=== PATIENT | male | born 1965 | race Two or more races ===

== ENCOUNTER 2020-02-14 20:54 | Inpatient (IN) | payer OTHER ==
[~2020-02-14] VITALS: Ht 177.8 cm; Wt 77.6 kg
--- NOTE | 2020-02-14 21:00 | NUR ---
received patient in no acute distress in bed. patient is a/o x 2 with confusion, but patient able to follow simple commands. Patient is on room air and tolerating well. skin check performed with no skin issues noted. patient transferred to bed and tolerated well. patient right arm is cold, pulseless and blue due to occlusion. Patient transferred from [facility] for emergency surgery. No IV upon arrival and will establish IV prior to surgery. bed in low lock position with rial sup x 2 .call light within reach and all safety measure ensured and carried out.
[2020-02-14] MEDS ORDERED: ONDANSETRON HCL/PF 4 MG/2 ML VIAL IVP PRN (21:30)
[2020-02-14] MEDS ORDERED: HEPARIN SODIUM, PORCINE 5000 UNITS/1 ML VIAL IV ONE (21:30)
[2020-02-14] MEDS ORDERED: MIDAZOLAM HCL 2 MG/2ML VIAL ONE (21:30)
[2020-02-14] MEDS ORDERED: Z GUARD REMEDY 2 OZ OINT TP PRN (21:30)
[2020-02-14] MEDS ORDERED: ROCURONIUM BROMIDE 50 MG/5 ML ONE ×2 (21:30→22:18)
[2020-02-14] MEDS ORDERED: ANESTHESIA TRAY IN PYXIS 1 EA TRAY MC ONE (21:30)
[2020-02-14] MEDS ORDERED: HEPARIN INFUSION/D5W 500 ML IV PRN ×2 (21:30→23:30)
[2020-02-14] MEDS ORDERED: HYDROMORPHONE INJ 2 MG/ML DISP.SYRIN ONE (21:30)
[2020-02-14] MEDS ORDERED: IOHEXOL 240MG/ML 0 ML IV ONE (21:38)
[2020-02-14] MEDS ORDERED: LIDOCAINE 1% INJ 50 ML MDV IJ ONE (21:38)
--- NOTE | 2020-02-14 22:15 | NUR ---
Patient taken by surgery team to perform a thrombectomy, fasciotomy and possible angiogram.
[2020-02-14] MEDS ORDERED: HEPARIN SODIUM, PORCINE 1,000 UNIT/ML VIAL ONE (23:18)
[2020-02-14] MEDS ORDERED: CELLULOSE,OXIDIZED 1 EACH EACH MC ONE (23:19)
[2020-02-15] VITALS (28 sets, daily range): BP systolic 102–142; BP diastolic 58–85
--- NOTE | 2020-02-15 00:44 | NUR ---
awaiting patient arrival from surgery. Unable to give medication at this time.
[2020-02-15] MEDS: IV NS 0.9% 1,000 ML IV PRN ×3 (01:33→16:00)
[2020-02-15] MEDS ORDERED: CEFAZOLIN 1 GM in IV NS 0.9% 50 ML IV SCH ×7 (02:00→10:00)
[2020-02-15] MEDS ORDERED: HEPARIN SODIUM,PORCINE/PF 50 UNIT/5 ML DISP.SYRIN IV ONE (02:00)
[2020-02-15] MEDS ORDERED: HEPARIN SODIUM, PORCINE 5000 UNITS/1 ML VIAL IV ONE (02:00)
[2020-02-15] MEDS: BLOOD SUGAR DIAGNOSTIC 1 EACH STRIP IN SCH ×22 (02:25→23:44)
[2020-02-15] MEDS: PANTOPRAZOLE 40 MG VIAL IV SCH ×2 (02:25→09:23)
[2020-02-15] MEDS: INSULIN REGULAR, HUMAN 100 UNIT in IV NS 0.9% 99 ML IV PRN ×4 (02:52→19:01)
[2020-02-15 04:50] LABS: BASOPHILS # (AUTO) 0.1 /CMM (0.0-0.2); BASOPHILS % (AUTO) 0.4 % (0.0-2.0); HEMATOCRIT 45 % (39-51); LYMPHOCYTES # (AUTO) 0.9 /CMM (0.8-4.8); LYMPHOCYTES % (AUTO) 4.2 % (20.0-44.0); MEAN CORPUSCULAR HGB CONC 33 g/dl (31.0-36.0); MEAN CORPUSCULAR VOLUME 87 fL (80-96); MONOCYTES % (AUTO) 9.1 % (2.0-12.0); NEUTROPHILS # (AUTO) 18.6 /CMM (1.8-8.9); NEUTROPHILS % (AUTO) 86.3 % (43.0-81.0); PLATELET COUNT (AUTO) 177 /CMM (150-450); RED BLOOD CELL COUNT(AUTO) 5.18 MIL/uL (4.5-6.0); WHITE BLOOD COUNT (AUTO) 21.6 K/uL (4.3-11.0)
[2020-02-15 05:10] LABS: CALCIUM, SERUM 7.6 mg/dL (8.5-10.1); CREATININE 1.1 mg/dL (0.6-1.3); MAGNESIUM 2.8 mg/dL (1.8-2.4); PHOSPHORUS 4.2 mg/dL (2.5-4.9); POTASSIUM 5.5 mmol/L (3.5-5.1)
[2020-02-15] MEDS: MORPHINE SULFATE INJ 2 MG/ML DISP.SYRIN IV PRN ×5 (06:41→22:07)
[2020-02-15] MEDS: CEFAZOLIN 1 GM in IV NS 0.9% 50 ML IV SCH ×2 (08:55→16:24)
[2020-02-15 13:17] LABS: CALCIUM, SERUM 7.5 mg/dL (8.5-10.1); CREATININE 1.3 mg/dL (0.6-1.3); POTASSIUM 4.9 mmol/L (3.5-5.1)
--- NOTE | 2020-02-15 19:32 | NUR ---
ASSURANCE ANALYST CLOSING PATIENT AWAKE ORIENTED A/O X2 . PATIENT ON NASAL CANNULA 4L . NO SIGNS OF ACUTE RESPIRATORY DISTRESS. PATIENT ON BED SIDE MONITOR ST 100'S . RIGHT ARM FASCIOTOMY. WITH DRAIN PAULETTE DRAINING RED SANGUINEOUS . WITH PERCY BANDAGE ARM. PATIENT HAS DRY AND RASH GENERALIZED. PATIENT HAS FA 20G. WITH NS 125ML/HR HEPARIN DRIP 1400 UNIT 28ML/HR. INSULIN DRIP RUNNING AT 4 UNITS AN HOUR. PATIENT IS COOPERATIVE WITH CARE. TIMES BED LOCKED LOWEST POSITION CALL LIGHT WITH IN REACH ALL SAFETY MEASURE IMPLEMENTED PER HOSPITAL POLICY.
[2020-02-15 20:32] LABS: CALCIUM, SERUM 7.4 mg/dL (8.5-10.1); CREATININE 1.1 mg/dL (0.6-1.3); POTASSIUM 4.4 mmol/L (3.5-5.1)
[2020-02-16] VITALS (15 sets, daily range): BP systolic 106–128; BP diastolic 43–85
[2020-02-16] MEDS: BLOOD SUGAR DIAGNOSTIC 1 EACH STRIP IN SCH ×11 (00:43→22:53)
[2020-02-16 04:29] LABS: BASOPHILS # (AUTO) 0.1 /CMM (0.0-0.2); BASOPHILS % (AUTO) 0.3 % (0.0-2.0); EOSINOPHILS % (AUTO) 0.7 % (0.0-6.0); HEMATOCRIT 36 % (39-51); HEMOGLOBIN 11.7 g/dL (13.5-17.5); LYMPHOCYTES # (AUTO) 1.7 /CMM (0.8-4.8); LYMPHOCYTES % (AUTO) 8.6 % (20.0-44.0); MEAN CORPUSCULAR HGB CONC 33 g/dl (31.0-36.0); MEAN CORPUSCULAR VOLUME 87 fL (80-96); MONOCYTES # (AUTO) 2.9 /CMM (0.1-1.30); MONOCYTES % (AUTO) 14.3 % (2.0-12.0); NEUTROPHILS # (AUTO) 15.3 /CMM (1.8-8.9); NEUTROPHILS % (AUTO) 76.1 % (43.0-81.0); PLATELET COUNT (AUTO) 213 /CMM (150-450); RED BLOOD CELL COUNT(AUTO) 4.07 MIL/uL (4.5-6.0)
[2020-02-16 04:45] LABS: ALBUMIN 1.8 g/dL (3.4-5.0); BILIRUBIN,TOTAL 0.7 mg/dL (0.2-1.0); CALCIUM, SERUM 7.2 mg/dL (8.5-10.1); MAGNESIUM 2.4 mg/dL (1.8-2.4); PHOSPHORUS 2.5 mg/dL (2.5-4.9); POTASSIUM 4.1 mmol/L (3.5-5.1); TOTAL PROTEIN, SERUM 6.5 g/dL (6.4-8.2)
[2020-02-16] MEDS: MORPHINE SULFATE INJ 2 MG/ML DISP.SYRIN IV PRN ×2 (06:26→14:28)
--- NOTE | 2020-02-16 06:38 | NUR ---
NOTIFIED RACHEL OF PATIENTS ANION GAP OF 12 AND BLOOD SUGAR OF 195 IN THE AM WITH ORDERS TO STOP INSULIN DRIP AND START PATIENT ON AGGRESSIVE SCALE ACHS. READBACK ORDERS PERFORMED AND CARRIED OUT. WILL CONTINUE TO MONITOR. AND SWALLOW EVAL AND DIETARY EVAL ORDERED.
[2020-02-16] MEDS ORDERED: DEXTROSE 50%-WATER 50 ML DISP.SYRIN IV PRN (07:00)
--- NOTE | 2020-02-16 07:30 | NUR ---
CONTENT PRODUCER NOTES RECEIVED PT IN BED, ASLEEP, AROUSABLE TO NAME AND TOUCH, CONFUSED. PATIENT PULLED OUT MIDLINE EARLIER PER CARINA GALINDO SEED ANALYSIS LABORATORY ASSISTANT. ON ROOM AIR, NOT [place]UGUST[place] DISTRESS, SINUS TACH HR 108, DENIES PAIN, NO GRIMACING, LEFT FA G [address] WITH NS AT 125 ML/HR RUNNING, SITE CLEAR. RIGHT ARM WITH BANDAGE, PAULETTE DRAIN IN PLACE WITH SANGUINOUS DRAINAGE ABOUT 5 ML OUTPUT, S/P THROMBECTOMY, FACIOTOMY BY DR. ROY 02/14/20. WEARS DIAPER, WITH BROWNISH COLORED URINE. STILL NPO. CALL LIGHT WITHIN REACH. ISOLATION PRECAUTION FOR COVID POSITIVE. WILL CONT TO MONITOR
--- NOTE | 2020-02-16 07:35 | NUR ---
RN NOTES DR. ROY AT BEDSIDE. ORDERED TO DISCONTINUE HEPARIN DRIP. WILL RE INSERT MIDLINE. KITCHEN STEWARDESS AWARE. FOR SWALLOW EVAL. WOUND TREATMENT- XEROFORM TO SURGICAL SITE, DSD THEN WRAP WITH KERLIX ROLL DAILY.
--- NOTE | 2020-02-16 08:30 | NUR ---
RN NOTES ACCUCHECK DONE. BS 232 MG/DL 8 UNITS HUM R GIVEN PER SS.
[2020-02-16] MEDS: PANTOPRAZOLE 40 MG VIAL IV SCH (08:35)
[2020-02-16] MEDS: ENOXAPARIN SODIUM 80 MG/0.8 ML DISP.SYRIN SQ SCH ×2 (08:42→17:00)
[2020-02-16] MEDS: IV NS 0.9% 1,000 ML IV PRN ×2 (09:08→14:28)
--- NOTE | 2020-02-16 09:30 | NUR ---
RN NOTES DUE MEDS GIVEN. DR. TELLEZ AT BEDSIDE. MAY FEED PATIENT. TRANSFER TO TELEMETRY.
[2020-02-16] MEDS: INSULIN REGULAR, HUMAN 100 UNIT/ML 3 ML VIAL SQ PRN ×2 (10:14→12:37)
--- NOTE | 2020-02-16 11:00 | NUR ---
RN NOTES COVID TEST, REPEAT, #371, COLLECTED AND SENT TO LABORATORY
--- NOTE | 2020-02-16 12:31 | NUR ---
RN NOTES ACCUCHECK DONE. BS 248 MG/DL 8 UNITS HUM R GIVEN PER SS.
--- NOTE | 2020-02-16 13:30 | NUR ---
Patient transferred from ICU, received report ICU/Ewelina. pt in stable condition and vital sign, noticed confused, restlessness, refused dressing change, diaper change, and reposition. Will continue to monitor.
--- NOTE | 2020-02-16 14:00 | NUR ---
RN NOTES PATIENT TRANSFERRED TO RM 118-2, REPORT GIVEN TO KADEN GALINDO FOR AVERY. ALL BELONGINGS BROUGHT WITH PATIENT.
--- NOTE | 2020-02-16 15:30 | NUR ---
Patient obtained mid-line on left upper arm, no active bleeding intact dressing, flashed with NS and good patency.
--- NOTE | 2020-02-16 18:30 | NUR ---
Tele/RN Closing note Patient in bed, sleeping comfortably, does no appears pain or any discomfort. Pt is on oxygen n/c at 2LPM and tolerated, no sob or distress observed. Skin is warm to touch, kept clean/dry, intact new midline site inserted today. Patient refused accu check, medication, change diaper, dressing change, and pulling put oxygen tube, and cardiac cath technologist. Kept low position of the bed with locked wheel and elevated head of bed for secure airway. Call light within reach, will endorse night coordinator.
[2020-02-16] MEDS: LORAZEPAM INJ 2 MG/ML VIAL IV PRN (22:03)
--- NOTE | 2020-02-16 22:22 | NUR ---
FABIOLA/RN PATIENT VERY AGITATED, REMOVING TELE WIRES AND O2, ATIVAN 1 MG IVP WAS GIVEN ORDERED. WILL MONITOR.
[2020-02-16] MEDS: *INSULIN REGULAR(HUMULIN R)HUM 100 UNIT/ML VIAL SQ PRN (22:50)
--- NOTE | 2020-02-16 23:00 | NUR ---
FABIOLA/RN DOZING INTERMITTENTLY, NO SIGNS OF DISTRESS NOTED. CALL LIGHT IN REACH. WILL CONTINUE TO MONITOR.
[2020-02-17] VITALS (7 sets, daily range): BP systolic 104–134; BP diastolic 54–79
[2020-02-17] MEDS: MORPHINE SULFATE INJ 2 MG/ML DISP.SYRIN IV PRN ×3 (00:09→20:53)
--- NOTE | 2020-02-17 00:42 | NUR ---
FABIOLA/RN PATIENT APPEAR SLEEPING AT THIS TIME, APPEAR COMFORTABLE, NO SIGNS OF DISTRESS NOTED, CALL LIGHT IN REACH. WILL CONTINUE TO MONITOR.
--- NOTE | 2020-02-17 06:37 | NUR ---
FABIOLA/RN PATIENT IS AWAKE, COMFORTABLE, NO NO SIGNS OF DISTRESS NOTED, CALL LIGHT IN REACH, ALL NEEDS ATTENDED AT THIS TIME, WILL CONTINUE TO MONITOR.
[2020-02-17 06:52] LABS: BASOPHILS # (AUTO) 0.2 /CMM (0.0-0.2); BASOPHILS % (AUTO) 0.7 % (0.0-2.0); EOSINOPHILS % (AUTO) 0.2 % (0.0-6.0); HEMATOCRIT 28 % (39-51); LYMPHOCYTES % (AUTO) 7.8 % (20.0-44.0); MEAN CORPUSCULAR HGB CONC 32 g/dl (31.0-36.0); MEAN CORPUSCULAR VOLUME 87 fL (80-96); MONOCYTES # (AUTO) 3.4 /CMM (0.1-1.30); MONOCYTES % (AUTO) 13.3 % (2.0-12.0); PLATELET COUNT (AUTO) 254 /CMM (150-450); RED BLOOD CELL COUNT(AUTO) 3.22 MIL/uL (4.5-6.0); WHITE BLOOD COUNT (AUTO) 25.7 K/uL (4.3-11.0)
[2020-02-17 07:16] LABS: CALCIUM, SERUM 7.7 mg/dL (8.5-10.1); CREATININE 0.9 mg/dL (0.6-1.3); POTASSIUM 4.3 mmol/L (3.5-5.1)
--- NOTE | 2020-02-17 08:00 | NUR ---
OPENING RN NOTES RECEIVED PATIENT SLEEPING AND RESTING IN BED. A&O X2. VS STABLE WITH NOO ACUTE DISTRESS. BREATHING EVEN AND UNLABORED ON 2L NS WITH NO RESPIRATORY DISTRESS. PATIENT STATES TO HAVE MILD PAIN, WILL PROVIDE PRN MEDICATION FOR PAIN. TELEMONITOR IN PLACE, PATIENT SR TACHY HR 120. LAC 20G. NS @ 40ML/HR. PAULETTE DRAINAGE ON RIGHT ARM, CLEANED AND EMPTY. SAFETY MEASURES IN PLACE, BED LOCKED IN THE LOWEST POSITION. SIDE RAILS UP X 3. CALL LIGHT WITHIN REACH. WILL CONTINUE TO MONITOR
[2020-02-17] MEDS: BLOOD SUGAR DIAGNOSTIC 1 EACH STRIP IN SCH ×4 (08:13→22:01)
[2020-02-17] MEDS: PANTOPRAZOLE 40 MG VIAL IV SCH (08:22)
[2020-02-17] MEDS: ENOXAPARIN SODIUM 80 MG/0.8 ML DISP.SYRIN SQ SCH ×2 (08:24→16:41)
[2020-02-17] MEDS: INSULIN REGULAR, HUMAN 100 UNIT/ML 3 ML VIAL SQ PRN ×3 (08:28→17:07)
[2020-02-17 10:00] LABS: BAND % (MANUAL) 5 % (0.0-5.0); LYMPHOCYTES % (MANUAL) 5 % (16-48); METAMYELOCYTES % 1 % (0-0); MONOCYTES % (MANUAL) 11 % (0-11.0); MYELOCYTES % 2 % (0-0); NEUTROPHILS % (MANUAL) 76 (42-76)
--- NOTE | 2020-02-17 10:00 | NUR ---
ASSESSED PAIN WITH PATIENT, PATIENT STATED TO HAVE 10/10 PAIN IN A NUMERICAL SCALE FROM 0 TO 10. IV MORPHINE WAS GIVEN PRN MEDICATION.
--- NOTE | 2020-02-17 10:30 | NUR ---
PAIN MEDICATION REASSESSMENT RR 16; PAIN HAS DECREASED TO AN ACCEPTABLE LEVEL 2/10
[2020-02-17] MEDS: IV D5W 1,000 ML IV PRN (11:56)
--- NOTE | 2020-02-17 13:00 | NUR ---
PATIENT SEEM AGITATED AND ANXIOUS, REQUESTED ATIVAN ATIVAN PRN WAS GIVEN TO THE PATIENT
[2020-02-17] MEDS: LORAZEPAM INJ 2 MG/ML VIAL IV PRN (14:00)
--- NOTE | 2020-02-17 14:00 | NUR ---
ATIVAN REASSESSMENT PATIENT SEEN MORE CALM AND LESS ANXUIOUS SEMM MORE RELAXED AND ABLE TO REST. RR 18 HR 99
--- NOTE | 2020-02-17 14:37 | NUR ---
Social service consult requested by MD for homelessness. Per chart review and MD notes, pt is 54-year-old male patient who presented to [facility] as a direct admission, coming from [facility]-emergency department. The patient was brought in by the paramedics to the mentioned emergency department due to acute right arm pain for the last 5 days; worse today. The patient described the pain as aching pain, 10/10 in severity with right arm coldness. The patient has a history of alcohol abuse and drug abuse, he also admits to homelessness, and currently lives in a motel. The patient also states that he was diagnosed with COVID-19 2 weeks ago, and he was treated with antibiotics for 5 days and placed on self isolation while at the motel. The patient also admits to be diabetic; and noncompliant. Multiple attempts were done to transfer the patient for higher level of care; unfortunately, the patient was not able to be transferred to [facility] nor [facility]. The patient was accepted by interventional vascular surgery-Dr. Sidhu. 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 COLLECTIONS MANAGER attempted to call the pt via phone in lieu of Covid. However pt did not answer the phone. COLLECTIONS MANAGER consulted with FABIOLA COLIN Haider via phone and was that pt is non-compliant, agitated and had to be placed on restraints due to pulling out IV's etc. Vegetable Loader to be available to assess pt when pt is more alert, oriented and cooperative.
[2020-02-17] MEDS ORDERED: INSU100V39 SQ (16:06)
[2020-02-17] MEDS ORDERED: INSU100V7 SQ (16:06)
[2020-02-17] MEDS ORDERED: ALBU8.5H8 INH (16:06)
[2020-02-17] MEDS ORDERED: RIVA10TA PO (16:06)
[2020-02-17] MEDS ORDERED: METF-441 PO (16:06)
[2020-02-17] MEDS ORDERED: ACET-2605 PO (16:06)
--- NOTE | 2020-02-17 17:53 | NUR ---
RN CLOSING NOTES OPENING RN NOTES PATIENT SLEEPING AND RESTING IN BED. A&O X2. VS STABLE WITH NO ACUTE DISTRESS. BREATHING EVEN AND UNLABORED ON 2L NS WITH NO RESPIRATORY DISTRESS. TELEMONITOR IN PLACE, PATIENT SR ST TACHY. LAC 20G. D5W @ 40ML/HR. PAULETTE DRAINAGE ON RIGHT ARM, CLEANED AND EMPTY. SAFETY MEASURES IN PLACE, BED LOCKED IN THE LOWEST POSITION. SIDE RAILS UP X 2. CALL LIGHT WITHIN REACH. WILL ENDORSE THE INCOMING NURSE TO CONTINUE THE CARE OF THE PATIENT.
--- NOTE | 2020-02-17 19:10 | NUR ---
RN NOTES: RECEIVED AWAKE ON BED A/OX1-2 WITH PERIODS OF CONFUSION AND RESTLESSNESS, ABLE TO VERBALIZED NEEDS, ON TELE MONITOR SINUS RHYTHM AND SINUS TACHYCARDIA-110,LAC G#20 IVF ONGOING, O2 AT 2L/MIN, NATHALIA ACOSTA DRAIN ON THE RIGHT ARM.ORIENTED TO UNIT AND STAFF, FALL SAFETY AND ASPIRATION PRECAUTION OBSERVED,ISOLATION PRECAUTION OBSERVED.BED LOW AND LOCKED, CALL LIGHT WITHIN EASY REACH.NO SOB ,NON LABORED BREATHING,AFEBRILE.
--- NOTE | 2020-02-17 21:03 | NUR ---
NURSES NOTES: DURING ROUNDS NOTICE PATIENT IS MOANING WHEN ASK IF HE IS IN PAIN, HE ANSWERED YES,HE IS GRIMACING AND LOOKING RESTLESS, ON SOFT RESTRAINT,CHECK HIS CIRCULATION AT FREQUENT INTERVALS, GOOD CAPILLARY REFILL AND ABLE TO MOVE WRIST AND HAND FREELY.KEPT ON CLOSE WATCH.
[2020-02-17] MEDS: *INSULIN REGULAR(HUMULIN R)HUM 100 UNIT/ML VIAL SQ PRN (21:51)
--- NOTE | 2020-02-17 21:51 | NUR ---
RN NOTES: BLOOD SUGAR CHECKED-227, INSULIN GIVEN PER SCALE, WILL CONTINUE TO MONITOR FOR SIGN OF HYPER AND HYPOGLYCEMIA.ON CLOSE WATCH. HE LOOKS MORE COMFORTABLE NOW, NOT RESTLESS.
--- NOTE | 2020-02-17 23:08 | NUR ---
RN NOTES: EVENING CARE DONE, HE PASS MODERATE AMOUNT OF BLACKISH/DARK REDDISH FORMED STOOL, CLEANED AND CHANGE, NOTIFIED RN/CN, PATIENT LATEST HG-9, ABDOMEN IS SOFT, NON TENDER, BOWEL SOUND PRESENT, WILL CONTINUE TO MONITOR AND WILL NOTIFY FOR ANY CHANGE OF CONDITION, OF NOW PATIENT IS LYING COMFORTABLY, NO PAIN OR DISCOMFORT, NON LABORED BREATHING.WILL CONTINUE TO KEEP ON CLOSE WATCH.
[2020-02-18] VITALS: BP 118/79
[2020-02-18 04:00] VITALS: BP 125/77
--- NOTE | 2020-02-18 04:18 | NUR ---
RN NOTES: ABLE TO SLEEP AT SHORT INTERVALS, REPOSITIONING DONE, NEEDS ATTENDED, REMAINS AFEBRILE, NO SIGN OF RESPIRATORY DISTRESS NOTED, KEPT ON CLOSE VISUAL CHECK, NO BLEEDING NOTED ON THE RUE, BLUISH DISCOLORATION NOTED ON THE RIGHT FINGERS TO BE SEEN BY MD.ON CLOSE VISUAL CHECK.
[2020-02-18] MEDS: BLOOD SUGAR DIAGNOSTIC 1 EACH STRIP IN SCH ×4 (07:30→22:44)
--- NOTE | 2020-02-18 07:37 | NUR ---
RN NOTES: ABLE TO SLEEP, KEPT ON CLOSE WATCH, HIGH RISK FOR FALL, HE DO NOT GRIMACE ANYMORE, LOOKS MORE COMFORTABLE AND ABLE TO REST,IVF OF D5%W AT 40 ML/HR CONTINUE, NON LABORED BREATHING, NATHALIA ACOSTA DRAIN STILL WITH SEROSANGUINEOUS DRAINAGE. ENDORSED FOR CONTINUITY OF CARE TO BE REFERRED TO MD REGARDING HIS DISCOLORATION IN THE RIGHT AND NOTED WITH ON AND OFF COUGH.
[2020-02-18 08:00] VITALS: BP 138/76
[2020-02-18] MEDS: INSULIN REGULAR, HUMAN 100 UNIT/ML 3 ML VIAL SQ PRN ×4 (08:57→22:43)
[2020-02-18] MEDS: PANTOPRAZOLE 40 MG VIAL IV SCH (08:59)
[2020-02-18] MEDS: ENOXAPARIN SODIUM 80 MG/0.8 ML DISP.SYRIN SQ SCH ×2 (09:06→16:00)
[2020-02-18 12:00] VITALS: BP 130/68
[2020-02-18 13:04] LABS: CALCIUM, SERUM 8.6 mg/dL (8.5-10.1); CREATININE 0.9 mg/dL (0.6-1.3); POTASSIUM 3.8 mmol/L (3.5-5.1)
[2020-02-18 13:07] LABS: BASOPHILS # (AUTO) 0.2 /CMM (0.0-0.2); BASOPHILS % (AUTO) 0.7 % (0.0-2.0); EOSINOPHILS % (AUTO) 0.3 % (0.0-6.0); HEMATOCRIT 32 % (39-51); HEMOGLOBIN 9.7 g/dL (13.5-17.5); LYMPHOCYTES # (AUTO) 2.3 /CMM (0.8-4.8); MEAN CORPUSCULAR HGB CONC 31 g/dl (31.0-36.0); MEAN CORPUSCULAR VOLUME 89 fL (80-96); MONOCYTES # (AUTO) 3.2 /CMM (0.1-1.30); MONOCYTES % (AUTO) 9.7 % (2.0-12.0); NEUTROPHILS # (AUTO) 27.5 /CMM (1.8-8.9); NEUTROPHILS % (AUTO) 82.3 % (43.0-81.0); PLATELET COUNT (AUTO) 320 /CMM (150-450); RED BLOOD CELL COUNT(AUTO) 3.56 MIL/uL (4.5-6.0)
[2020-02-18 14:20] LABS: WHITE BLOOD COUNT (AUTO) 33.4 K/uL (4.3-11.0)
[2020-02-18 14:21] LABS: BAND % (MANUAL) 5 % (0.0-5.0); LYMPHOCYTES % (MANUAL) 10 % (16-48); MONOCYTES % (MANUAL) 7 % (0-11.0); NEUTROPHILS % (MANUAL) 78 (42-76)
[2020-02-18] MEDS: IV D5W 1,000 ML IV PRN (15:22)
[2020-02-18 16:00] VITALS: BP 123/77
--- NOTE | 2020-02-18 16:05 | NUR ---
DOCTOR ROSALINDA NOTIFIED OF SIGNS OF BLEEDING INCLUDE CRIMSON STOOL, EASY BRUISING, DARK COLOR FINGER NAILS. MD NOTIFIED WELL ABOUT MEDICATION ORDERS FOR RECONCILIATION PENDING MD REVIEW/APPROVAL FOR CONTINUATION AT REQUEST OF PHARMACY STAFF MEMBER, TIM. MARA Mcginnis RN
[2020-02-18 20:00] VITALS: BP 110/59
[2020-02-18] MEDS: LORAZEPAM INJ 2 MG/ML VIAL IV PRN (21:23)
[2020-02-18] MEDS: MORPHINE SULFATE INJ 2 MG/ML DISP.SYRIN IV PRN (22:46)
[2020-02-19] VITALS: BP 134/67
[2020-02-19] MEDS: MORPHINE SULFATE INJ 2 MG/ML DISP.SYRIN IV PRN (03:39)
[2020-02-19 04:00] VITALS: BP 131/73
[2020-02-19] MEDS: LORAZEPAM INJ 2 MG/ML VIAL IV PRN (05:49)
--- NOTE | 2020-02-19 06:43 | NUR ---
rn notes alert, verbally able to communicate needs. slightly disoriented. in pain 8/10 in right forearm, morphine given x 2, effective. tried to get out of bed, very anxious, ativan administered x 2. noted surgical incission on right forearm slightly bleeding, with closed blisters and fingernails black in color. vital signs wnl. remains afebrile. on room air tolerating well, breathing even and unlabored. will endorse to next shift for continuity of care.
[2020-02-19 07:20] LABS: BASOPHILS # (AUTO) 0.1 /CMM (0.0-0.2); BASOPHILS % (AUTO) 0.2 % (0.0-2.0); EOSINOPHILS % (AUTO) 0.8 % (0.0-6.0); HEMATOCRIT 26 % (39-51); HEMOGLOBIN 8.2 g/dL (13.5-17.5); LYMPHOCYTES # (AUTO) 2.5 /CMM (0.8-4.8); LYMPHOCYTES % (AUTO) 9.2 % (20.0-44.0); MEAN CORPUSCULAR HGB CONC 31 g/dl (31.0-36.0); MEAN CORPUSCULAR VOLUME 89 fL (80-96); MONOCYTES # (AUTO) 2.9 /CMM (0.1-1.30); MONOCYTES % (AUTO) 10.9 % (2.0-12.0); NEUTROPHILS # (AUTO) 21.3 /CMM (1.8-8.9); NEUTROPHILS % (AUTO) 78.9 % (43.0-81.0); PLATELET COUNT (AUTO) 316 /CMM (150-450); RED BLOOD CELL COUNT(AUTO) 2.95 MIL/uL (4.5-6.0)
[2020-02-19 07:37] LABS: CALCIUM, SERUM 8.1 mg/dL (8.5-10.1); CREATININE 0.8 mg/dL (0.6-1.3); POTASSIUM 3.4 mmol/L (3.5-5.1)
[2020-02-19] MEDS: BLOOD SUGAR DIAGNOSTIC 1 EACH STRIP IN SCH ×4 (07:56→23:07)
[2020-02-19 08:00] VITALS: BP 127/84
[2020-02-19] MEDS: PANTOPRAZOLE 40 MG VIAL IV SCH (09:11)
[2020-02-19] MEDS: ENOXAPARIN SODIUM 80 MG/0.8 ML DISP.SYRIN SQ SCH ×2 (09:12→21:32)
--- NOTE | 2020-02-19 09:21 | NUR ---
the patient pulled out his PAULETTE drain from his right arm incision , no bleeding , Dr Jiang called and informed by phone ,no ordered needed keep same dressing routine .
[2020-02-19] MEDS ORDERED: POTASSIUM CHLORIDE 20 MEQ TAB.PRT.SR PO SCH (10:30)
[2020-02-19] MEDS: POTASSIUM CL. PREMIX PERIPHER. 50 ML IV SCH ×4 (11:25→13:30)
[2020-02-19 11:28] LABS: OCCULT BLOOD STOOL POSITIVE (NEGATIVE)
[2020-02-19 11:44] LABS: PHOSPHORUS 2.9 mg/dL (2.5-4.9)
[2020-02-19 16:00] VITALS: BP 127/74
[2020-02-19] MEDS: INSULIN REGULAR, HUMAN 100 UNIT/ML 3 ML VIAL SQ PRN (16:49)
[2020-02-19 20:00] VITALS: BP 110/70
[2020-02-19] MEDS: IV D5W 1,000 ML IV PRN (20:44)
[2020-02-19] MEDS: *INSULIN REGULAR(HUMULIN R)HUM 100 UNIT/ML VIAL SQ PRN (23:06)
[2020-02-20] VITALS: BP 112/69
[2020-02-20] MEDS: LORAZEPAM INJ 2 MG/ML VIAL IV PRN (03:07)
[2020-02-20 04:00] VITALS: BP 132/87
[2020-02-20] MEDS: MORPHINE SULFATE INJ 2 MG/ML DISP.SYRIN IV PRN (05:17)
[2020-02-20 06:26] LABS: BASOPHILS % (AUTO) 0.1 % (0.0-2.0); EOSINOPHILS % (AUTO) 0.8 % (0.0-6.0); HEMATOCRIT 24 % (39-51); HEMOGLOBIN 7.9 g/dL (13.5-17.5); LYMPHOCYTES # (AUTO) 1.9 /CMM (0.8-4.8); LYMPHOCYTES % (AUTO) 10.1 % (20.0-44.0); MEAN CORPUSCULAR HGB CONC 33 g/dl (31.0-36.0); MEAN CORPUSCULAR VOLUME 87 fL (80-96); MONOCYTES # (AUTO) 2.3 /CMM (0.1-1.30); MONOCYTES % (AUTO) 12.4 % (2.0-12.0); NEUTROPHILS # (AUTO) 14.1 /CMM (1.8-8.9); NEUTROPHILS % (AUTO) 76.6 % (43.0-81.0); PLATELET COUNT (AUTO) 260 /CMM (150-450); RED BLOOD CELL COUNT(AUTO) 2.72 MIL/uL (4.5-6.0); WHITE BLOOD COUNT (AUTO) 18.5 K/uL (4.3-11.0)
[2020-02-20 06:30] LABS: CALCIUM, SERUM 7.2 mg/dL (8.5-10.1); CREATININE 0.8 mg/dL (0.6-1.3); MAGNESIUM 1.3 mg/dL (1.8-2.4); PHOSPHORUS 2.3 mg/dL (2.5-4.9); POTASSIUM 3.1 mmol/L (3.5-5.1)
[2020-02-20 08:00] VITALS: BP 136/69
[2020-02-20] MEDS: PANTOPRAZOLE 40 MG VIAL IV SCH (08:12)
[2020-02-20] MEDS: ENOXAPARIN SODIUM 80 MG/0.8 ML DISP.SYRIN SQ SCH (08:14)
--- NOTE | 2020-02-20 08:42 | NUR ---
SOCIAL SERVICE NOTE: NEERAJ received handoff for follow up on 54 year old homeless male with history of alcohol/substance abuse. Pt was recently diagnosed with COVID-19; 2 weeks ago-treated with antibiotics for 5 days: SARS-CoV-2 PCR negative on 02/15 and positive on 02/16. NEERAJ consulted with Kelly GALINDO, who states pt continues to be on restraints due to pt trying to remove IV's and not understanding his limitations. Per RN, pt is alert and oriented x1; to name only. Pt is otherwise confused, disoriented, and disorganized. Pt does not have any emergency contacts listed on facesheet. director of child welfare services will continue to follow up as needed. Addendum: 02/20/20 at 0951 by KELLY PICKARD When pt is stable he will need referral to [facility] Quarantine and Isolation Intake Call Center [phone].
[2020-02-20] MEDS: BLOOD SUGAR DIAGNOSTIC 1 EACH STRIP IN SCH ×4 (08:48→21:32)
[2020-02-20] MEDS: INSULIN REGULAR, HUMAN 100 UNIT/ML 3 ML VIAL SQ PRN ×3 (08:49→17:58)
[2020-02-20] MEDS: Magnesium 1GM/D5W 100ML PREMIX 100 ML IV SCH ×2 (10:21→12:26)
[2020-02-20] MEDS: ENOXAPARIN SODIUM 40 MG/0.4 ML DISP.SYRIN SQ SCH ×2 (11:00→20:37)
--- NOTE | 2020-02-20 11:43 | NUR ---
TELE/RN NOTE LOVENOX 80 MG SUBQ DUE AT 1100 IS NOT ADMINISTERED DUE TO PATIENT WAS ALREADY GVEN LOVENOX [address] TELLEZ IS MADE AWARE.
[2020-02-20 12:00] VITALS: BP 132/61
[2020-02-20] MEDS: POTASSIUM PHOSPHATE MM 7.5 MMOL in IV NS 0.9% 100 ML IV SCH ×2 (13:42→17:04)
--- NOTE | 2020-02-20 15:15 | NUR ---
TELE/RN NOTE THE PATIENT IS SEEN BY DR NASH WITH NEW ORDER OF PROTONIX 40 MG PO Q12HR. THE ORDER IS READ BACK, VERIFIED. NOTED AND CARRIED OUT.
[2020-02-20 16:00] VITALS: BP 145/69
--- NOTE | 2020-02-20 18:11 | NUR ---
TELE/RN NOTE RECEIVED ORDER FROM DR TELLEZ FOR LEFT SOFT-WRIST RESTRAIN DUE TO ATTEMPTING PUTTING OUT IV LINES. NOTED AND CARRIED OUT.
--- NOTE | 2020-02-20 18:14 | NUR ---
TELE/RN NOTE THE PATIENT IS ALERT AND ORIENTED TO SELF, DACIA TO COMMUNICATE VERBALLY. PATIENT HAS CLEAR SPEECH. DENIES SOB. RESPIRATION REGULAR AND UNLABORED. PATIENT IS IN ROOM AIR AT THIS TIME AND OXYGEN SATURATION IS AT 94%. DENIES PAIN. THE PATIENT IN NO APPARENT DISTRESS. RIGHT UPPER ARM DRESSING ON PER ORDER. EXTERNAL TELE BOX READING IS 103. THE PATIENT IN NO APPARENT DISTRESS. LEFT SOFT RESTRAIN ON PER ORDER AND NO S/S POOR CIRCULATION NOTED, NO SKIN BREAKDOWN NOTED. LEFT UPPER ARM G 18 PATENT AND SALINE LOCKED. BED LOW AND LOCKED. SIDE RAILS UP X3. CALL LIGHT WITHIN REACH. WILL ENDORSE TO SHOT FIREMAN.
--- NOTE | 2020-02-20 18:29 | NUR ---
TELE/RN NOTE DR TELLEZ IS MADE AWARE THAT THE PATIENT`S POTASSIUM LEVEL IS 3.1. PER MD THE PATIENT ALREADY GOT 2 BAGS OF POTASSIUM PHOSPHATE AND THERE IS NO NEED FOR MORE REPLACEMENT.
[2020-02-20 20:00] VITALS: BP 135/72
[2020-02-20] MEDS: PANTOPRAZOLE 40 MG TABLET.DR PO SCH (20:37)
[2020-02-20] MEDS: ACETAMINOPHEN 325 MG TABLET PO PRN (20:38)
[2020-02-20] MEDS: *INSULIN REGULAR(HUMULIN R)HUM 100 UNIT/ML VIAL SQ PRN (21:34)
[2020-02-21] VITALS: BP 107/65
[2020-02-21 04:00] VITALS: BP 120/65
[2020-02-21 06:17] LABS: BASOPHILS # (AUTO) 0.1 /CMM (0.0-0.2); BASOPHILS % (AUTO) 0.4 % (0.0-2.0); HEMATOCRIT 23 % (39-51); HEMOGLOBIN 7.5 g/dL (13.5-17.5); LYMPHOCYTES % (AUTO) 11.6 % (20.0-44.0); MEAN CORPUSCULAR HGB CONC 33 g/dl (31.0-36.0); MEAN CORPUSCULAR VOLUME 86 fL (80-96); MONOCYTES # (AUTO) 1.9 /CMM (0.1-1.30); MONOCYTES % (AUTO) 11.1 % (2.0-12.0); NEUTROPHILS # (AUTO) 12.8 /CMM (1.8-8.9); NEUTROPHILS % (AUTO) 75.9 % (43.0-81.0); PLATELET COUNT (AUTO) 286 /CMM (150-450); RED BLOOD CELL COUNT(AUTO) 2.61 MIL/uL (4.5-6.0); WHITE BLOOD COUNT (AUTO) 16.9 K/uL (4.3-11.0)
[2020-02-21 06:30] LABS: CALCIUM, SERUM 7.1 mg/dL (8.5-10.1); CREATININE 0.7 mg/dL (0.6-1.3); MAGNESIUM 1.5 mg/dL (1.8-2.4); PHOSPHORUS 2.5 mg/dL (2.5-4.9)
[2020-02-21 06:32] LABS: POTASSIUM 2.7 mmol/L (3.5-5.1)
--- NOTE | 2020-02-21 07:30 | NUR ---
PARCEL POST ORDER CLERK NOTES RECEIVED PATIENT IN BED ASLEEP, AROUSABLE TO VERBAL AND TACTILE STIMULI. HOB ELEVATED. ON ROOM AIR WITH SPO2 OF 98%. NO SOB, NO COUGH. DENIES ANY C/O PAIN NOR DISCOMFORT AT THIS TIME. ON TELE MONITORING ST 108. LACHO MIDLINE INTACT AND PATENT. BED IN LOWEST POSITION, LOCKED. BILATERAL WRIST RESTRAINTS IN PLACE. CALL LIGHT WITHIN REACH. FREQUENT VISUAL CHECK DONE. ABLE TO VERBALIZE NEEDS.
[2020-02-21 08:00] VITALS: BP 131/64
[2020-02-21] MEDS: BLOOD SUGAR DIAGNOSTIC 1 EACH STRIP IN SCH ×4 (08:01→21:59)
[2020-02-21] MEDS: ENOXAPARIN SODIUM 40 MG/0.4 ML DISP.SYRIN SQ SCH ×2 (09:00→10:27)
[2020-02-21] MEDS: PANTOPRAZOLE 40 MG TABLET.DR PO SCH ×2 (09:07→20:53)
[2020-02-21] MEDS: POTASSIUM CHLORIDE 20 MEQ TAB.PRT.SR PO SCH ×2 (09:07→12:57)
--- NOTE | 2020-02-21 09:08 | NUR ---
BREAD BAKER NOTES HELD LOVENOX APTT 55.9, PATIENT + STOOL OB HGB 7.5 HCT 23
[2020-02-21] MEDS: INSULIN REGULAR, HUMAN 100 UNIT/ML 3 ML VIAL SQ PRN ×3 (09:16→17:08)
--- NOTE | 2020-02-21 10:29 | NUR ---
MONUMENT SETTER NOTES PATIENT SEEN BY MACY, PROGRAM CONSULTANT SPOKE TO MACY AND HE HAD REVIEWED LABS AND OK TO GIVE LOVENOX.
[2020-02-21] MEDS: Magnesium 1GM/D5W 100ML PREMIX 100 ML IV SCH ×2 (11:22→12:54)
[2020-02-21 12:00] VITALS: BP 103/56
--- NOTE | 2020-02-21 13:50 | NUR ---
LAY HEALTH ADVOCATE NOTES RELAYED TO MICHAEL CAVAZOS RE: MED RECON
[2020-02-21 16:00] VITALS: BP 121/70
--- NOTE | 2020-02-21 18:36 | NUR ---
WELDING ROD COATER NOTES PATIENT RESTING COMFORTABLY IN BED, WATCHING TV. HOB ELEVATED. NO S/S OF RESPIRATORY DISTRESS. DENIES ANY C/O PAIN NOR DISCOMFORT AT THIS TIME. RIGHT ARM WOUND CARE DONE RADHA WELL. DENIES ANY C/O N/V/D. MONITORED FOR S/S OF BLEEDING, NONE NOTED DURING THE SHIFT. LACHO MIDLINE INTACT AND PATENT. BED IN LOWEST POSITION, LOCKED. BILATERAL WRIST RESTRAINTS IN PLACE, RELEASE WITH SKIN CHECK AND CIRCULATION DONE. BM X1 SOFT AND FORMED DARK BROWN IN COLOR. CALL LIGHT WITHIN REACH. FREQUENT VISUAL CHECK DONE. ABLE TO VERBALIZE NEEDS. IN NO APPARENT DISTRESS.
--- NOTE | 2020-02-21 19:30 | NUR ---
RN OPENING NOTE PATIENT IN BED, WATCHING TV WITH HOB ELEVATED. NO S/S OF RESPIRATORY DISTRESS PT ON ROOM AIR. DENIES PAIN AT THIS TIME. LACHO MIDLINE INTACT, PATENT AND FLUSHING WELL. SAFETY MEASURES IN PLACE BED IN LOWEST POSITION AND LOCKED. BILATERAL WRIST RESTRAINTS IN PLACE, RELEASE WITH SKIN CHECK AND CIRCULATION DONE. CALL LIGHT WITH IN REACH WILL CONTINUE TO MONITOR PT.
[2020-02-21 20:00] VITALS: BP 116/59
[2020-02-21] MEDS: ACETAMINOPHEN 325 MG TABLET PO PRN (20:53)
[2020-02-21] MEDS: INSULIN GLARGINE, 100 UNIT/ML CARTRIDGE SQ SCH (22:05)
[2020-02-21] MEDS: *INSULIN REGULAR(HUMULIN R)HUM 100 UNIT/ML VIAL SQ PRN (22:09)
[2020-02-21 23:55] LABS: HEMOGLOBIN 7.4 g/dL (13.5-17.5)
[2020-02-22] VITALS: BP 121/68
[2020-02-22 04:00] VITALS: BP 114/65
[2020-02-22] MEDS: ACETAMINOPHEN 325 MG TABLET PO PRN (05:04)
--- NOTE | 2020-02-22 06:36 | NUR ---
RN CLOSING NOTE PATIENT IN BED, WITH HOB ELEVATED. NO S/S OF RESPIRATORY DISTRESS ON O2 2 L/MIN VIA NC. DENIED PAIN DURING SHIFT. LACHO MIDLINE INTACT, PATENT AND FLUSHING WELL. MADE AWARE PT IS TO CALL HEREDITARY CANCER PROGRAM COORDINATOR BEFORE BEING DISCHARGED. URINAL AT BEDSIDE, SAFETY MEASURES IN PLACE, BED IN LOWEST POSITION AND LOCKED. BILATERAL WRIST RESTRAINTS ON AND RELEASED WITH SKIN CHECK AND CIRCULATION DONE. CALL LIGHT WITH IN REACH. ENDORSED TO AM RN FOR AVERY
[2020-02-22 07:11] LABS: ALBUMIN 1.6 g/dL (3.4-5.0); BILIRUBIN,TOTAL 0.7 mg/dL (0.2-1.0); CALCIUM, SERUM 7.6 mg/dL (8.5-10.1); CREATININE 0.6 mg/dL (0.6-1.3); MAGNESIUM 1.6 mg/dL (1.8-2.4); POTASSIUM 3.1 mmol/L (3.5-5.1); TOTAL PROTEIN, SERUM 7.2 g/dL (6.4-8.2)
[2020-02-22 07:17] LABS: BASOPHILS # (AUTO) 0.1 /CMM (0.0-0.2); BASOPHILS % (AUTO) 0.3 % (0.0-2.0); EOSINOPHILS % (AUTO) 1.1 % (0.0-6.0); HEMATOCRIT 23 % (39-51); HEMOGLOBIN 7.5 g/dL (13.5-17.5); LYMPHOCYTES # (AUTO) 1.5 /CMM (0.8-4.8); LYMPHOCYTES % (AUTO) 7.6 % (20.0-44.0); MEAN CORPUSCULAR HGB CONC 33 g/dl (31.0-36.0); MEAN CORPUSCULAR VOLUME 87 fL (80-96); MONOCYTES # (AUTO) 2.5 /CMM (0.1-1.30); MONOCYTES % (AUTO) 12.5 % (2.0-12.0); NEUTROPHILS # (AUTO) 15.9 /CMM (1.8-8.9); NEUTROPHILS % (AUTO) 78.5 % (43.0-81.0); PLATELET COUNT (AUTO) 326 /CMM (150-450); RED BLOOD CELL COUNT(AUTO) 2.62 MIL/uL (4.5-6.0); WHITE BLOOD COUNT (AUTO) 20.3 K/uL (4.3-11.0)
[2020-02-22] MEDS: Magnesium 1GM/D5W 100ML PREMIX 100 ML IV SCH ×3 (07:18→09:18)
[2020-02-22] MEDS: BLOOD SUGAR DIAGNOSTIC 1 EACH STRIP IN SCH ×4 (07:30→22:29)
[2020-02-22 08:00] VITALS: BP 116/58
[2020-02-22] MEDS ORDERED: Sodium Phosphate 15 MMOL in IV NS 0.9% 245 ML IV SCH (08:00)
[2020-02-22] MEDS: PANTOPRAZOLE 40 MG TABLET.DR PO SCH ×2 (09:39→20:00)
[2020-02-22] MEDS: ENOXAPARIN SODIUM 40 MG/0.4 ML DISP.SYRIN SQ SCH (10:12)
[2020-02-22] MEDS: POTASSIUM CHLORIDE 20 MEQ TAB.PRT.SR PO SCH ×3 (11:43→13:38)
[2020-02-22 12:00] VITALS: BP 119/51
[2020-02-22 16:00] VITALS: BP 147/76
[2020-02-22] MEDS ORDERED: FEE PK DOSING 1 MIN EA MC ONE (17:17)
[2020-02-22] MEDS: DABIGATRAN ETEXILATE MESYLATE 150 MG CAPSULE PO SCH (17:57)
[2020-02-22] MEDS: VANCOMYCIN 1.25 GM in IV D5W 250 ML IV SCH (17:58)
[2020-02-22] MEDS ORDERED: CEFEPIME 1 GM in IV D5W 50 ML IV SCH (18:00)
[2020-02-22] MEDS: MORPHINE SULFATE INJ 2 MG/ML DISP.SYRIN IV PRN (18:17)
--- NOTE | 2020-02-22 19:04 | NUR ---
PATIENT IS IN BED SLEEP. NO SIGNS OR SYMPTOMS OF PAIN OR DISTRESS. NO SIGNS OF RESPIRATORY DISTRESS. BED IN LOW POSITION. CALL LIGHT IN REACH. WILL PASS REPORT TO NIGHT NURSE.
--- NOTE | 2020-02-22 19:32 | NUR ---
RN OPENING NOTE PATIENT IN BED, WITH HOB ELEVATED. NO S/S OF RESPIRATORY DISTRESS. LACHO MIDLINE INTACT, PATENT AND FLUSHING WELL. URINAL AT BEDSIDE, SAFETY MEASURES IN PLACE, BED IN LOWEST POSITION AND LOCKED. BILATERAL WRIST RESTRAINTS ON AND RELEASED WITH SKIN CHECK AND CIRCULATION DONE. CALL LIGHT WITH IN REACH WILL CONTINUE TO MONITOR PT
[2020-02-22 20:00] VITALS: BP 111/62
[2020-02-22] MEDS: CEFEPIME 1 GM in IV D5W 50 ML IV SCH (20:00)
--- NOTE | 2020-02-22 20:30 | NUR ---
SUEDE CLEANER NOTES RECEIVED PATIENT FROM NIGHTSHIFT NURSEHERB. PATIENT IN BED RESTING, ALERT AND ORIENTED X3. NO SIGNS OF RESPIRATORY DISTRESS, ON ROOM AIR. ON ISOLATION PRECAUTIONS. PATIENT IV ACCESS INTACT AND PATENT. SAFETY PRECAUTIONS IN PLACE WITH BED LOCKED, BILATERAL SIDE RAILS UP, CALL LIGHT WITHIN EASY REACH OF PATIENT. WILL CONTINUE TO MONITOR PATIENT.
[2020-02-22] MEDS: INSULIN GLARGINE, 100 UNIT/ML CARTRIDGE SQ SCH (22:33)
--- NOTE | 2020-02-22 22:33 | NUR ---
PLANT OPERATIONS WORKER NOTES PATIENT'S BLOOD SUGAR, 325, PER SLIDING SCALE PROTOCOL, 8 UNITS OF INSULIN ADMINISTERED. PROVIDED JUICE AND SNACKS TO PATIENT. WILL CONTINUE TO MONITOR PATIENT.
[2020-02-22] MEDS: *INSULIN REGULAR(HUMULIN R)HUM 100 UNIT/ML VIAL SQ PRN (22:34)
--- NOTE | 2020-02-22 23:48 | NUR ---
RN NOTE: Received report from JOSIE Emery for AVERY. Pt sleeping, easily arousable. No SOB or respiratory distress noted. No pain noted at this time. Will continue to monitor.
[2020-02-23] VITALS: BP 105/64
[2020-02-23] MEDS: VANCOMYCIN 1.25 GM in IV D5W 250 ML IV SCH ×3 (02:10→20:03)
[2020-02-23 04:00] VITALS: BP 115/66
[2020-02-23] MEDS: CEFEPIME 1 GM in IV D5W 50 ML IV SCH ×3 (04:03→19:55)
[2020-02-23 06:21] LABS: BASOPHILS # (AUTO) 0.1 /CMM (0.0-0.2); BASOPHILS % (AUTO) 0.5 % (0.0-2.0); EOSINOPHILS % (AUTO) 1.2 % (0.0-6.0); HEMATOCRIT 23 % (39-51); HEMOGLOBIN 7.4 g/dL (13.5-17.5); LYMPHOCYTES # (AUTO) 1.8 /CMM (0.8-4.8); LYMPHOCYTES % (AUTO) 9.1 % (20.0-44.0); MEAN CORPUSCULAR HGB CONC 33 g/dl (31.0-36.0); MEAN CORPUSCULAR VOLUME 86 fL (80-96); MONOCYTES # (AUTO) 2.8 /CMM (0.1-1.30); MONOCYTES % (AUTO) 14.6 % (2.0-12.0); NEUTROPHILS # (AUTO) 14.5 /CMM (1.8-8.9); NEUTROPHILS % (AUTO) 74.6 % (43.0-81.0); PLATELET COUNT (AUTO) 352 /CMM (150-450); RED BLOOD CELL COUNT(AUTO) 2.62 MIL/uL (4.5-6.0); WHITE BLOOD COUNT (AUTO) 19.4 K/uL (4.3-11.0)
--- NOTE | 2020-02-23 06:34 | NUR ---
RN CLOSING NOTES: Pt resting in bed, on isolation for positive Covid. A&Ox3 sometimes forgetful. SR/ST on tele monitor. On RA, sating WNL. No SOB or respiratory distress noted throughout shift. No acute changes noted throughout shift. LACHO midline patent and flushing. Dressing c/d/i. Safety measures in place. Will endorse to AM nurse for AVERY.
[2020-02-23 07:04] LABS: ALBUMIN 1.6 g/dL (3.4-5.0); BILIRUBIN,TOTAL 0.5 mg/dL (0.2-1.0); CALCIUM, SERUM 7.5 mg/dL (8.5-10.1); CREATININE 0.8 mg/dL (0.6-1.3); MAGNESIUM 1.5 mg/dL (1.8-2.4); PHOSPHORUS 1.8 mg/dL (2.5-4.9); POTASSIUM 3.3 mmol/L (3.5-5.1); TOTAL PROTEIN, SERUM 7.4 g/dL (6.4-8.2)
[2020-02-23] MEDS: BLOOD SUGAR DIAGNOSTIC 1 EACH STRIP IN SCH ×4 (07:54→21:01)
[2020-02-23 08:00] VITALS: BP_SYST 101; BP_SYST 102; BP_SYST 136; BP_DIAS 60; BP_DIAS 66; BP_DIAS 78
[2020-02-23] MEDS: PANTOPRAZOLE 40 MG TABLET.DR PO SCH ×2 (08:02→20:06)
[2020-02-23] MEDS: DABIGATRAN ETEXILATE MESYLATE 150 MG CAPSULE PO SCH ×2 (08:03→17:26)
[2020-02-23] MEDS: INSULIN REGULAR, HUMAN 100 UNIT/ML 3 ML VIAL SQ PRN ×3 (08:04→17:37)
[2020-02-23] MEDS ORDERED: POTASSIUM CHLORIDE 20 MEQ POWDER PACKET PO SCH (10:00)
--- NOTE | 2020-02-23 11:30 | NUR ---
PT at bedside, patient able to stand up and go to bathroom with no assistance. Gait is steady
[2020-02-23] MEDS: Magnesium 1GM/D5W 100ML PREMIX 100 ML IV SCH ×2 (11:35→14:58)
[2020-02-23 12:00] VITALS: BP 102/60
--- NOTE | 2020-02-23 12:36 | NUR ---
Acute restrain order d/c due to patient cooperative, compliant and not confused
[2020-02-23] MEDS ORDERED: K PHOS NEUTRAL 250 MG TABLET PO ONE (15:00)
[2020-02-23] MEDS: ACETAMINOPHEN 325 MG TABLET PO PRN ×2 (15:01→21:03)
[2020-02-23 16:00] VITALS: BP 110/67
--- NOTE | 2020-02-23 16:25 | NUR ---
changed dressing with wound care as ordered; cyanosis remains unimproved, wound clean , no redness or discharge noted.
--- NOTE | 2020-02-23 18:38 | NUR ---
Pt resting in bed, on droplet isolation for Covid-19. A&Ox3 with episodes forgetfulness. On tele monitor ST 105. On room air saturating 95%. No SOB or respiratory distress noted. No acute changes noted throughout shift. LACHO midline patent and flushing well. Dressing c/d/i, changed . Safety measures in place.Able to use bathroom. Will endorse to next nurse for AVERY.
[2020-02-23 20:00] VITALS: BP 121/67
--- NOTE | 2020-02-23 20:25 | NUR ---
TELE/RN OPENING NOTES RECEIVED PATIENT IN BED, AWAKE, ALERT, ABLE TO VERBALIZE NEEDS, ON ROOM AIR BREATHING EVEN AND UNLABORED, RIGHT ARM WITH DRESSING INTACT AND DRY, ABLE TO COOPERATE WITH CARE, IV ANTIBIOTIC VANCO BEING INFUSED., ABLE TO TOLERATE PO TABLET. BED LOCKED, CALL LIGHTS WITHIN REACH, WILL MONITOR.
--- NOTE | 2020-02-23 20:59 | NUR ---
TELE/RN NOTES PATIENT IN BED, REPORTED AND WAS ASK IF HE IS IN PAIN STATED HE HAS PAIN AND THAT HE WANTS SOME TYLENOL AND A JUICE. TO MONITOR FOR ANY CHANGES AND HYPERGLYCEMIA EPISODE.BLOOD SUGAR CHECK.
[2020-02-23] MEDS: INSULIN GLARGINE, 100 UNIT/ML CARTRIDGE SQ SCH (21:34)
[2020-02-23] MEDS: *INSULIN REGULAR(HUMULIN R)HUM 100 UNIT/ML VIAL SQ PRN (21:35)
--- NOTE | 2020-02-23 21:38 | NUR ---
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 UNABLE TO PROVIDE EDUCATION PATIENT REFUSAL STATED THAT HE HAS BEEN POKED MANY TIMES IN THE AM, DISCUSSED THE ELEVATED BLOOD SUGAR, PATIENT JUST IGNORED .
--- NOTE | 2020-02-23 21:46 | NUR ---
TELE/RN NOTES PATIENT OBSERVED MAKING SOUNDS, COUGHING AND WITH SOME DISCOMFORT, REFUSE TO HAVE ANYTHING BE GIVEN TO HIM. HE SAID LEAVE HIM ALONE.
[2020-02-24] VITALS (7 sets, daily range): BP systolic 98–130; BP diastolic 54–72
--- NOTE | 2020-02-24 00:28 | NUR ---
rREFUSE TO BE AWAKE AFTER 12 MIDNIGHT AND REFUSE TO HAVE HIS VITAL SIGNS CHECK AT THIS TIME.
[2020-02-24] MEDS: CEFEPIME 1 GM in IV D5W 50 ML IV SCH ×3 (03:02→19:51)
[2020-02-24] MEDS: VANCOMYCIN 1.25 GM in IV D5W 250 ML IV SCH ×3 (03:02→20:46)
--- NOTE | 2020-02-24 06:14 | NUR ---
108-1TELE/RN NOTES CLOSING NOTES PATIENT ABLE TO SLEEP DURING THE NIGHT AND REPORTED NOT TO DISTURB HIM AFTER 12MN. REFUSED INSULIN SLIDING SCALE AND INSULIN LANTUS, UNABLE TO ACKNOWLEDGE IMPORTANCE. MONITORING, BLOOD SUGAR ELEVATED ABOVE 350. MONITORED. WILL ENDORSE TO AM RN FOR AVERY. WILL ENDORSE TO AM RN FOR AVERY.
[2020-02-24 06:30] LABS: BASOPHILS # (AUTO) 0.2 /CMM (0.0-0.2); BASOPHILS % (AUTO) 0.7 % (0.0-2.0); EOSINOPHILS % (AUTO) 1.5 % (0.0-6.0); HEMATOCRIT 23 % (39-51); HEMOGLOBIN 7.5 g/dL (13.5-17.5); LYMPHOCYTES # (AUTO) 1.9 /CMM (0.8-4.8); LYMPHOCYTES % (AUTO) 9.3 % (20.0-44.0); MEAN CORPUSCULAR HGB CONC 32 g/dl (31.0-36.0); MEAN CORPUSCULAR VOLUME 86 fL (80-96); MONOCYTES # (AUTO) 1.9 /CMM (0.1-1.30); MONOCYTES % (AUTO) 9.4 % (2.0-12.0); NEUTROPHILS # (AUTO) 16.1 /CMM (1.8-8.9); NEUTROPHILS % (AUTO) 79.1 % (43.0-81.0); PLATELET COUNT (AUTO) 408 /CMM (150-450); RED BLOOD CELL COUNT(AUTO) 2.68 MIL/uL (4.5-6.0); WHITE BLOOD COUNT (AUTO) 20.3 K/uL (4.3-11.0)
[2020-02-24 06:46] LABS: CALCIUM, SERUM 7.4 mg/dL (8.5-10.1); CREATININE 0.8 mg/dL (0.6-1.3); MAGNESIUM 1.6 mg/dL (1.8-2.4); POTASSIUM 3.6 mmol/L (3.5-5.1)
--- NOTE | 2020-02-24 08:00 | NUR ---
TELE/RN OPENING NOTES RECEIVED PATIENT IN BED, AWAKE, ALERT, ABLE TO VERBALIZE NEEDS, ON ROOM AIR BREATHING EVEN AND UNLABORED, ON TELE ST HR 117. RIGHT ARM WITH DRESSING INTACT AND DRY, ABLE TO COOPERATE WITH CARE, ABLE TO TOLERATE PO TABLET. TOOK HIS MEDS WELL.BED LOCKED, CALL LIGHTS WITHIN REACH, WILL MONITOR.
[2020-02-24] MEDS: BLOOD SUGAR DIAGNOSTIC 1 EACH STRIP IN SCH ×4 (09:26→21:14)
[2020-02-24] MEDS: INSULIN REGULAR, HUMAN 100 UNIT/ML 3 ML VIAL SQ PRN ×3 (09:28→17:35)
[2020-02-24] MEDS: MAGNESIUM OXIDE 400 MG TABLET PO SCH ×2 (09:30→16:31)
[2020-02-24] MEDS: NEUTRA PHOS 1 POWD.PACKET PO SCH ×3 (09:30→16:31)
[2020-02-24] MEDS: PANTOPRAZOLE 40 MG TABLET.DR PO SCH ×2 (09:30→21:00)
[2020-02-24] MEDS: MORPHINE SULFATE INJ 2 MG/ML DISP.SYRIN IV PRN ×2 (09:38→18:31)
--- NOTE | 2020-02-24 10:19 | NUR ---
CLARIFIED WITH REGAN,RECORDS ASSISTANT REGARDING ADMINISTRATION OF PRADAXA AND HE STATED IT'S OK TO GIVE EVEN IF THE HGB IS 7.5 STILL TO ADMINISTER TO PREVENT BLOOD CLOTS.
[2020-02-24] MEDS: DABIGATRAN ETEXILATE MESYLATE 150 MG CAPSULE PO SCH ×2 (10:22→16:32)
--- NOTE | 2020-02-24 19:15 | NUR ---
PT WAS COOPERATIVE AND COMPLIANT WITH MEDS AND TX THROUGHOUT THE SHIFT. PAIN MANAGEMENT EFFECTIVE POST WOUND TX. RT ARM WOUND HAS NO S/S OF INFECTION OR FOUL DRAINAGE NOTED.
--- NOTE | 2020-02-24 19:30 | NUR ---
TOXICS PROGRAM OFFICER OPENING NOTES RECEIVED PATIENT RESTING IN BED COMFORTABLY; A/OX3 MOHAWK SPEAKING; ABLE TO MAKE NEEDS KNOWN; PATIENT TOLERATING ROOM AIR WELL; NO SOB NOTED; TELE MONITOR ATTACHED READS SINUS TACHY 120BPM; LACHO MIDLINE HL INTACT AND PATENT; FLUSHING WELL; ISOLATION PRECAUTIONS MAINTAINED; SAFETY PRECAUTIONS IMPLEMENTED; BED LOCKED IN LOW POSITION; SIDE RAILS X2; CALL LIGHT WITHIN REACH; WILL CONTINUE TO MONITOR
--- NOTE | 2020-02-24 20:03 | NUR ---
TALENT ACQUISITION COORDINATOR NOTES MAXIPIME ADMINISTERED PER MD ORDER; AWAITING VANCO TROUGH PRIOR TO ADMINISTRATION OF VANCO; LAB DRAWN AWAITING RESULTS
--- NOTE | 2020-02-24 20:30 | NUR ---
FAMILY PROTECTION SPECIALIST NOTES TEMPERATURE SLIGHTLY ELEVATED 99.3, PATIENT REPORTED TO BE FEELING WARM; COOLING MEASURES APPLIED; PATIENT REQUESTED FAN TO BE ON LOW; TYLENOL GIVEN PER MD ORDER; WILL CONT TO MONITOR
[2020-02-24] MEDS: ACETAMINOPHEN 325 MG TABLET PO PRN (21:00)
--- NOTE | 2020-02-24 21:00 | NUR ---
DIE TRIMMER NOTES VANCO TROUGH RESULTED: 19, VANCO ADMINISTERED ORDERED; WILL CONT TO MONITOR
[2020-02-24] MEDS: INSULIN GLARGINE, 100 UNIT/ML CARTRIDGE SQ SCH (21:14)
--- NOTE | 2020-02-24 22:00 | NUR ---
SPORTS ANCHOR NOTES PATIENT REFUSING INSULIN COVERAGE; BS 229MG/DL; CHARGE NURSE AWARE; RISK AND BENEFITS DISCUSSED AND REVIEWED WITH PATIENT; TO NO AVAIL, PATIENT CONTINUES TO REFUSE; WILL CONT TO MONITOR/ASSESS
--- NOTE | 2020-02-24 23:45 | NUR ---
FORMS BUILDER NOTES PATIENT CONSTANTLY SITTING UP IN BED AND WAKING UP FROM SLEEP OFTEN; PATIENT STATES HE FEELS UNCOMFORTABLE D/T RIGHT ARM PAIN; PATIENT VERBALIZED HE IS OKAY AND DOES NOT NEED ANYTHING; PATIENT SAID HE WILL CALL IF NEEDED; WILL CONT TO MONITOR PATIENT;
[2020-02-25] VITALS (7 sets, daily range): BP systolic 96–127; BP diastolic 54–98
[2020-02-25] MEDS: MORPHINE SULFATE INJ 2 MG/ML DISP.SYRIN IV PRN ×3 (00:30→16:22)
--- NOTE | 2020-02-25 00:42 | NUR ---
RN CVOR NOTES PATIENT COMPLAINT OF 10/10 RIGHT ARM PAIN; MORPHINE GIVEN PER MD ORDER; VITALS STABLE; BP: 106/54 HR: 107, WILL CONT TO MONITOR
[2020-02-25] MEDS: CEFEPIME 1 GM in IV D5W 50 ML IV SCH ×2 (03:10→12:21)
[2020-02-25] MEDS: VANCOMYCIN 1 GM in IV D5W 250 ML IV SCH ×3 (03:57→21:02)
--- NOTE | 2020-02-25 04:26 | NUR ---
ORDER PROCESSING MANAGER NOTES PATIENT COMPLIANT WITH IV ANTIBIOTICS; TOLERATING IVF WELL;
--- NOTE | 2020-02-25 06:29 | NUR ---
CRUDE TESTER NOTES PATIENT RESTING IN BED COMFORTABLY, A/OX3; BREATHING EVEN AND UNLABORED; PATIENT TOLERATED ROOM AIR THROUGHOUT SHIFT AT 97%; NO SOB NOTED; PATIENT ABLE TO MAKE NEEDS KNOWN; TELE MONITOR READS SINUS TACHY 111BPM; LACHO MIDLINE INTACT AND PATENT; FLUSHING WELL, NO S/S OF REDNESS OR INFILTRATION NOTED; ALL NEEDS RENDERED; ISOLATION PRECAUTIONS MAINTAINED; SAFETY PRECAUTIONS IMPLEMENTED; BED LOCKED IN LOW POSITION; SIDE RAILS X2; CALL LIGHT WITHIN REACH, WILL ENDORSE AVERY TO ONCOMING NURSE
--- NOTE | 2020-02-25 07:30 | NUR ---
LOG MARKER OPENING NOTE PATIENT IN BED RESTING COMFORTABLY. PATIENT IN NO ACUTE DISTRESS. NO SOB NOTED. PATIENT BREATHING IS EVEN AND UNLABORED. PATIENT ON CARDIAC MONITORING READING SINUS TACHYCARDIA HR 110. PATIENT BED ALARM IS ON. SAFETY PRECAUTIONS IN PLACE. PATIENT BED IS LOCKED AND IN LOWEST POSITION. CALL LIGHT WITHIN REACH. WILL CONTINUE TO MONITOR.
[2020-02-25] MEDS: BLOOD SUGAR DIAGNOSTIC 1 EACH STRIP IN SCH ×4 (07:50→21:02)
[2020-02-25] MEDS: INSULIN REGULAR, HUMAN 100 UNIT/ML 3 ML VIAL SQ PRN ×3 (07:52→16:35)
[2020-02-25 07:58] LABS: BASOPHILS # (AUTO) 0.2 /CMM (0.0-0.2); BASOPHILS % (AUTO) 0.8 % (0.0-2.0); EOSINOPHILS % (AUTO) 1.2 % (0.0-6.0); HEMATOCRIT 22 % (39-51); HEMOGLOBIN 7.2 g/dL (13.5-17.5); LYMPHOCYTES # (AUTO) 1.6 /CMM (0.8-4.8); MEAN CORPUSCULAR HGB CONC 32 g/dl (31.0-36.0); MEAN CORPUSCULAR VOLUME 87 fL (80-96); MONOCYTES # (AUTO) 1.7 /CMM (0.1-1.30); MONOCYTES % (AUTO) 8.6 % (2.0-12.0); NEUTROPHILS # (AUTO) 15.9 /CMM (1.8-8.9); NEUTROPHILS % (AUTO) 81.4 % (43.0-81.0); PLATELET COUNT (AUTO) 409 /CMM (150-450); RED BLOOD CELL COUNT(AUTO) 2.57 MIL/uL (4.5-6.0); WHITE BLOOD COUNT (AUTO) 19.6 K/uL (4.3-11.0)
[2020-02-25 08:11] LABS: ALBUMIN 1.6 g/dL (3.4-5.0); BILIRUBIN,TOTAL 0.6 mg/dL (0.2-1.0); CALCIUM, SERUM 7.8 mg/dL (8.5-10.1); CREATININE 0.7 mg/dL (0.6-1.3); MAGNESIUM 1.5 mg/dL (1.8-2.4); PHOSPHORUS 2.1 mg/dL (2.5-4.9); POTASSIUM 3.9 mmol/L (3.5-5.1); TOTAL PROTEIN, SERUM 8.1 g/dL (6.4-8.2)
[2020-02-25] MEDS: MAGNESIUM OXIDE 400 MG TABLET PO SCH ×2 (08:35→16:22)
[2020-02-25] MEDS: PANTOPRAZOLE 40 MG TABLET.DR PO SCH ×2 (08:35→21:02)
[2020-02-25] MEDS: DABIGATRAN ETEXILATE MESYLATE 150 MG CAPSULE PO SCH ×2 (08:35→16:23)
[2020-02-25] MEDS: Magnesium 1GM/D5W 100ML PREMIX 100 ML IV SCH ×2 (10:09→11:20)
[2020-02-25] MEDS: NEUTRA PHOS 1 POWD.PACKET PO SCH ×2 (10:10→17:00)
--- NOTE | 2020-02-25 13:03 | NUR ---
DYE MACHINE TENDER NOTE ATTEMPTED TO CHANGE PATIENT WOUND DRESSING. PATIENT REFUSED TO HAVE WOUND TREATMENT PERFORMED. PATIENT STATES " I DONT WANT YOU TO CHANGE ANYTHING RIGHT NOW, THEY JUST CHANGED EVERYTHING. MAYBE TRY LATER OR TOMORROW WHEN IM IN A BETTER MOOD". EDUCATED RISKS VS BENEFITS AND IMPORTANCE OF CHANGING WOUND DRESSING. PATIENT CONTINUED TO REFUSE.
--- NOTE | 2020-02-25 14:12 | NUR ---
PER PRIMARY RN PATIENT PULLED IV OUT ,PRIMARY RN NOTIFIED NEGRATE WITH ORDERS TO D/C TELE AND OK TO REINSERT MIDLINE.NURSING SUP MADE AWARE.REEDUCATED PATIENT NOT TO PULL IV.
--- NOTE | 2020-02-25 14:14 | NUR ---
SUPERVISOR CONTINGENTS NOTE PATIENT REMOVED IV PORTS FROM MIDLINE, AND NO LONGER VIABLE AND PATENT. SPOKE WITH MACY BERGERON AND PER MD ORDER OKAY FOR MIDLINE REINSERTION. PER MD PATIENT CAN BE MED SURGE AND NO LONGER ON CARDIAC MONITORING AND MAINTAIN ISOLATION PRECAUTIONS.
[2020-02-25] MEDS: ACETAMINOPHEN 325 MG TABLET PO PRN (16:59)
--- NOTE | 2020-02-25 17:14 | NUR ---
MS RN NOTE PATIENT WITH TEMPERATURE 100.1, ADMINISTERED TYLENOL PRN ORDERED AND IMPLEMENTED COOLING MEASURES.
--- NOTE | 2020-02-25 17:50 | NUR ---
MS RN NOTE PATIENT TEMPERATURE AT THIS TIME IS 99.0 F. PATIENT ALLOWED FOR WOUND CARE TO BE PROVIDED TO RIGHT FOREARM.
--- NOTE | 2020-02-25 18:28 | NUR ---
MS RN OPENING NOTE PATIENT IN BED RESTING COMFORTABLY. PATIENT IN NO ACUTE DISTRESS. NO SOB NOTED. PATIENT BREATHING IS EVEN AND UNLABORED. PATIENT BREATHING ON ROOM AIR SATURATING >95% SPO2. PATIENT NEEDS AND CONCERNS ADDRESSED. LEFT UPPER ARM MIDLINE PATENT AND INTACT. EDUCATED PATIENT NOT TO PULL OUT. PATIENT WITH NO BOWEL MOVEMENT DURING MY SHIFT, UNABLE TO COLLECT STOOL AT THIS TIME FOR OCCULT TESTING. WOUND CARE PROVIDED ORDERED. NO ACTIVE BLEEDING NOTED. DRESSING DRY AND INTACT. PATIENT KEPT CLEAN, DRY AND COMFORTABLE THROUGHOUT SHIFT. PATIENT BED ALARM IS ON. SAFETY PRECAUTIONS IN PLACE. PATIENT BED IS LOCKED AND IN LOWEST POSITION. CALL LIGHT WITHIN REACH. WILL ENDORSE CARE TO PM SHIFT FOR AVERY. Addendum: 02/25/20 at 1838 by DEMARCUS PERALTA RN MS RN CLOSING NOTE PATIENT IN BED RESTING COMFORTABLY. PATIENT IN NO ACUTE DISTRESS. NO SOB NOTED. PATIENT BREATHING IS EVEN AND UNLABORED. PATIENT BREATHING ON ROOM AIR SATURATING >95% SPO2. PATIENT NEEDS AND CONCERNS ADDRESSED. LEFT UPPER ARM MIDLINE PATENT AND INTACT. EDUCATED PATIENT NOT TO PULL OUT. PATIENT WITH NO BOWEL MOVEMENT DURING MY SHIFT, UNABLE TO COLLECT STOOL AT THIS TIME FOR OCCULT TESTING. WOUND CARE PROVIDED ORDERED. NO ACTIVE BLEEDING NOTED. DRESSING DRY AND INTACT. PATIENT KEPT CLEAN, DRY AND COMFORTABLE THROUGHOUT SHIFT. PATIENT BED ALARM IS ON. SAFETY PRECAUTIONS IN PLACE. PATIENT BED IS LOCKED AND IN LOWEST POSITION. CALL LIGHT WITHIN REACH. WILL ENDORSE CARE TO PM SHIFT FOR AVERY.
[2020-02-25] MEDS: MEROPENEM 1 G in IV NS 0.9% 100 ML IV SCH (19:53)
[2020-02-25] MEDS: *INSULIN REGULAR(HUMULIN R)HUM 100 UNIT/ML VIAL SQ PRN (21:31)
[2020-02-25] MEDS: INSULIN GLARGINE, 100 UNIT/ML CARTRIDGE SQ SCH (21:31)
--- NOTE | 2020-02-25 21:59 | NUR ---
END OF SHIFT REPORT: RECEIVED REPORT FROM DEMARCUS GALINDO AT 1905. PT COVID POSITIVE, ON ISOLATION, PPE UTILIZED. MET WITH PT AT BEDSIDE. A/O X4, SPO2 STABLE ON RA. S/P RIGHT FA FASCIOTOMY ON 02/[address] ROY, DRESSING CHANGE PERFORMED TODAY, CURRENTLY DRESSING IS C/D/I, NO ACTIVE BLEEDING NOTED. UPON ASSESSMENT, RIGHT HAND COLD TO TOUCH, PT CLAIMED HE'S UNABLE TO MOVE THE FINGERS, NO CAPILLARY REFILL NOTED, ON 5 FINGERS, BLUISH BLACK TO ASHEN COLORED HAND, NO SENSATION PER PT. PT ON SOFT DIET, ABLE TO TOLERATE PO INTAKE WELL. HAS LACHO MIDLINE PATENT AND FLUSHING WELL, WITH IV MERREM ADMINISTERED AT 1999, THEN RIGHT NOW IV VANCO CURRENTLY INFUSING, ABOUT TO FINISH. FINGERSTICK BLOOD GLUCOSE CHECK PERFORMED AND RESULT OBTAINED IS 307, 8UNITS OF INSULIN ADMINISTERED PER SLIDING SCALE. PT FINISH HIS DINNER. PT ABLE TO USE URINAL. VS TAKEN AND RECORDED. COMPLETE LINEN CHANGE PROVIDED BY AIRLINE TICKET AGENT. SAFETY PRECAUTIONS FOR FALL INITIATED, CALL LIGHT IN REACH, ENDORSED TO JOSIE CONCEPCION FOR CONTINUITY OF CARE.
--- NOTE | 2020-02-25 22:00 | NUR ---
RN NOTES RECEIVED PT, FROM ANOTHER NURSE A/OX3, NOT IN DISTRESS, NO PAIN NOTED, CALL LIGHT WITHIN REACH, BED IN LOCKED POSITION, [id number] CONTINUE TO MONITOR
[2020-02-26] VITALS: BP_SYST 117; BP_SYST 96; BP_DIAS 56; BP_DIAS 70
--- NOTE | 2020-02-26 00:05 | NUR ---
RN NOTES COMPLAINED OF PAIN ON HIS RIGHT ARM- MORPHINE 4MG IV GIVEN ORDERED, V/S STABLE, PT. HAS TEMP OF 101- TYLENOL 650MG PO GIVEN ORDERED
[2020-02-26] MEDS: ACETAMINOPHEN 325 MG TABLET PO PRN ×2 (00:07→20:09)
[2020-02-26] MEDS: MORPHINE SULFATE INJ 2 MG/ML DISP.SYRIN IV PRN ×6 (00:07→20:10)
[2020-02-26] MEDS: MEROPENEM 1 G in IV NS 0.9% 100 ML IV SCH ×3 (03:56→20:03)
[2020-02-26 04:00] VITALS: BP 114/58
[2020-02-26] MEDS: VANCOMYCIN 1 GM in IV D5W 250 ML IV SCH ×3 (04:39→20:40)
--- NOTE | 2020-02-26 06:08 | NUR ---
RN NOTES COMPLAINED OF RIGHT ARM PAIN- MORPHINE 4 MG IV GIVEN ORDERED, V/S STABLE
--- NOTE | 2020-02-26 06:17 | NUR ---
RN NOTES AWAKE, MORNING CARE RENDERED, NOT IN DISTRESS, [id number], PT. NEEDS ATTENDED
[2020-02-26 07:13] LABS: BASOPHILS # (AUTO) 0.1 /CMM (0.0-0.2); BASOPHILS % (AUTO) 0.6 % (0.0-2.0); EOSINOPHILS % (AUTO) 1.9 % (0.0-6.0); HEMATOCRIT 23 % (39-51); HEMOGLOBIN 7.3 g/dL (13.5-17.5); LYMPHOCYTES # (AUTO) 2.5 /CMM (0.8-4.8); LYMPHOCYTES % (AUTO) 14.1 % (20.0-44.0); MEAN CORPUSCULAR HGB CONC 32 g/dl (31.0-36.0); MEAN CORPUSCULAR VOLUME 86 fL (80-96); MONOCYTES # (AUTO) 1.7 /CMM (0.1-1.30); MONOCYTES % (AUTO) 9.5 % (2.0-12.0); NEUTROPHILS # (AUTO) 13.3 /CMM (1.8-8.9); NEUTROPHILS % (AUTO) 73.9 % (43.0-81.0); PLATELET COUNT (AUTO) 471 /CMM (150-450); RED BLOOD CELL COUNT(AUTO) 2.64 MIL/uL (4.5-6.0); WHITE BLOOD COUNT (AUTO) 17.9 K/uL (4.3-11.0)
[2020-02-26] MEDS: BLOOD SUGAR DIAGNOSTIC 1 EACH STRIP IN SCH ×4 (07:30→21:00)
[2020-02-26 07:31] LABS: CREATININE 0.8 mg/dL (0.6-1.3); POTASSIUM 4.1 mmol/L (3.5-5.1)
[2020-02-26] MEDS: INSULIN REGULAR, HUMAN 100 UNIT/ML 3 ML VIAL SQ PRN ×3 (07:56→17:33)
[2020-02-26 08:00] VITALS: BP_SYST 104; BP_SYST 109; BP_DIAS 70
--- NOTE | 2020-02-26 08:00 | NUR ---
RN OPENING NOTES PT IS RESTING COMFORTABLY IN THE BED.PT A/A/OX3. THERE IS NO S/S OF DISTRESS, PT STABLE,PT HAS UNLABORED BREATHING.PT IS RA SATING 93%. PT ON CARDIAC MONITORING SHOEING HR 104 ST. PT HAS RA DRESSING WHICH IS INTACT AND DRY, NO DRAINAGE. PT HAS LACHO MIDLINE IV SITE INTACT, PATENT, DRESSING DRY, SAFETY MEASURES IMPLEMENTED BED AT LOWEST POSITION AND LOCKED, CALL LIGHT WITHIN REACH, SIDE RAILS X2 UP. WILL CONTINUE TO MONITOR FOR NAY ACUTE CHANGES.
[2020-02-26] MEDS: DABIGATRAN ETEXILATE MESYLATE 150 MG CAPSULE PO SCH ×2 (08:41→17:24)
[2020-02-26] MEDS: PANTOPRAZOLE 40 MG TABLET.DR PO SCH ×2 (08:41→20:09)
--- NOTE | 2020-02-26 09:40 | NUR ---
RN NOTES PT HAS RA PAIN 10/10,BP IS 109/70, O2 SAT 93 RR 20, SPOKE TO RN/PEANUT VENDOR CHELSEA VELAZQUEZ AND CONFIRMED 4 MG MORPHINE IS OK TO GIVE. WILL CONTINUE TO MONITOR.
--- NOTE | 2020-02-26 10:41 | NUR ---
RN NOTES ADMINISTERED MORPHINE SULFATE AT 1011 . I WAS GOING TO REASSESS MEDICATION BUT INSTEAD, I ACCIDENTLY PRESSED ADMINISTER MED AND SAVED, IT APPEARS LIKE I ADMINISTERED MEDICATION TWICE. I INFORMED PHARMACY, PHARMACY SUGGESTED TO UNDO IT, 1011 AND 1041 WAS UNDONE, NOW IT APPEARS, MEDICATION WAS NOT ADMINISTERED AT ALL. I PULLED OUT FROM OMNICELL 2 VIAL OF MORHINE SULFATE 2 MG/1 ML EACH. BEFORE DISPENSING THERE WERE 9 AND AFTER 7 LEFT. CHARGE NURSE MALINA MADE AWARE AND ADVISED TO DOCUMENT WHAT HAPPENED.
--- NOTE | 2020-02-26 11:43 | NUR ---
RN NOTES PT REFUSES DRESING CHANGE OF RA DUE PAIN.
[2020-02-26 12:00] VITALS: BP_SYST 124; BP_DIAS 59; BP_DIAS 69
[2020-02-26 16:00] VITALS: BP 128/76
--- NOTE | 2020-02-26 18:24 | NUR ---
RN CLOSING NOTES PT IS LAYING DOWN IN THE BED STILL C/O PAIN, PT STATES PAIN 8/10 , PAIN MANAGEMENT DONE DURING MY SHIFT MORHIN SULFATE GIVEN Q4H. TELE MONITOR SHOWING HR 122 ST D/T PAIN PT IS RESTLESS AND MOVING IN THE BED, BUT PT IS STABLE. CHELSEA BERGERON IS AWARE. O2 SAT IS 96 RM. SAFETY MEASURES IMPLEMENTED BED AT LOWEST POSITION,LOCKED CALL LIGHT WITHIN REACH, SIDE RAILS UPX2. WILL CONTINUE TO MONITOR AND ENDORSE TO INCOMING SHIFT
--- NOTE | 2020-02-26 19:40 | NUR ---
TRAFFIC DIVISION COMMANDING OFFICER NOTES, PATIENT IS SITTING ON THE BED, A/O X3, BREATHING EVEN AND UNLABORED, NO SOB/ACUTE DISTRESS NOTED AT THIS TIME, SINUS TACHY ON TELE MONITORING WITH HR 120S AT THIS TIME, RIGHT HAND DRESSING IN PLACED INTACT, NO BLEEDING NOTED, LACHO MIDLINE IN PLACED IV SITE PATENT AND INTACT, ALL SAFETY MEASURES IMPLEMENTED BED LOCKED AND LOWEST POSITION, CALL LIGHT WITHIN REACH, SIDE RAILS X2 UP, WILL CONTINUE TO MONITOR CLOSELY.
[2020-02-26 20:00] VITALS: BP 116/74
--- NOTE | 2020-02-26 20:05 | NUR ---
RN NOTES, PATIENT C/O PAIN IN RIGHT HAND, MEDICATION FOR PAIN ADMINISTERED ORDERED, PULSES PRESENT, WELL TREATMENT FOR RIGHT HAND AND PICTURES DONE.
[2020-02-26] MEDS: INSULIN GLARGINE, 100 UNIT/ML CARTRIDGE SQ SCH (21:02)
[2020-02-26] MEDS: *INSULIN REGULAR(HUMULIN R)HUM 100 UNIT/ML VIAL SQ PRN (21:03)
[2020-02-27] VITALS: BP 103/50
[2020-02-27] MEDS: MORPHINE SULFATE INJ 2 MG/ML DISP.SYRIN IV PRN ×4 (02:05→23:41)
[2020-02-27] MEDS: MEROPENEM 1 G in IV NS 0.9% 100 ML IV SCH ×3 (03:15→20:20)
[2020-02-27] MEDS: VANCOMYCIN 1 GM in IV D5W 250 ML IV SCH ×3 (03:55→21:05)
[2020-02-27 04:00] VITALS: BP 98/45
[2020-02-27 06:26] LABS: BASOPHILS # (AUTO) 0.1 /CMM (0.0-0.2); BASOPHILS % (AUTO) 0.7 % (0.0-2.0); EOSINOPHILS % (AUTO) 2.7 % (0.0-6.0); HEMATOCRIT 22 % (39-51); LYMPHOCYTES # (AUTO) 1.7 /CMM (0.8-4.8); LYMPHOCYTES % (AUTO) 12.2 % (20.0-44.0); MEAN CORPUSCULAR HGB CONC 32 g/dl (31.0-36.0); MEAN CORPUSCULAR VOLUME 86 fL (80-96); MONOCYTES # (AUTO) 1.4 /CMM (0.1-1.30); MONOCYTES % (AUTO) 10.4 % (2.0-12.0); NEUTROPHILS # (AUTO) 10.1 /CMM (1.8-8.9); PLATELET COUNT (AUTO) 512 /CMM (150-450); RED BLOOD CELL COUNT(AUTO) 2.52 MIL/uL (4.5-6.0); WHITE BLOOD COUNT (AUTO) 13.7 K/uL (4.3-11.0)
[2020-02-27 06:36] LABS: CALCIUM, SERUM 7.8 mg/dL (8.5-10.1); CREATININE 0.8 mg/dL (0.6-1.3); POTASSIUM 3.9 mmol/L (3.5-5.1)
--- NOTE | 2020-02-27 07:20 | NUR ---
HOTEL MAINTENANCE TECHNICIAN OPENING NOTE Received patient awake sitting in bed no signs of distress. On RA tolerating well. Patient is AO x3. Tele reading ST 109 uncontrolled A-fib. Noted with R arm kerlix dressing. Intact and with signs of darkened skin. Patient has LACHO midline. Safety measures implemented. Call light within reach. Bed locked and on lowest position. Siderails up x2. Will cont to monitor.
[2020-02-27 07:25] LABS: D-DIMER 2.5 mg/L(FEU (0.17-0.50)
--- NOTE | 2020-02-27 07:38 | NUR ---
RN NOTES, MO SIGNIFICANT CHANGE IN CONDITION DURING NIGHT, NO SOB/ACUTE DISTRESS, ENDORSED TO DONNELL RN FOR AVERY.
[2020-02-27 08:00] VITALS: BP_SYST 133; BP_DIAS 96; BP_DIAS 98
[2020-02-27] MEDS: PANTOPRAZOLE 40 MG TABLET.DR PO SCH ×2 (08:19→21:51)
[2020-02-27] MEDS: DABIGATRAN ETEXILATE MESYLATE 150 MG CAPSULE PO SCH ×2 (08:20→16:49)
--- NOTE | 2020-02-27 08:20 | NUR ---
ELECTRONIC DRAFTER NOTE Informed MD about hgb 7.0 okay to give Pradaxa
[2020-02-27] MEDS: BLOOD SUGAR DIAGNOSTIC 1 EACH STRIP IN SCH ×4 (08:52→21:52)
[2020-02-27] MEDS: INSULIN REGULAR, HUMAN 100 UNIT/ML 3 ML VIAL SQ PRN ×3 (08:53→17:11)
[2020-02-27 10:18] LABS: BAND % (MANUAL) 1 % (0.0-5.0); EOSINOPHILS % (MANUAL) 5 % (0-4); LYMPHOCYTES % (MANUAL) 10 % (16-48); MONOCYTES % (MANUAL) 12 % (0-11.0); NEUTROPHILS % (MANUAL) 72 (42-76)
--- NOTE | 2020-02-27 10:53 | NUR ---
VISUAL COORDINATOR NOTE Lab called for Fibrinogen 798. Informed Dr. Myafield with no new orders.
[2020-02-27 12:00] VITALS: BP_SYST 119; BP_SYST 133; BP_DIAS 57; BP_DIAS 96
--- NOTE | 2020-02-27 13:11 | NUR ---
Social Service Note: SW received handoff for follow up on this pt who is 54 years old and is homeless. SW spoke to the pts nurse RN Erin who stated that the pt is more alert than when he was first admitted. She stated that the pt is positive for COVID and therefore the SW would have to call in. SW called the pt multiple times but the pt would not answer the phone. SW was told that the pt is resistant to care and uncooperative. SW will follow up.
--- NOTE | 2020-02-27 13:40 | NUR ---
Scrap Baler Note: Pt was not answering his phone so SW decided to meet with the pt outside of his room through the tarp covering as he is COVID Positive. Pt refused to talk to the SW and so the SW stated that she will make another attempt. As for now, the SW placed homeless resources in the pts chart under the Care tab.
[2020-02-27 16:00] VITALS: BP 134/58
--- NOTE | 2020-02-27 18:54 | NUR ---
NUTRITION PARTNER CLOSING NOTE Patient in bed asleep appears calm and relaxed. No signs of distress. On RA tolerating well. Patient has non-productive cough throughout the day. Patient is AOx4. Tele reading 90-100 bpm. LACHO midline in place and patent. Has dressing intact on R arm seen by Dr. Mayfield. Insulin given as ordered. Maintained controlled blood sugar. All due meds given. All needs met. Kept clean and comfortable. Vital signs within normal limits. Safety measures reinforced. Call light within reached. Bed locked and on lowest position. Will endorse to soa architect nurse for melinda.
--- NOTE | 2020-02-27 19:45 | NUR ---
INSTRUMENTATION TECHNOLOGIST OPENING NOTES: RECEIVED PT A/OX4 IN BED RESTING COMFORTABLY. PATIENT IN NO S/SX OF ACUTE DISTRESS AT THIS TIME. NO SOB NOTED. PATIENT'S BREATHING IS EVEN AND UNLABORED. PATIENT IS ON ROOM AIR, TOLERATING WELL. PATIENT'S TELE READING SINUS RHYTHM HR IS @105. NOTED IV SITE ON LEFT UPPER ARM; PATENT IN INTACT. PATIENT WITH R ARM KERLIX DRESSING; INTACT AND WITH SIGNS OF DARKENED SKIN. SAFETY MEASURES HAVE BEEN PROVIDED AND IMPLEMENTED. PATIENT BED ALARM IS ON. HEAD OF BED ELEVATED. BED IS LOCKED, IN LOWEST POSITION AND SIDE RAILS UP. CALL LIGHT WITHIN REACH OF THE PATIENT. WILL CONTINUE TO MONITOR AND REASSESS FOR ANY CHANGES.
[2020-02-27 20:00] VITALS: BP 130/71
[2020-02-27] MEDS: INSULIN GLARGINE, 100 UNIT/ML CARTRIDGE SQ SCH ×2 (21:53→22:15)
[2020-02-27] MEDS: *INSULIN REGULAR(HUMULIN R)HUM 100 UNIT/ML VIAL SQ PRN ×2 (21:59→22:10)
[2020-02-28] VITALS (12 sets, daily range): BP systolic 106–145; BP diastolic 54–88
[2020-02-28] MEDS: MEROPENEM 1 G in IV NS 0.9% 100 ML IV SCH ×3 (03:36→20:05)
[2020-02-28] MEDS: VANCOMYCIN 1 GM in IV D5W 250 ML IV SCH ×3 (03:37→20:32)
[2020-02-28] MEDS: MORPHINE SULFATE INJ 2 MG/ML DISP.SYRIN IV PRN ×3 (04:28→20:33)
[2020-02-28 06:13] LABS: BASOPHILS # (AUTO) 0.1 /CMM (0.0-0.2); BASOPHILS % (AUTO) 0.7 % (0.0-2.0); EOSINOPHILS % (AUTO) 3.4 % (0.0-6.0); HEMATOCRIT 21 % (39-51); LYMPHOCYTES # (AUTO) 2.1 /CMM (0.8-4.8); LYMPHOCYTES % (AUTO) 16.6 % (20.0-44.0); MEAN CORPUSCULAR HGB CONC 32 g/dl (31.0-36.0); MEAN CORPUSCULAR VOLUME 85 fL (80-96); MONOCYTES # (AUTO) 1.3 /CMM (0.1-1.30); MONOCYTES % (AUTO) 10.8 % (2.0-12.0); NEUTROPHILS # (AUTO) 8.4 /CMM (1.8-8.9); NEUTROPHILS % (AUTO) 68.5 % (43.0-81.0); PLATELET COUNT (AUTO) 522 /CMM (150-450); RED BLOOD CELL COUNT(AUTO) 2.46 MIL/uL (4.5-6.0); WHITE BLOOD COUNT (AUTO) 12.3 K/uL (4.3-11.0)
[2020-02-28 06:24] LABS: CALCIUM, SERUM 7.9 mg/dL (8.5-10.1); CREATININE 0.8 mg/dL (0.6-1.3)
[2020-02-28 06:28] LABS: HEMOGLOBIN 6.8 g/dL (13.5-17.5)
--- NOTE | 2020-02-28 06:32 | NUR ---
RN NOTES, INFORMED KEYUR THAT THIS MORNING CRITICAL LEVEL FOR HEMOGLOBIN 6.8, AND HE REPLIED WITH NEW ORDER TO TRANSFUSE 1 UNIT RBC, NOTED AND CARRIED OUT, PRBC AND TYPE AND SCREEN ORDERED, NO SIGNIFICANT CHANGE IN CONDITION DURING THE NIGHT, WILL ENDORSE CONTINUITY OF CARE TO ONCOMING NURSE.
[2020-02-28 07:31] LABS: EOSINOPHILS % (MANUAL) 1 % (0-4); LYMPHOCYTES % (MANUAL) 16 % (16-48); MONOCYTES % (MANUAL) 12 % (0-11.0); NEUTROPHILS % (MANUAL) 71 (42-76)
--- NOTE | 2020-02-28 08:00 | NUR ---
TRAFFIC AGENT NOTE PATIENT IN BED, ON RA NO SOB NOTED AT THIS TIME, ON TELE, BED IN LOWEST AND LOCKED POSITION , LT UPPER ARM MID LINE IN PLACE, WILL CONT TO MONITOR, PLAN OF CARE DISCUSSED WITH PATIENT
[2020-02-28] MEDS: PANTOPRAZOLE 40 MG TABLET.DR PO SCH ×2 (08:21→20:33)
[2020-02-28] MEDS: INSULIN REGULAR, HUMAN 100 UNIT/ML 3 ML VIAL SQ PRN ×4 (08:33→22:28)
[2020-02-28] MEDS: BLOOD SUGAR DIAGNOSTIC 1 EACH STRIP IN SCH ×4 (08:46→22:19)
[2020-02-28] MEDS: DABIGATRAN ETEXILATE MESYLATE 150 MG CAPSULE PO SCH ×2 (09:00→16:46)
--- NOTE | 2020-02-28 10:00 | NUR ---
VIJI GALINDO NOTE TODAY 6.8 OK TO HOLD CANDIDO CANTU AWARE Addendum: 02/28/20 at 1845 by EVELIO SMITH RN Ricardo gh 6.8
--- NOTE | 2020-02-28 12:32 | NUR ---
PAINTER ROUGH NOTE C\O SEVERE RT ARM PAIN MORPHINE 4 MG IVP GIVEN ORDERED
--- NOTE | 2020-02-28 14:19 | NUR ---
SENIOR QA TESTER NOTE SPOKE WITH MACY CANTU AWARE RT ARM WOUND OK TO GET WOUND CX ,ALSO AWARE THAT BLOOD TRANSFUSION 1 UNIT PRBC COMPLETED NO ACTIVE BLEEDING NOTED
--- NOTE | 2020-02-28 16:00 | NUR ---
JOB PLACEMENT COUNSELOR NOTE PER MACY VELAZQUEZ OK TO GIVE PRADAXA AWARE THAT HG 6.8 WAS BEFORE , WILL F\U
--- NOTE | 2020-02-28 18:16 | NUR ---
SUPERVISOR HOUSECLEANER NOTE RESTING COMFORTABLY ,ALL NEEDS ATTENDED, NOT IN DISTRESS
--- NOTE | 2020-02-28 18:32 | NUR ---
ELECTRIC SCREW DRIVER OPERATOR NOTE CBC DROWN BY PRESS BOX CUSTODIAN
[2020-02-28 19:32] LABS: HEMOGLOBIN 7.9 g/dL (13.5-17.5)
[2020-02-28] MEDS ORDERED: INSULIN GLARGINE, 100 UNIT/ML CARTRIDGE SQ SCH (22:00)
[2020-02-29] VITALS: BP 138/76
[2020-02-29] MEDS: MEROPENEM 1 G in IV NS 0.9% 100 ML IV SCH ×3 (03:36→19:40)
[2020-02-29] MEDS: MORPHINE SULFATE INJ 2 MG/ML DISP.SYRIN IV PRN ×4 (03:46→17:32)
[2020-02-29 04:00] VITALS: BP 125/76
[2020-02-29] MEDS: VANCOMYCIN 1 GM in IV D5W 250 ML IV SCH ×3 (04:00→20:34)
[2020-02-29 06:35] LABS: BASOPHILS # (AUTO) 0.1 /CMM (0.0-0.2); EOSINOPHILS % (AUTO) 4.7 % (0.0-6.0); HEMATOCRIT 23 % (39-51); HEMOGLOBIN 7.5 g/dL (13.5-17.5); LYMPHOCYTES # (AUTO) 1.6 /CMM (0.8-4.8); LYMPHOCYTES % (AUTO) 14.4 % (20.0-44.0); MEAN CORPUSCULAR HGB CONC 33 g/dl (31.0-36.0); MEAN CORPUSCULAR VOLUME 85 fL (80-96); MONOCYTES # (AUTO) 1.1 /CMM (0.1-1.30); MONOCYTES % (AUTO) 10.2 % (2.0-12.0); NEUTROPHILS # (AUTO) 7.8 /CMM (1.8-8.9); NEUTROPHILS % (AUTO) 69.7 % (43.0-81.0); PLATELET COUNT (AUTO) 535 /CMM (150-450); WHITE BLOOD COUNT (AUTO) 11.2 K/uL (4.3-11.0)
[2020-02-29 06:40] LABS: CREATININE 0.7 mg/dL (0.6-1.3); POTASSIUM 3.7 mmol/L (3.5-5.1)
--- NOTE | 2020-02-29 07:30 | NUR ---
Tele/RN note Received patient AO x 2-3, forgetful occasionally. respiratory even and unlabored in room air, no sob or distress observed. C/O right upper arm and given morphine 4mg IV push. Skin is warm to touch, kept dry and intact midline. Keep low position of the bed with locked wheel and elevated head of the bed. Call light within reach, will continue to monitor.
[2020-02-29] MEDS: BLOOD SUGAR DIAGNOSTIC 1 EACH STRIP IN SCH ×4 (07:58→22:39)
[2020-02-29 08:00] VITALS: BP_SYST 130; BP_SYST 132; BP_DIAS 77
[2020-02-29] MEDS: PANTOPRAZOLE 40 MG TABLET.DR PO SCH ×2 (08:14→22:33)
[2020-02-29] MEDS: DABIGATRAN ETEXILATE MESYLATE 150 MG CAPSULE PO SCH (08:16)
[2020-02-29] MEDS: INSULIN REGULAR, HUMAN 100 UNIT/ML 3 ML VIAL SQ PRN ×4 (08:18→22:46)
--- NOTE | 2020-02-29 10:40 | NUR ---
Patient transferred 3W room 320-1, given report Nancy/RN.
--- NOTE | 2020-02-29 11:00 | NUR ---
ms rn received a new trasfer form 108.awake,oriented x2-3 not in any form of distress, respirations even and unlabored,no sob noted, lungs are diminished, abdomen soft,positive bowel sounds,denies pain at this time,all needs a
--- NOTE | 2020-02-29 12:10 | NUR ---
ms rn on bed, no distress noted.
[2020-02-29 13:40] LABS: HEMOGLOBIN 8.2 g/dL (13.5-17.5)
[2020-02-29 16:00] VITALS: BP 122/69
--- NOTE | 2020-02-29 18:00 | NUR ---
ms rn on bed, no distress noted.
--- NOTE | 2020-02-29 19:40 | NUR ---
RN OPEN NOTES PATIENT IS WATCHING TV IN BED. BED IS IN LOWEST LOCKED POSITION WITH SIDE RAILS UP X2, SEMI FOWLERS. CALL LIGHT IS WITHIN REACH. ON RA, NO SOB/ ACUTE RESPIRATORY DISTRESS NOTED. NO COMPLAINTS OF PAIN AT THE MOMENT. A/O X4. WILL CONTINUE TO MONITOR.
[2020-02-29 20:00] VITALS: BP 117/55
[2020-02-29] MEDS: INSULIN GLARGINE, 100 UNIT/ML CARTRIDGE SQ SCH (22:42)
[2020-03-01] VITALS (10 sets, daily range): BP systolic 100–129; BP diastolic 55–77
[2020-03-01] MEDS: MORPHINE SULFATE INJ 2 MG/ML DISP.SYRIN IV PRN ×4 (03:02→20:23)
[2020-03-01] MEDS: MEROPENEM 1 G in IV NS 0.9% 100 ML IV SCH ×3 (03:08→19:32)
[2020-03-01] MEDS: VANCOMYCIN 1 GM in IV D5W 250 ML IV SCH ×3 (03:54→20:23)
[2020-03-01 06:22] LABS: BASOPHILS # (AUTO) 0.1 /CMM (0.0-0.2); BASOPHILS % (AUTO) 0.9 % (0.0-2.0); EOSINOPHILS % (AUTO) 4.8 % (0.0-6.0); HEMATOCRIT 23 % (39-51); HEMOGLOBIN 7.5 g/dL (13.5-17.5); LYMPHOCYTES # (AUTO) 1.9 /CMM (0.8-4.8); LYMPHOCYTES % (AUTO) 16.7 % (20.0-44.0); MEAN CORPUSCULAR HGB CONC 33 g/dl (31.0-36.0); MEAN CORPUSCULAR VOLUME 85 fL (80-96); MONOCYTES # (AUTO) 1.2 /CMM (0.1-1.30); MONOCYTES % (AUTO) 10.3 % (2.0-12.0); NEUTROPHILS # (AUTO) 7.6 /CMM (1.8-8.9); NEUTROPHILS % (AUTO) 67.3 % (43.0-81.0); PLATELET COUNT (AUTO) 514 /CMM (150-450); RED BLOOD CELL COUNT(AUTO) 2.73 MIL/uL (4.5-6.0); WHITE BLOOD COUNT (AUTO) 11.3 K/uL (4.3-11.0)
[2020-03-01 06:27] LABS: CALCIUM, SERUM 8.1 mg/dL (8.5-10.1); CREATININE 0.7 mg/dL (0.6-1.3); POTASSIUM 4.2 mmol/L (3.5-5.1)
[2020-03-01] MEDS: BLOOD SUGAR DIAGNOSTIC 1 EACH STRIP IN SCH ×4 (06:41→21:34)
[2020-03-01] MEDS: INSULIN REGULAR, HUMAN 100 UNIT/ML 3 ML VIAL SQ PRN ×3 (06:55→17:01)
--- NOTE | 2020-03-01 07:09 | NUR ---
RN CLOSE NOTES PATIENT IS LAYING IN BED, BED IS IN LOWEST LOCKED POSITION WITH SIDE RAILS UP X2, SEMI FOWLERS. ALL DUE MEDS/ ANTIBIOTICS GIVEN. NO SOB/ ACUTE RESPIRATORY DISTRESS NOTED. CALL LIGHT IS WITHIN REACH. APPEARS COMFORTABLE/ NO COMPLAINTS OF PAIN AT THE MOMENT. WILL ENDORSE TO AM NURSE.
--- NOTE | 2020-03-01 07:15 | NUR ---
MS RN NOTES RECEIVED PATIENT ASLEEP, AROUSABLE TO VERBAL AND TACTILE STIMULI. NO SOB. DENIES ANY C/O PAIN NOR DISCOMFORT. LEFT UPPER ARM MIDLINE INTACT AND PATENT. BED IN LOWEST POSITION, LOCKED. BED ALARM ON. RT ARM DRESSING INTACT. CALL LIGHT WITHIN REACH. ABLE TO VERBALIZE NEEDS.
--- NOTE | 2020-03-01 07:25 | NUR ---
MS RN NOTES DR. ROY SEEN AND EXAMINED PATIENT. MD DISCUSSED WITH PATIENT AND OBTAINED CONSENT FOR RIGHT ABOVE ELBOW AMPUTATION AND PATIENT CONSENTED. PATIENT FOR SCHEDULED SURGERY ON 03/02/[address] ROY OK TO GIVE LOVENOX TODAY BUT HOLD LOVENOX TOMORROW 03/02/20.
[2020-03-01] MEDS: PANTOPRAZOLE 40 MG TABLET.DR PO SCH ×2 (08:53→20:23)
[2020-03-01] MEDS: ENOXAPARIN SODIUM 80 MG/0.8 ML DISP.SYRIN SQ SCH ×2 (08:55→20:43)
--- NOTE | 2020-03-01 14:30 | NUR ---
MS RN NOTES PER MICHAEL CAVAZOS. PATIENT TO RECEIVE 2PRBC'S TONIGHT AT 8 PM 03/01/20 AND 1 IN OR FOR SURGERY ON 03/02/20. WILL ENDORSE TO NOC SHIFT NURSE. OR NURSE MADE AWARE. PER OR NURSE PATIENT WILL BE PICKED UP AY 0630 FOR SURGERY ON 03/02/20. ENDORSED ACCORDINGLY.
[2020-03-01] MEDS: LORAZEPAM INJ 2 MG/ML VIAL IV PRN (17:58)
[2020-03-01] MEDS: IV Sodium Chloride 3% 500 ML 500 ML IV PRN (18:07)
--- NOTE | 2020-03-01 18:55 | NUR ---
MS RN NOTES ALERT AND ORIENTED X3. NO S/S OF RESPIRATORY DISTRESS. DENIES ANY C/O PAIN NOR DISCOMFORT. LEFT UPPER ARM MIDLINE INTACT AND PATENT INFUSING 3% NS AT 30ML/HR RADHA WELL.RIGHT ARM WOUND CARE DONE RADHA WELL. BED IN LOWEST POSITION, LOCKED. BED ALARM ON. RT ARM DRESSING INTACT. AMBULATORY WITH STEADY GAIT. CALL LIGHT WITHIN REACH. ABLE TO VERBALIZE NEEDS. IN NO APPARENT DISTRESS.
--- NOTE | 2020-03-01 20:23 | NUR ---
prn morphine: pt c/o 10/10 pain on right arm requesting for pain medication, prn morphine 4mg ivp administered to pt at this time. will continue to monitor and reassess pt.
--- NOTE | 2020-03-01 20:47 | NUR ---
rn notes: pt for sx in am, per okay to give lovenox for tonight (aware of pt's h/h and order for blood transfusion tonight) but held dose for tomorrow.
[2020-03-01] MEDS: INSULIN GLARGINE, 100 UNIT/ML CARTRIDGE SQ SCH (21:08)
--- NOTE | 2020-03-01 21:09 | NUR ---
rn notes: informed md regarding pt's blood glucose 256, supposed to get 38 units of lantus, for sx in am, per md to give half of the dose only which is 19units sq for tonight. order read back verified and carried out.
[2020-03-01] MEDS ORDERED: INSULIN GLARGINE, 100 UNIT/ML CARTRIDGE SQ ONE (21:30)
[2020-03-01] MEDS: *INSULIN REGULAR(HUMULIN R)HUM 100 UNIT/ML VIAL SQ PRN (21:36)
--- NOTE | 2020-03-01 22:46 | NUR ---
rn notes: blood transfusion: 1unit prbc started, cosigned by rn nai, vs taken and recorded prior to administering blood. will stay with the pt for 30mins to observe for any s/s of blood transfusion reaction.
[2020-03-01] MEDS: ACETAMINOPHEN 325 MG TABLET PO PRN (23:56)
--- NOTE | 2020-03-01 23:56 | NUR ---
RN NOTES/PRN TYLENOL: NOTIFIED MD REGARDING PT;S TEMP 99.3 ORAL, RECHECK TWICE, MD AWARE PT CURRENTLY RECEIVING BLOOD TRANSFUSION , PER MD OKAY TO CONTINUE WITH BLOOD TRANSFUSION AND GIVE PRN TYLENOL. ORDER READ BACK VERIFIED AND CARRIED OUT.
[2020-03-02] VITALS (26 sets, daily range): BP systolic 98–129; BP diastolic 52–78
--- NOTE | 2020-03-02 | NUR ---
RN NOTES: COOLING MEASURES PROVIDED,EXTRA THICK BLANKET REMOVED.
--- NOTE | 2020-03-02 00:55 | NUR ---
rn notes/prbc transfusion completed bag #1: prbc transfusion completed, pt remains on cooling measures, normal saline infusing per protocol per blood transfusion. latest temp 99.2, md aware, no new orders received. will continue monitoring pt for any s/s of blood transfusion reaction. ua collected and sent to lab for sx in am.
[2020-03-02] MEDS: MORPHINE SULFATE INJ 2 MG/ML DISP.SYRIN IV PRN ×3 (01:02→18:46)
--- NOTE | 2020-03-02 01:03 | NUR ---
prn morphine: pt complaining of 10/10 right arm pain, prn morphine 4mg ivp administered to pt at this time, will continue to monitor and reassess pt.
--- NOTE | 2020-03-02 01:30 | NUR ---
RN NOTES/PRBC TRANSFUSION #2: 2ND UNIT OF PRBC ADMINISTERED VERIFIED AND COSIGNED WITH ANOTHER RN CARLENE Meehan, VS TAKEN AND RECORDED PRIOR TO STARTING THE TRANSFUSION. MD AWARE OF PT'S TEMPERATURE, COOLING MEASURES CONTINUED. PT A/O X3, ON 2L OXYGEN VIA NC. WILL STAY WITH THE PT FOR 30MINS TO MONITOR FOR ANY S/S OF TRANSFUSION REACTION.
--- NOTE | 2020-03-02 03:38 | NUR ---
2ND UNIT PRBC TRANSFUSION COMPLETED: 2ND UNIT PRBC TRANSFUSION COMPLETED, VS TAKEN AND RECORDED, LATEST TEMP 98.2 ORALLY, PT DENIES ANY CHEST PAIN, SOB, NO RASHES, REDNESS, NO CHILLS NOTED, NO S/S OF ADVERSE REACTION NOTED. NS RUNNING PER BLOOD TRANSFUSION PROTOCOL. WILL [id number] MONITORING PT. Addendum: 03/02/20 at 0341 by KAROLINA CRISTOBAL RN Amended: Links added.
[2020-03-02] MEDS: MEROPENEM 1 G in IV NS 0.9% 100 ML IV SCH ×3 (04:06→19:48)
--- NOTE | 2020-03-02 04:10 | NUR ---
rn notes: rt doing ekg at bed side
[2020-03-02 04:26] LABS: APPEARANCE,URINE CLEAR (CLEAR); BILIRUBIN,URINE NEGATIVE (NEGATIVE); BLOOD, URINE NEGATIVE Ery/uL (NEGATIVE); COLOR,URINE YELLOW (YELLOW); KETONES,URINE NEGATIVE (NEGATIVE); LEUKOCYTE ESTERASE ,URINE NEGATIVE (NEGATIVE); NITRITE, URINE NEGATIVE (NEGATIVE); PH,URINE 6.5 (5.0-8.0); PROTEIN,URINE NEGATIVE (NEGATIVE); UGLUCOSE >=1000 mg/dL (NEGATIVE); UROBILINOGEN,URINE 0.2 EU/dL (0.2)
[2020-03-02 04:32] LABS: BACTERIA,URINE Rare /HPF (None Seen); RBC,URINE 0-2 /HPF (0-2); SQUAMOUS EPITHELIAL CELL,UR Rare /HPF (None Seen); WBC,URINE 0-2 /HPF (0-3)
--- NOTE | 2020-03-02 04:47 | NUR ---
rn notes: wood scrap handler vasquez at bed side for lab draw
[2020-03-02] MEDS: VANCOMYCIN 1 GM in IV D5W 250 ML IV SCH ×3 (04:50→20:30)
[2020-03-02 05:06] LABS: BASOPHILS # (AUTO) 0.2 /CMM (0.0-0.2); HEMATOCRIT 30 % (39-51); HEMOGLOBIN 9.8 g/dL (13.5-17.5); LYMPHOCYTES # (AUTO) 2.2 /CMM (0.8-4.8); LYMPHOCYTES % (AUTO) 20.1 % (20.0-44.0); MEAN CORPUSCULAR HGB CONC 32 g/dl (31.0-36.0); MEAN CORPUSCULAR VOLUME 85 fL (80-96); MONOCYTES # (AUTO) 1.2 /CMM (0.1-1.30); MONOCYTES % (AUTO) 10.8 % (2.0-12.0); NEUTROPHILS # (AUTO) 6.6 /CMM (1.8-8.9); NEUTROPHILS % (AUTO) 60.1 % (43.0-81.0); PLATELET COUNT (AUTO) 528 /CMM (150-450); RED BLOOD CELL COUNT(AUTO) 3.54 MIL/uL (4.5-6.0)
--- NOTE | 2020-03-02 05:07 | NUR ---
prn morphine: pt c/o 10/10 right arm pain, requesting for morphine, prn morphine 4mg ivp administered to the pt at this time, will continue to monitor and reassess pt.
--- NOTE | 2020-03-02 05:12 | NUR ---
rn notes: orthopedics teacher came to draw lab-bmp
[2020-03-02 05:48] LABS: CALCIUM, SERUM 8.4 mg/dL (8.5-10.1); CREATININE 0.6 mg/dL (0.6-1.3); POTASSIUM 3.9 mmol/L (3.5-5.1)
[2020-03-02] MEDS: BLOOD SUGAR DIAGNOSTIC 1 EACH STRIP IN SCH ×4 (05:56→21:20)
[2020-03-02] MEDS: INSULIN REGULAR, HUMAN 100 UNIT/ML 3 ML VIAL SQ PRN ×3 (05:56→17:30)
--- NOTE | 2020-03-02 05:56 | NUR ---
rn notes: blood glucose check result is 230, no insulin given at this time, as pt npo for sx at 0630am
--- NOTE | 2020-03-02 06:27 | NUR ---
RN NOTES: OR CALLED FOR REPORT, PT WILL BE AGENCY RECRUITER AT 0630AM, ALL CONSENT FOR PROCEDURE SIGNED AND ATTACHED TO CHART, CHECKLIST COMPLETED, VS TAKEN AND RECORDED, PT READY FOR AGENCY RECRUITER.
--- NOTE | 2020-03-02 06:45 | NUR ---
RN NOTES: PT FOR RIGHT ABOVE ELBOW AMPUTATION BY DR ROY, EQUIPMENT COORDINATOR BY OR STAFF.
[2020-03-02] MEDS ORDERED: MORPHINE SULFATE/PF 10 MG/10ML (1MG/ML) AMPUL ONE (06:55)
[2020-03-02] MEDS ORDERED: MORPHINE SULFATE INJ 4 MG/ML DISP.SYRIN ONE (06:55)
--- NOTE | 2020-03-02 07:04 | NUR ---
END OF SHIFT REPORT: RECEIVED REPORT FROM SHANNAN GALINDO AT 1915 LAST NIGHT. PT A/O X3, ON RA RESPIRATION EVEN AND UNLABORED. DECIDED TO PUT PT ON 2L OXYGEN AROUND MIDNIGHT NOTED SPO2 ON RA WAS 92%. PT S/P 2UNIT PRBC TRANSFUSION COMPLETED AT 0336AM PER MD ORDER. PRN TYLENOL ADMINISTERED FOR EPISODE OF FEVER 99.3 TMAX 99.4, DURING TRANSFUSION, MD DR KRAUS NOTIFIED WITH ORDERS TO GIVE TYLENOL AND OKAY TO CONTINUE WITH TRANSFUSION. TEMP POST PRBC TRANSFUSION WAS 98.2 ORALLY. NPO P MN. FINGERSTICK BLOOD GLUCOSE CHECK PERFORMED LAST NIGHT RESULT IS 256, WITH 6UNITS OF INSULIN GIVEN PER SLIDING SCALE, ALSO 19UNITS LANTUS PER MD ORDER. LATEST BLOOD GLUCOSE IS 230. EKG DONE, ATTACHED TO CHART. PRN MORPHINE ADMINISTERED FOR PT C/O RIGHT ARM PAIN (2022, 0100AM). PT USES URINAL, URINE SPECIMEN SENT LAST NIGHT TO LAB PER MD ORDER FOR URINALYSIS. PT HAS LACHO MIDLINE IN PLACED, PATENT AND FLUSHING WELL, ON HL (SUPPOSED TO BE GETTING 3% NS AT 30ML/HR, BUT PT WENT TO SURGERY. PT TREE INSPECTOR BY OR STAFF AT 0645AM, FOR RIGHT ABOVE THE ELBOW AMPUTATION. ENDORSED TO DAY RN, FOR AVERY.
[2020-03-02] MEDS ORDERED: BACITRACIN 50000 UNITS/VIAL ONE (08:06)
[2020-03-02] MEDS ORDERED: SEVOFLURANE 250 ML BOTTLE IH ONE (08:34)
[2020-03-02] MEDS ORDERED: DESFLURANE 240 ML BOTTLE IH ONE (08:35)
[2020-03-02] MEDS ORDERED: BUPIVACAINE 0.25% 75 MG/30 ML VIAL ONE (08:44)
[2020-03-02] MEDS: PANTOPRAZOLE 40 MG TABLET.DR PO SCH ×2 (09:00→21:19)
--- NOTE | 2020-03-02 10:19 | NUR ---
MS/RN NOTE THE PATIENT IS RECEIVED FROM OR IN BED. THE PATIENT ALERT AND ORIENTED X3. ON OXYGEN AT 2L/MIN VIA NASAL CANNULA AND DENIES SOB. RESPIRATION REGULAR AND UNLABORED. DENIES PAIN. RIGHT ABOVE THE ELBOW POST AMBULATION SURGICAL DRESSING IN PLACE WITH PAULETTE DRAIN. PATIENT IN STABLE CONDITION. WILL CONTINUE TO MONITOR.
--- NOTE | 2020-03-02 10:36 | NUR ---
MS/RN NOTE PROTONIX 40 MG DUE AT 0900 IS NOT ADMINISTERED DUE TO PATIENT BEING IN OR.
--- NOTE | 2020-03-02 19:18 | NUR ---
MS/RN NOTE THE PATIENT IS ALERT AND ORIENTED X3. DENIES SOB. IN ROOM AIR AND OXYGEN SATURATION IN ROOM AIR IS AT 96%. RESPIRATION REGULAR AND UNLABORED. DENIES PAIN AT THIS TIME. THE PATIENT IN NO APPARENT DISTRESS. RIGHT ABOVE THE ARM SURGICAL DRESSING INTACT. NO BLEEDING NOTED FROM THE DRESSING. PAULETTE DRAIN AT THE SURGICAL SITE HAD 15 ML OF SANGUINOUS OUTPUT. LACHO G 18 MIDLINE PATENT AND SALINE LOCKED. THE PATIENT REFUSES IV FLUID DESPITE EXPLAINING RISKS AND BENEFITS MULTIPLE TIMES. BED LOW AND LOCKED. SIDE RAILS UP X2. CALL LIGHT WITHIN REACH. WILL ENDORSE TO ORACLE CONSULTANT.
[2020-03-02] MEDS: ACETAMINOPHEN 325 MG TABLET PO PRN (19:47)
--- NOTE | 2020-03-02 20:05 | NUR ---
prn tylenol: pt requesting for tylenol for right arm post op pain, prn tylenol 650 mg tab po administered to pt at this time, ps 12/19. will continue to monitor and reassess pt
[2020-03-02] MEDS: IV Sodium Chloride 3% 500 ML 500 ML IV PRN (20:36)
[2020-03-02] MEDS ORDERED: NALOXONE HCL 0.4 MG/ML AMPUL IV PRN (21:00)
--- NOTE | 2020-03-02 21:00 | NUR ---
RN NOTES:PAGED EPIC NOTIFIED EPIC HUNTER GUIDE DR KRAUS REGARDING PT'S C/O EXCRUCIATING PAIN ON RIGHT UPPER ARM (REMAINING STUMP) S/P ARIGHT ABOVE ELBOW AMPUTATION THIS AFTERNOON, PRN MORPHINE MORPHINE GIVEN AT 184, MADE AWARE OF PT'S VS AT 1999, HOWEVER PT FEELING VERY UNCOMFORTABLE DUE TO 10/10 PAIN, PER MD TELEPHONE ORDER TO DC MORPHINE IVP, AND GIVE DILAUDID 1MG IVP PRN FOR SEVERE PAIN 8-10, HYDROCODONE 10/325 MG TAB PO Q6HRS FOR MODERATE PAIN, AND NARCAN 0.4 MG Q2M PRN FOR RESPIRATORY DEPRESSION (PHARMACY RECOMMENDATION), WILL MONITOR PT'S BREATHING/RESPIRATORY STATUS, OKAY TO GIVE DILAUDID DOSE NOW. ORDER READ BACK VERIFIED AND CARRIED OUT.
[2020-03-02] MEDS: HYDROMORPHONE 1 MG/1 ML DISP.SYRIN IV PRN (21:02)
--- NOTE | 2020-03-02 21:07 | NUR ---
PRN DILAUDID: PT C/O 07/21 RIGHT ARM PAIN, CLAIMED ITS EXCRUCIATING, THROBBING PULLING, AND MADE HIM VERY UNCOMFORTABLE, PRN DILAUDID 1MG IVP ADMINISTERED TO PT AT THIS TIME, PT CONNECTED ON CONTINUOUS PULSE OX, SPO2 93-94% ON RA, PLACED ON 2L OXYGEN VIA NC, RR 17, EDUCATION PROVIDED TO PT REGARDING SIDE EFFECTS OF MEDICATION. WILL CONTINUE MONITOR.
[2020-03-02] MEDS: INSULIN GLARGINE, 100 UNIT/ML CARTRIDGE SQ SCH (21:19)
[2020-03-02] MEDS: *INSULIN REGULAR(HUMULIN R)HUM 100 UNIT/ML VIAL SQ PRN (21:19)
--- NOTE | 2020-03-03 00:12 | NUR ---
rn notes: pt requested for ativan, after rn prepared medication and wasted with another rn laura, upon going to the room, pt changed his mind and stated he figured out what he wanted was pain medicine and not ativan, informed pt next dose of dilaudid will be at 0102am, as it is prn q4hrs, offered norco for pain, but pt stated he prefers dilaudid iv and willing to wait for it. no longer wants his iv ativan. ativan wasted with another rn jenni.
[2020-03-03] MEDS: LORAZEPAM INJ 2 MG/ML VIAL IV PRN (00:17)
[2020-03-03 01:02] VITALS: BP 116/66
[2020-03-03] MEDS: HYDROMORPHONE 1 MG/1 ML DISP.SYRIN IV PRN ×5 (01:03→20:40)
--- NOTE | 2020-03-03 01:04 | NUR ---
prn dilaudid: pt c/o 07/21 right stump pain pressure like, s/p right above elbow amputation, prn dilaudid 1mg ivp administered to the pt at this time, vs taken and recorded, remains on continuous pulse oximetry, spo2 on ra 94-98%, a/o x4, rr 18, will continue to monitor and reassess pt,
[2020-03-03 02:40] VITALS: BP 137/81
[2020-03-03] MEDS: HYDROCODONE/APAP 10/325MG 1 EA TABLET PO PRN ×4 (02:50→21:27)
--- NOTE | 2020-03-03 02:51 | NUR ---
PRN NORCO 10/325: PT C/O 04/20 PRESSURE LIKE PAIN ON REMAINING RIGHT ARM/STUMP, REQUESTING FOR PAIN MEDICATION, PRN NORCO 10/325 MG TAB PO ADMINISTERED TO PT AT THIS TIME, VS TAKEN AND RECORDED, REMAINS ON CONTINUOS PULSE OXIMETRY SPO2 93% ON RA, WILL CONTINUE TO MONITOR AND REASSESS PT.
[2020-03-03] MEDS: MEROPENEM 1 G in IV NS 0.9% 100 ML IV SCH ×3 (03:01→19:30)
[2020-03-03] MEDS: VANCOMYCIN 1 GM in IV D5W 250 ML IV SCH ×3 (03:43→20:10)
[2020-03-03 05:16] VITALS: BP 121/73
--- NOTE | 2020-03-03 05:17 | NUR ---
prn dilaudid: pt c/o 07/21 right arm remaining stump requesting for dilaudid, prn dilaudid 1mg ivp administered to pt at this time, plpaced on 2l oxygen although pt been taking it off the entire night, encourage pt to use it, spo2 2l nc is 97%, rr 17, vs takena nd recorded prior to administering medication, will continue to monitor and reasses
[2020-03-03] MEDS: BLOOD SUGAR DIAGNOSTIC 1 EACH STRIP IN SCH ×4 (05:29→21:22)
[2020-03-03] MEDS: INSULIN REGULAR, HUMAN 100 UNIT/ML 3 ML VIAL SQ PRN ×4 (05:32→21:44)
--- NOTE | 2020-03-03 05:32 | NUR ---
rn notes/blood glucose 338: pt insisted to have his blood gluciose check now as he would like to eat sandwich, fingerstick blood glucose check performed result is 338, with 16units of insulin given per sliding scale.
--- NOTE | 2020-03-03 06:34 | NUR ---
END OF SHIFT REPORT: RECEIVED REPORT FORM MARGIE RN AT 1930 LAST NIGHT. PT S/P RIGHT ABOVE ELBOW AMPUTATION 03/[address] ROY, WITH DRESSING C/D/I, NO ACTIVE BLEEDING NOTED, NO STRIKETHROUGH NOTED THROUGHOUT THE SHIFT, PAULETTE BULB DRAIN IN PLACED WITH VERY MINIMAL AMOUNT OF DRAINAGE NOTED. PT A/O X3 INITIALLY ON RA, RESPIRATIONS EVEN AND UNLABORED. LACHO MIDLINE REMAINS PATENT AND FLUSHING WELL, ON HL, PT KEPT REFUSING FOR IV FLUID DESPITE PROVIDING EDUCATION. DUE TO PATIENT'S COMPLAIN OF EXCRUCIATING PAIN NOT EFFECTIVELY MANAGE BY MORPHINE, DILAUDID 1MG IVP WAS THEN NEWLY ORDERED BY JAVED GUPTA, ALTERNATE WITH NORCO 10/325MG Q6HRS PRN FOR MANAGING PT'S PAIN. A NARCAN 0.4 MG IV Q2M PRN WAS THEN ORDERED FOR RESPIRATORY DEPRESSION. PT WAS THEN PLACED ON 2L OXYGEN HOWEVER PT KEPT REFUSING, PLACED ON CONTINUOUS PULSE OXIMETRY, SPO2 ON RA RANGING 93-94%, WITH OXYGEN IT'S 95-98%. NO S/S OF RESPIRATORY DEPRESSION NOTED. PT ALSO REFUSED SCD. PT AMBULATORY, CONTINENT, SOMETIMES USES URINAL, MOST OF THE TIME PREFERS USING THE BATHROOM. IV ATB ADMINISTERED SCHEDULED. FINGERSTICK GLUCOSE CHECK PERFORMED AND PT WAS GIVEN INSULIN PER SLIDING SCALE. PT BEEN ASKING FOR SNACK AND SANDWICHES AND GOT IRRITATED AND UPSET IF NOT GIVEN FOOD. LATEST BLOOD GLUCOSE IS 338. RECOMMENDS PAIN MANAGEMENT CONSULT. SUPPLIES NEEDED BY DR ROY FOR DRESSING CHANGE ARE AVAILABLE AT BED SIDE. VS REMAINS STABLE, NEEDS ATTENDED. SAFETY PRECAUTIONS FOR FALL REMAINS ENGAGED, CALL LIGHT IN REACH, WILL ENDORSE TO DAY RN FOR CONTINUITY OF CARE.
[2020-03-03 07:23] LABS: BASOPHILS % (AUTO) 0.4 % (0.0-2.0); EOSINOPHILS % (AUTO) 4.4 % (0.0-6.0); HEMATOCRIT 27 % (39-51); HEMOGLOBIN 8.7 g/dL (13.5-17.5); LYMPHOCYTES # (AUTO) 2.2 /CMM (0.8-4.8); LYMPHOCYTES % (AUTO) 18.6 % (20.0-44.0); MEAN CORPUSCULAR HGB CONC 33 g/dl (31.0-36.0); MEAN CORPUSCULAR VOLUME 85 fL (80-96); MONOCYTES # (AUTO) 1.1 /CMM (0.1-1.30); MONOCYTES % (AUTO) 9.8 % (2.0-12.0); NEUTROPHILS # (AUTO) 7.8 /CMM (1.8-8.9); NEUTROPHILS % (AUTO) 66.8 % (43.0-81.0); PLATELET COUNT (AUTO) 544 /CMM (150-450); RED BLOOD CELL COUNT(AUTO) 3.11 MIL/uL (4.5-6.0); WHITE BLOOD COUNT (AUTO) 11.7 K/uL (4.3-11.0)
--- NOTE | 2020-03-03 07:30 | NUR ---
RN NOTES RECEIVED PATIENT IN BED RESTING COMFORTABLY IN MODERATE HIGH BACK REST. A/OL X4. ON OXYGEN 2LPM VIA NC. NO SIGNS OF DISTRESS NOTED AT THIS TIME. S/P RIGHT ABOVE ELBOW AMPUTATION 03/[address] ROY, WITH DRESSING C/D/I, NO ACTIVE BLEEDING NOTED, PAULETTE BULB DRAIN IN PLACED NOTED. NOTED WITH IV ACCESS ON LACHO MIDLINE PATENT AND FLUSHING WELL, ON HL, PT REFUSING FOR IV FLUID DESPITE PROVIDING EDUCATION. SAFETY PRECAUTIONS IN PLACE, BED PLACED IN LOWEST LOCKED POSITION WITH SIDE RAILS UP X2, CALL LIGHT IN REACH, WILL CONTINUE TO MONITOR.
[2020-03-03 07:51] LABS: CALCIUM, SERUM 8.1 mg/dL (8.5-10.1); CREATININE 0.7 mg/dL (0.6-1.3); POTASSIUM 3.9 mmol/L (3.5-5.1)
[2020-03-03 08:00] VITALS: BP 119/72
[2020-03-03] MEDS: PANTOPRAZOLE 40 MG TABLET.DR PO SCH ×2 (08:17→21:22)
[2020-03-03] MEDS: DABIGATRAN ETEXILATE MESYLATE 150 MG CAPSULE PO SCH ×2 (08:22→21:21)
--- NOTE | 2020-03-03 12:00 | NUR ---
RN NOTES S/P AMPUTATION ON RIGHT ARM, PATIENT REMOVED THE DRESSINGS, HE SAID IT IS TOO PAINFUL WITH DRESSING, EXPLAINED THE BENEFITS AND RISKS BUT PATIENT REFUSED, OFFER TO PUT DRESSING BACK AGAIN BUT A LITTLE BIT LOOSE THIS TIME BUT PATIENT STILL REFUSED. NO BEEDING NOTED, WILL CONTINUE TO MONITOR.
--- NOTE | 2020-03-03 13:00 | NUR ---
RN NOTES COVID TEST WAS DONE, SPECIMEN DELIVERED TO LAB, SPOKE TO MICHAEL CAVAZOS AND ORDER TO DC 3% NS AND REPLACE WITH 0.9% NORMAL SALINE TO RUN 75ML/HR. ORDERS MADE AND CARRIED OUT. WILL CONTINUE TO MONITOR.
[2020-03-03] MEDS: IV NS 0.9% 1,000 ML IV PRN (13:55)
[2020-03-03 16:00] VITALS: BP 139/74
--- NOTE | 2020-03-03 18:26 | NUR ---
RN NOTES PATIENT IN BED RESTING COMFORTABLY IN MODERATE HIGH BACK REST. A/OL X4. ON OXYGEN 2LPM VIA NC. NO SIGNS OF DISTRESS NOTED THROUGHOUT THE SHIFT. S/P RIGHT ABOVE ELBOW AMPUTATION 03/[address] ROY, PATIENT REMOVED THE DRESSING AND REFUSED WOUND CARE AND DRESSING. NO ACTIVE BLEEDING NOTED, PAULETTE BULB DRAIN IN PLACED WITH 5 CC OF OUTPUT NOTED. NOTED WITH IV ACCESS ON LACHO MIDLINE WITH NS RUNNING @75ML/HR. PATENT AND INTACT . SAFETY PRECAUTIONS IN PLACE, BED PLACED IN LOWEST LOCKED POSITION WITH SIDE RAILS UP X2, CALL LIGHT IN REACH, WILL ENDORSE TO AIR DEFENSE CONTROL OFFICER NURSE FOR AVERY.
--- NOTE | 2020-03-03 19:00 | NUR ---
RN OPENING NOTES Received patient A/O X4, awake, sitting on bed. No complaints of discomfort at this time. Patient removed his dressing, refused reapplication of dressing s/p NUNU amputation. No bleeding, sutures intact. On RA, no sOB/respiratory distress noted. Kept on bed clean, dry and comfortable. On fall and aspiration precautions. Will continue to monitor accordingly.
[2020-03-03 20:00] VITALS: BP 123/79
--- NOTE | 2020-03-03 20:40 | NUR ---
RN NOTES Patient asked for Dilaudid. Assessed for Pain: claimed 10/10 NUNU, no facial grimacing, watching TV at this time. Educated on indication and possible ASE, patient verbalized understanding. Administered as ordered. Will continue to monitor accordingly.
[2020-03-03] MEDS: INSULIN GLARGINE, 100 UNIT/ML CARTRIDGE SQ SCH (21:43)
[2020-03-04] MEDS: *INSULIN REGULAR(HUMULIN R)HUM 100 UNIT/ML VIAL SQ PRN (00:14)
[2020-03-04] MEDS: HYDROMORPHONE 1 MG/1 ML DISP.SYRIN IV PRN ×4 (01:00→19:54)
[2020-03-04] MEDS: MEROPENEM 1 G in IV NS 0.9% 100 ML IV SCH ×3 (03:11→19:21)
[2020-03-04] MEDS: HYDROCODONE/APAP 10/325MG 1 EA TABLET PO PRN ×2 (03:27→05:41)
[2020-03-04] MEDS: VANCOMYCIN 1 GM in IV D5W 250 ML IV SCH ×3 (04:15→20:54)
[2020-03-04] MEDS: BLOOD SUGAR DIAGNOSTIC 1 EACH STRIP IN SCH ×4 (06:46→22:03)
--- NOTE | 2020-03-04 07:16 | NUR ---
RN CLOSING NOTES Patient asleep on bed, on RA, no SB/respiratory distress noted. Due meds given as order, no ASE noted. Medicated for pain, noted effective. Noted ambulating to bathroom with steady gait. Able to reposition self independently. All nursing needs attended. NUNU s/p amputation, patient refused to put on dressing, with PAULETTE drain on bulb suction, with serosanguineous drainage noted <10ML noted. Kept on bed clean, dry and comfortable. Endorsed.
--- NOTE | 2020-03-04 07:48 | NUR ---
rn notes patient vomited blood, ramos IMPLANT POLISHER aware. ZOFRAN given and patient asked for dilaudid for pain as well. Patient stated it was the 5th time it has happened to him in the past few days.
[2020-03-04] MEDS: INSULIN REGULAR, HUMAN 100 UNIT/ML 3 ML VIAL SQ PRN (07:58)
[2020-03-04] MEDS: DABIGATRAN ETEXILATE MESYLATE 150 MG CAPSULE PO SCH (08:03)
[2020-03-04] MEDS: PANTOPRAZOLE 40 MG TABLET.DR PO SCH (08:06)
[2020-03-04 09:45] VITALS: BP 114/73
[2020-03-04 10:53] LABS: BASOPHILS # (AUTO) 0.1 /CMM (0.0-0.2); EOSINOPHILS % (AUTO) 6.3 % (0.0-6.0); HEMATOCRIT 27 % (39-51); HEMOGLOBIN 8.7 g/dL (13.5-17.5); LYMPHOCYTES # (AUTO) 1.8 /CMM (0.8-4.8); LYMPHOCYTES % (AUTO) 16.8 % (20.0-44.0); MEAN CORPUSCULAR HGB CONC 32 g/dl (31.0-36.0); MEAN CORPUSCULAR VOLUME 86 fL (80-96); MONOCYTES # (AUTO) 1.2 /CMM (0.1-1.30); MONOCYTES % (AUTO) 11.1 % (2.0-12.0); NEUTROPHILS # (AUTO) 6.9 /CMM (1.8-8.9); NEUTROPHILS % (AUTO) 64.8 % (43.0-81.0); PLATELET COUNT (AUTO) 548 /CMM (150-450); RED BLOOD CELL COUNT(AUTO) 3.18 MIL/uL (4.5-6.0); WHITE BLOOD COUNT (AUTO) 10.7 K/uL (4.3-11.0)
[2020-03-04 11:06] LABS: CALCIUM, SERUM 8.4 mg/dL (8.5-10.1); CREATININE 0.6 mg/dL (0.6-1.3); POTASSIUM 3.7 mmol/L (3.5-5.1)
--- NOTE | 2020-03-04 11:57 | NUR ---
rn notes patients blood glucose 286, NPO at this time, no insulin given.
[2020-03-04 17:11] VITALS: BP 128/56
--- NOTE | 2020-03-04 18:23 | NUR ---
rn notes patient remains on room air, no sob noted, a/o x4, NUNU s/p amputation, no bleeding or redness noted on the incision site. L UA midline with NS @ 75 ml per hour. Blood sugar checked and insulin coverage given with no s/s of hypoglycemia noted. 30 ml on the PAULETTE sangrenous blood noted. HOLD off anticoagulant at this time due to vomitting of blood this AM. PROCESS CONTROL TECH vasquez aware of vomitting. Anticoagulant held. NPO midnight for possible EGD tomorrow. Bed at the lowest setting, call light within reach, side rails up x2.
[2020-03-04 19:23] LABS: HEMOGLOBIN 9.5 g/dL (13.5-17.5)
--- NOTE | 2020-03-04 19:25 | NUR ---
RN OPEN NOTES PATIENT IS LAYING IN BED, BED IS IN LOWEST LOCKED POSITION WITH SIDE RAILS UP X2 , SEMI FOWELRS NO SOB/ ACUTE RESPIRATORY DISTRESS NOTED. CALL LIGHT IS WITHIN REACH. NO COMPLAINTS OF PAIN AT THE MOMENT. WILL CONTINUE TO MONITOR.
[2020-03-04 20:00] VITALS: BP 126/67
[2020-03-04 20:16] VITALS: BP 126/67
[2020-03-04] MEDS: PANTOPRAZOLE 40 MG VIAL IV SCH (20:56)
[2020-03-04] MEDS: INSULIN GLARGINE, 100 UNIT/ML CARTRIDGE SQ SCH (22:00)
--- NOTE | 2020-03-04 22:00 | NUR ---
RN NOTES INSULIN LANTUS NON ADMINISTERED DUE TO PATIENT BEING NPO. BLOOD GLUCOSE IS 227. WILL CONTINUE TO MONITOR.
[2020-03-05] MEDS: HYDROMORPHONE 1 MG/1 ML DISP.SYRIN IV PRN ×9 (00:22→23:29)
[2020-03-05] MEDS: MEROPENEM 1 G in IV NS 0.9% 100 ML IV SCH ×2 (03:17→12:24)
[2020-03-05] MEDS: IV NS 0.9% 1,000 ML IV PRN (03:21)
[2020-03-05] MEDS: VANCOMYCIN 1 GM in IV D5W 250 ML IV SCH ×2 (04:20→13:50)
--- NOTE | 2020-03-05 06:35 | NUR ---
RN NOTES NO INSULIN GIVEN DUE TO PATIENT BEING NPO. BLOOD GLUCOSE WAS 228. WILL CONTINUE TO MONITOR.
--- NOTE | 2020-03-05 06:40 | NUR ---
RN CLOSE NOTES PATIENT IS WATCHING TV IN BED. A/O X4. ON RA, NO SOB/ ACUTE RESPIRATORY DISTRESS NOTED. APPEARS COMFORTABLE/ NO COMPLAINTS OF PAIN AT THE MOMENT. ALL DUE ANTIBIOTICS GIVEN. MIDLINE IN L UNDERARM IS PATENT AND INTACT, RUNNING NS @ 75MLS/HR. BED IS IN LOWEST LOCKED POSITION WITH SIDE RAILS UP X2, SEMI FOWLERS. CALL LIGHT IS WITHIN REACH. WILL ENDORSE TO AM NURSE.
[2020-03-05 07:11] LABS: BASOPHILS # (AUTO) 0.1 /CMM (0.0-0.2); BASOPHILS % (AUTO) 1.2 % (0.0-2.0); EOSINOPHILS % (AUTO) 6.7 % (0.0-6.0); HEMATOCRIT 26 % (39-51); HEMOGLOBIN 8.8 g/dL (13.5-17.5); LYMPHOCYTES # (AUTO) 1.9 /CMM (0.8-4.8); LYMPHOCYTES % (AUTO) 18.4 % (20.0-44.0); MEAN CORPUSCULAR HGB CONC 33 g/dl (31.0-36.0); MEAN CORPUSCULAR VOLUME 85 fL (80-96); MONOCYTES # (AUTO) 1.1 /CMM (0.1-1.30); MONOCYTES % (AUTO) 10.3 % (2.0-12.0); NEUTROPHILS # (AUTO) 6.6 /CMM (1.8-8.9); NEUTROPHILS % (AUTO) 63.4 % (43.0-81.0); PLATELET COUNT (AUTO) 585 /CMM (150-450); WHITE BLOOD COUNT (AUTO) 10.4 K/uL (4.3-11.0)
[2020-03-05 07:16] LABS: CALCIUM, SERUM 8.4 mg/dL (8.5-10.1); CREATININE 0.6 mg/dL (0.6-1.3); POTASSIUM 3.9 mmol/L (3.5-5.1)
--- NOTE | 2020-03-05 08:00 | NUR ---
RN CLOSE NOTES RECEIVED PT WATCHING TV IN BED. A/O X4. ON RA, NO SOB/ ACUTE RESPIRATORY DISTRESS NOTED. APPEARS COMFORTABLE. IV ACCESS NOTED ON MIDLINE IN L UNDERARM IS PATENT AND INTACT, RUNNING NS @ 75MLS/HR. INFORMED PT TO KEEP NPO. FOR POSSIBLE EGD TODAY. PT AGREED. SAFETY PRECAUTIONS IN PLACE. BED IS IN LOWEST LOCKED POSITION WITH SIDE RAILS UP X2, SEMI FOWLERS. CALL LIGHT IS WITHIN REACH. WILL ENDORSE TO AM NURSE.
[2020-03-05] MEDS: BLOOD SUGAR DIAGNOSTIC 1 EACH STRIP IN SCH ×4 (08:04→21:26)
--- NOTE | 2020-03-05 08:05 | NUR ---
MS RN OPENING NOTES RECEIVED PT IN BED. AWAKE ALERT AND ORIENTED X4. NO CARDIAC OR RESPIRATORY DISTRESS NOTED. NO SOB NOTED. SATURATING WELL ON ROOM AIR. PT IS SCHEDULES TO HAVE EGD TODAY. EDUCATED PT TO KEEP NPO UNTIL EGD IS DONE AND COMPLETED. PT AGREED, VERBALIZED UNDERSTANDING. IV ACCESS NOTED ON MIDLINE IN L UNDERARM IS PATENT AND INTACT, RUNNING NS @ 75MLS/HR. NO S/S OFINFECTIOPN OR INFILTRATION NOTED. PT IS AMBULATORY, NOTED WITH STEADY GAIT, ABLE TO AMBULATE TO THE BATHROOM. REMINDED PT TO CALL FOR HELP AND UTILIZE CALL LIGHT WHEN HE WANTS TO GET UP FROM THE BED, ESPECIALLY IS HE IS HOOKED ON THE IV. PT AGREED. SAFETY PRECAUTIONS IN PLACE. BED IS IN LOWEST LOCKED POSITION WITH SIDE RAILS UP X2, SEMI FOWLERS. CALL LIGHT IS WITHIN REACH. WILL CONT TO MONITOR.
[2020-03-05 08:28] VITALS: BP 135/69
[2020-03-05] MEDS: PANTOPRAZOLE 40 MG VIAL IV SCH ×2 (08:40→20:05)
--- NOTE | 2020-03-05 09:00 | NUR ---
SEEN BY MACY RODRIGUEZ PT SEEN BY MACY FINANCIAL PLANNING CONSULTANT, ANIL VILLALOBOS PT NPO FOR EGD TODAY
--- NOTE | 2020-03-05 09:30 | NUR ---
CONSENT OBTAINED CONSENT FROM PT FOR EGD. PT AGREED AND SIGNED CONSENTS.
[2020-03-05] MEDS ORDERED: ANESTHESIA TRAY IN PYXIS 1 EA TRAY MC ONE (10:53)
--- NOTE | 2020-03-05 11:00 | NUR ---
P/U FOR EGD PT LEFT FLOOR FOR EGD TODAY. PT IN STABLE CONDITION.
[2020-03-05] MEDS ORDERED: MORPHINE SULFATE INJ 4 MG/ML DISP.SYRIN ONE (11:12)
--- NOTE | 2020-03-05 12:05 | NUR ---
BACK FROM EGD PT CAME BACK FROM EGD. AWAKE ALERT AND ORIENTED X4. NO CARDIAC OR RESPIRATORY DISTRESS NOTED. NO SOB NOTED. IN STABLE CONDITION. VS CHECKED AND NOTED AT TEMP-98.7, P-87, R-18, BP-107/63, O2 SAT-96% ON ROOM AIR.
[2020-03-05] MEDS: INSULIN REGULAR, HUMAN 100 UNIT/ML 3 ML VIAL SQ PRN ×2 (12:16→16:49)
[2020-03-05] MEDS: LORAZEPAM INJ 2 MG/ML VIAL IV PRN (16:05)
--- NOTE | 2020-03-05 16:30 | NUR ---
DINNER/INSULIN PROVIDED PT WITH HIS DINNER TRY, ASSISTED PT TO SET UP WITH MEALS. PTS BLOOD SUGAR WAS 363 COVERED WITH 16 UNITS OF HUMULIN R PER SLIDING SCALE ORDERS.
[2020-03-05 17:26] VITALS: BP 119/60
--- NOTE | 2020-03-05 17:30 | NUR ---
ROUNDS MADE ROUNDS PT WAS IN BED POSITIONED PROPERLY. HE WAS SLEEPING. NO CARDIAC OR RESP DISTRESS NOTED.
--- NOTE | 2020-03-05 17:45 | NUR ---
REPORTED FALL I WAS MAKING ROUNDS, WENT IN THE PTS ROOM TO CHECK IF HE WAS OKAY. I FOUND THE PT SITTING IN BED. NO CARDIAC OR RESPIRATORY DISTRESS NOTED. I ASKED PT IF HE WAS OKAY, THEN HE TOLD ME, "WELL. I FELL ON THE FLOOR." I ASKED PT WHAT EXACTLY HAPPENED, PT SAID, "I FORGOT I WAS CONNECTED TO THAT IV, THEN I TRIED TO STAND UP BECAUSE I NEEDED TO PEE ON THE URINAL BUT I GUESS I WAS TUGGING ON THE IV TUBING, THEN I LOST MY BALANCE, THEN I EASED MY SELF TO THE FLOOR. I WASN'T ABLE TO SIT BACK ON THE BED. I FELL ON MY BUTT. IM SORRY, IT WAS MY FAULT. I SHOULD HAVE CALLED YOU TO DISCONNECT ME FROM THAT IV FIRST." ASKED PT IS HE HAD FELT ANY DIZZINESS BEFORE FALLING. PT SAID, "NO. I JUST LOST MY BALANCE BECAUSE I WAS HOOKED UP ON THE IV." PROVIDED EDUCATION ON PT TO ALWAYS UTILIZE CALL LIGHT AND ASK FOR ASSISTANCE FROM STAFF WHEN HE IS WANTING TO GET UP ESPECIALLY IF HE IS HOOKED UP ON THE IV, TO PREVENT ACCIDENTS LIKE THIS HAPPENING AGAIN IN THE FUTURE. EDUCATED PT REGARDING THE RISKS, CONSEQUENCES AND NEGATIVE OUTCOMES OF A FALL SUCH FRACTURES OR INJURIES. ASKED PT TO PERFORM ACTIVE RANGE OF MOTION TO BUE AND BLE. AND PT WAS ABLE TO DO SO WITHOUT ANY PAIN OR DIFFICULTIES. BODY CHECK WAS DONE. NO BRUISING NO REDNESS NO DISCOLORATIONS NOTED. NO NEW SKIN ISSUES NOTED. PT DENIED LOOSING CONSCIOUSNESS. PT ALSO DENIED HITTING HIS HEAD. VS CHECKED T-98.7, P- 81, R- 126/82, O2 SAT-98% ON ROOM AIR. PT CONTINUED TO APOLOGIZE, STATING, "IT WAS ALL MY FAULT. I SHOULD'VE CALLED YOU TO UNHOOK ME. WONT EVER HAPPEN AGAIN." WHEN I WENT IN THE PT ROOM, THE CALL LIGHT WAS WITHIN REACH BUT WAS NOT ON, PT WAS SITTING ON HIS BED, BED WAS LOCKED AND IN LOW POSITION, SIDE RAILS UPX2, LIGHTING IN THE ROOM WAS ADEQUATE, FLOORS WERE CLEAN AND DRY AND FREE ON CLUTTER AND PT WAS WEARING NON SKID SOCKS. APPLIED BED ALARM AND REMINDED PT ONCE AGAIN TO CALL FOR ASSISTANCE IF WANTING TO GET UP FROM BED. PT AGREED.
--- NOTE | 2020-03-05 17:50 | NUR ---
PAULETTE DRAIN PAULETTE DRAIN ON R UPPER ARM SURGICAL SITE NOTED WITH 15ML DRAINAGE WHICH LOOKS LIKE A BLOOD TINGED DRAINAGE.
--- NOTE | 2020-03-05 17:55 | NUR ---
MD NOTIFICATION NOTIFIED MACY BERGERON REGARDING REPORTED FALL FROM PT. NO NEW ORDERS GIVEN.
--- NOTE | 2020-03-05 19:00 | NUR ---
Received alert and orientated. asking for jello and juice. assisted to the bathroom steady on his legs noted temp 101 tylenol given will monitor
--- NOTE | 2020-03-05 19:38 | NUR ---
MS RN CLOSING NOTES PT IN BED. AWAKE ALERT AND ORIENTED X4. NO CARDIAC OR RESPIRATORY DISTRESS NOTED. NO SOB NOTED. SATURATING WELL ON ROOM AIR. EGD WAS DONE TODAY. AWAITING FOR RESULTS. IV ACCESS NOTED ON MIDLINE IN L UNDERARM IS PATENT AND INTACT, RUNNING NS @ 75MLS/HR. NO S/S OF INFECTION OR INFILTRATION NOTED. PTS PAIN WAS MANAGED THROUGHOUT THE SHIFT. PT ALSO REPORTED THAT HE FELL, BUT IT WAS UNWITNESSED. (SEE NURSES NOTES). RE-EDUCATED PT TO ALWAYS CALL FOR HELP AND UTILIZE CALL LIGHT WHEN HE WANTS TO GET UP FROM THE BED, PT AGREED. SAFETY/FALL PRECAUTIONS IN PLACE. BED IS IN LOWEST LOCKED POSITION WITH SIDE RAILS UP X2, SEMI FOWLERS. CALL LIGHT IS WITHIN REACH. NON SKID SOCKS ON, FLOORS CLEAN AND DRY AND FREE OF CLUTTER, LIGHTING IN ROOM ADEQUATE. BED ALALRM ON. WILL ENDORSE TO NEXT SHIFT.
[2020-03-05 20:00] VITALS: BP 115/65
[2020-03-05] MEDS: ACETAMINOPHEN 325 MG TABLET PO PRN (20:04)
[2020-03-05 20:25] VITALS: BP 145/65
[2020-03-05] MEDS: INSULIN GLARGINE, 100 UNIT/ML CARTRIDGE SQ SCH (21:34)
[2020-03-05] MEDS: *INSULIN REGULAR(HUMULIN R)HUM 100 UNIT/ML VIAL SQ PRN (21:37)
[2020-03-06] MEDS: HYDROMORPHONE 1 MG/1 ML DISP.SYRIN IV PRN ×7 (02:26→18:55)
[2020-03-06] MEDS: IV NS 0.9% 1,000 ML IV PRN ×2 (04:44→16:03)
--- NOTE | 2020-03-06 05:51 | NUR ---
eNDING NOTES: REQUISTED A BEDBATH EARLY AM. LINENS CHANGED. REMAINS ALERT AND ORIENTATED, VERBALIZING HIS NEEDS. JPRATT OUTPUT SEROSANG 2 ML THIS 12 HOURS. VOIDS IN THE URINAL SLEPT WELL LAST NIGHT. ASSISTED TO THE BATHROOM STEADY ON HIS LEGS
[2020-03-06] MEDS: BLOOD SUGAR DIAGNOSTIC 1 EACH STRIP IN SCH ×4 (06:21→21:08)
[2020-03-06] MEDS: INSULIN REGULAR, HUMAN 100 UNIT/ML 3 ML VIAL SQ PRN ×3 (06:26→16:36)
[2020-03-06 08:00] VITALS: BP 123/72
--- NOTE | 2020-03-06 08:00 | NUR ---
MS RN OPENING NOTES RECEIVED PT IN BED. AWAKE ALERT AND ORIENTED X4. NO CARDIAC OR RESPIRATORY DISTRESS NOTED. NO SOB NOTED. SATURATING WELL ON ROOM AIR. IV ACCESS NOTED ON MIDLINE IN L UNDERARM IS PATENT AND INTACT, RUNNING NS @ 75MLS/HR. NO S/S OF INFECTION OR INFILTRATION NOTED. PT IS AMBULATORY, NOTED WITH STEADY GAIT, ABLE TO AMBULATE TO THE BATHROOM. BUT STILL REMINDED PT TO CALL FOR HELP AND UTILIZE CALL LIGHT WHEN HE WANTS TO GET UP FROM THE BED, ESPECIALLY IS HE IS HOOKED ON THE IV. PT AGREED. SAFETY PRECAUTIONS IN PLACE. BED IS IN LOWEST LOCKED POSITION WITH SIDE RAILS UP X2, SEMI FOWLERS. CALL LIGHT IS WITHIN REACH. BED ALARM ON. WILL CONT TO MONITOR.
[2020-03-06] MEDS: PANTOPRAZOLE 40 MG VIAL IV SCH ×2 (08:22→20:58)
[2020-03-06 09:10] LABS: BASOPHILS # (AUTO) 0.1 /CMM (0.0-0.2); HEMATOCRIT 27 % (39-51); HEMOGLOBIN 9.1 g/dL (13.5-17.5); LYMPHOCYTES # (AUTO) 2.2 /CMM (0.8-4.8); MEAN CORPUSCULAR HGB CONC 33 g/dl (31.0-36.0); MEAN CORPUSCULAR VOLUME 84 fL (80-96); MONOCYTES % (AUTO) 10.4 % (2.0-12.0); NEUTROPHILS # (AUTO) 5.5 /CMM (1.8-8.9); NEUTROPHILS % (AUTO) 58.6 % (43.0-81.0); PLATELET COUNT (AUTO) 562 /CMM (150-450); RED BLOOD CELL COUNT(AUTO) 3.25 MIL/uL (4.5-6.0); WHITE BLOOD COUNT (AUTO) 9.4 K/uL (4.3-11.0)
[2020-03-06 09:19] LABS: CALCIUM, SERUM 8.2 mg/dL (8.5-10.1); CREATININE 0.7 mg/dL (0.6-1.3); POTASSIUM 3.7 mmol/L (3.5-5.1)
--- NOTE | 2020-03-06 12:45 | NUR ---
SEEN BY DR. ROY PT WAS SEEN BY DR. ROY. ASSISTED MD BY BEDSIDE. PER DR. ROY, INCISION LOOKS GOOD. MD REMOVED PT'S PAULETTE DRAIN. DRESSINGS CHANGED BY WITH NURSES ASSISTANCE. ALSO ORDERED FOR PT EVAL.
[2020-03-06 16:00] VITALS: BP 129/72
--- NOTE | 2020-03-06 18:53 | NUR ---
MS RN CLOSING NOTES PT IN BED. AWAKE ALERT AND ORIENTED X4. NO CARDIAC OR RESPIRATORY DISTRESS NOTED. NO SOB NOTED. SATURATING WELL ON ROOM AIR. IV ACCESS NOTED ON MIDLINE IN L UNDERARM IS PATENT AND INTACT, RUNNING NS @ 75MLS/HR. NO S/S OF INFECTION OR INFILTRATION NOTED. PT'S PAIN WAS MANAGED THROUGHOUT THE SHIFT. PT IS AMBULATORY, NOTED WITH STEADY GAIT, ABLE TO AMBULATE TO THE BATHROOM. BUT STILL REMINDED PT TO CALL FOR HELP AND UTILIZE CALL LIGHT WHEN HE WANTS TO GET UP FROM THE BED, ESPECIALLY IS HE IS HOOKED ON THE IV. PT AGREED. SAFETY PRECAUTIONS IN PLACE. BED IS IN LOWEST LOCKED POSITION WITH SIDE RAILS UP X2, SEMI FOWLERS. CALL LIGHT IS WITHIN REACH. BED ALARM ON. WILL CONT TO MONITOR.
--- NOTE | 2020-03-06 19:11 | NUR ---
MS RN: RECEIVED PATIENT Patient in bed, awake, A/O x4. Tolerating room air, denies SOB. LACHO Midline. Right upper arm incision wrapped with gauze, no bleeding, patient reports pain in his right arm, per RN report patient received Dilaudid at 5 not due until 2054 as needed. Pain scale, Dilaudid indication possible side effect discussed with patient, verbalized understanding. Fall;skin precaution maintained.
[2020-03-06 20:00] VITALS: BP 115/62
[2020-03-06 20:08] VITALS: BP 115/62
[2020-03-06] MEDS: HYDROCODONE/APAP 10/325MG 1 EA TABLET PO PRN (21:03)
--- NOTE | 2020-03-06 21:09 | NUR ---
MS RN: PAIN Patient c/o right arm incision pain 7/10, PRN [place] given, will reassess. Fall precaution maintained
[2020-03-06] MEDS: INSULIN GLARGINE, 100 UNIT/ML CARTRIDGE SQ SCH (21:18)
[2020-03-06] MEDS: *INSULIN REGULAR(HUMULIN R)HUM 100 UNIT/ML VIAL SQ PRN (21:30)
[2020-03-07] MEDS: HYDROMORPHONE 1 MG/1 ML DISP.SYRIN IV PRN (00:28)
--- NOTE | 2020-03-07 00:29 | NUR ---
MS RN: PAIN Patient c/o right arm incision pain 9/10, PRN Dilaudid given, will reassess. Fall precaution maintained
[2020-03-07] MEDS: HYDROCODONE/APAP 10/325MG 1 EA TABLET PO PRN ×3 (05:21→18:54)
--- NOTE | 2020-03-07 05:31 | NUR ---
MS RN: PAIN Patient c/o right arm incision pain 7/10, PRN [place] given, will reassess. Fall precaution maintained
[2020-03-07] MEDS: BLOOD SUGAR DIAGNOSTIC 1 EACH STRIP IN SCH ×4 (06:24→21:36)
[2020-03-07] MEDS: INSULIN REGULAR, HUMAN 100 UNIT/ML 3 ML VIAL SQ PRN ×3 (06:27→16:52)
--- NOTE | 2020-03-07 06:58 | NUR ---
MS RN: END OF SHIFT REPORT Patient in bed, stable oxygenation on room air. Right arm wound incision ken intact with gauze wrap, no bleeding. Right arm pain managed with PRN [place] and PRN Dilaudid x1. IVF infusing, ambulates to the bathroom with standby assist. Contact isolation. Fall precaution maintained.
--- NOTE | 2020-03-07 07:53 | NUR ---
MS/NEGATIVE DEVELOPER Patient is resting in bed with HOB elevated, A&O x4. Patient denies any pain or discomfort at this time. [place] was last given at 0521. Patient is in RA, breathing even and unlabored, no respiratory distress or SOB noted. Right upper arm incision is wrapped with gauze, no bleeding noted. IV access noted on midline in left upper arm, intact and patent with no s/s of infiltration noted. NS running @75MLS/HR. Sensation intact from all peripheral extremities. Fall precautions maintained. Reminded patient to call for help by using the call light when getting up from bed. Patient verbalized understanding. Will continue with current medical management.
[2020-03-07 07:59] LABS: BASOPHILS # (AUTO) 0.1 /CMM (0.0-0.2); BASOPHILS % (AUTO) 1.5 % (0.0-2.0); EOSINOPHILS % (AUTO) 10.5 % (0.0-6.0); HEMATOCRIT 27 % (39-51); HEMOGLOBIN 8.7 g/dL (13.5-17.5); LYMPHOCYTES # (AUTO) 1.7 /CMM (0.8-4.8); LYMPHOCYTES % (AUTO) 22.5 % (20.0-44.0); MEAN CORPUSCULAR HGB CONC 33 g/dl (31.0-36.0); MEAN CORPUSCULAR VOLUME 84 fL (80-96); MONOCYTES # (AUTO) 0.9 /CMM (0.1-1.30); NEUTROPHILS # (AUTO) 4.2 /CMM (1.8-8.9); NEUTROPHILS % (AUTO) 53.5 % (43.0-81.0); PLATELET COUNT (AUTO) 565 /CMM (150-450); RED BLOOD CELL COUNT(AUTO) 3.17 MIL/uL (4.5-6.0); WHITE BLOOD COUNT (AUTO) 7.8 K/uL (4.3-11.0)
[2020-03-07 08:00] VITALS: BP 128/75
[2020-03-07 08:09] LABS: CALCIUM, SERUM 8.2 mg/dL (8.5-10.1); CREATININE 0.6 mg/dL (0.6-1.3); POTASSIUM 3.7 mmol/L (3.5-5.1)
[2020-03-07] MEDS: PANTOPRAZOLE 40 MG VIAL IV SCH ×2 (08:27→21:36)
[2020-03-07] MEDS: DABIGATRAN ETEXILATE MESYLATE 150 MG CAPSULE PO SCH ×2 (09:07→16:55)
--- NOTE | 2020-03-07 12:47 | NUR ---
/JOSIE Pain Patient c/o 07/21 right arm incision pain. Administed Ingris GRULLON, will reassess. Addendum: 03/07/20 at 1810 by VALERIE ONEAL RN Patient c/o 04/20 right arm incision pain. Administered Ingris GRULLON, will reasses.
[2020-03-07 16:00] VITALS: BP 121/81
--- NOTE | 2020-03-07 18:25 | NUR ---
MS/RN Patient resting in bed, A&O x4. No SOB/respiratory distress noted. Breathing even and non-labored on RA. VSS, afebrile. As of 1729, patients blood sugar is at 189 and was given 4 units of regular insulin. Patients pain was managed through the shift. [place] PRN was last given at 1247 with a reported right arm incisional pain of 7/10. IV access noted on the left upper arm on midline, patent and intact, and flushing well. No s/s of infection or infiltration noted. No bleeding noted. Fall precautions maintained, reminded patient to call for help and use the call light whenever he wants to get up from bed. Patient verbalized understanding. Contact precautions maintained r/t MRSA wound. Will endorse to the slot shift supervisor nurse.
--- NOTE | 2020-03-07 19:35 | NUR ---
RN OPENING NOTES RECEIVED REPORT FROM DAYSHIFT RN. FOUND Pt ASLEEP, RESTING IN BED. NO S/S OF ACUTE DISTRESS OR SOB NOTED AT THIS TIME. NO SIGNS OF DISCOMFORT OR PAIN NOTED AT THIS TIME. PER REPORT Pt IS A/OX4, VERBAL, ABLE TO MAKE NEEDS KNOWN. IV ACCESS ON LACHO MIDLINE, SL. PER REPORT S/P Rt ABOVE ELBOW AMPUTATION ON THE 03/[address] ROY. SAFETY MEASURES IN PLACE. BED LOW, LOCKED, HOB ELEVATED, SIDE RAILS UP, CALL LIGHT AND BEDSIDE TABLE WITHIN REACH ON LEFT SIDE. WILL CONTINUE TO MONITOR Pt's CONDITION AND SAFETY THROUGHOUT THE NIGHT.
[2020-03-07 20:00] VITALS: BP 120/62
[2020-03-07 20:30] VITALS: BP 120/62
[2020-03-07] MEDS: INSULIN GLARGINE, 100 UNIT/ML CARTRIDGE SQ SCH (21:50)
[2020-03-07] MEDS: *INSULIN REGULAR(HUMULIN R)HUM 100 UNIT/ML VIAL SQ PRN (21:54)
--- NOTE | 2020-03-07 21:55 | NUR ---
RN NOTES HS BG 203. ADMINISTERED SCHEDULED DOSE OF 38UN OF LANTUS. WITH ADDITIONAL INSULIN COVERAGE OF 4UN PER HS SLIDIDNG SCALE.
[2020-03-08] MEDS: HYDROCODONE/APAP 10/325MG 1 EA TABLET PO PRN ×4 (02:37→21:13)
[2020-03-08] MEDS: BLOOD SUGAR DIAGNOSTIC 1 EACH STRIP IN SCH ×4 (06:26→21:12)
[2020-03-08] MEDS: INSULIN REGULAR, HUMAN 100 UNIT/ML 3 ML VIAL SQ PRN ×3 (06:30→16:58)
--- NOTE | 2020-03-08 06:30 | NUR ---
RN NOTES AC BG 167. ADMINISTERED 4UN OF INSULIN PER SLIDING SCALE.
[2020-03-08 06:38] LABS: CALCIUM, SERUM 8.8 mg/dL (8.5-10.1); CREATININE 0.6 mg/dL (0.6-1.3); POTASSIUM 3.4 mmol/L (3.5-5.1)
[2020-03-08 06:43] LABS: BASOPHILS # (AUTO) 0.1 /CMM (0.0-0.2); BASOPHILS % (AUTO) 0.8 % (0.0-2.0); EOSINOPHILS % (AUTO) 9.8 % (0.0-6.0); HEMATOCRIT 29 % (39-51); HEMOGLOBIN 9.2 g/dL (13.5-17.5); LYMPHOCYTES # (AUTO) 2.1 /CMM (0.8-4.8); LYMPHOCYTES % (AUTO) 23.2 % (20.0-44.0); MEAN CORPUSCULAR HGB CONC 32 g/dl (31.0-36.0); MEAN CORPUSCULAR VOLUME 84 fL (80-96); MONOCYTES # (AUTO) 0.9 /CMM (0.1-1.30); MONOCYTES % (AUTO) 10.4 % (2.0-12.0); NEUTROPHILS % (AUTO) 55.8 % (43.0-81.0); PLATELET COUNT (AUTO) 657 /CMM (150-450); WHITE BLOOD COUNT (AUTO) 8.9 K/uL (4.3-11.0)
--- NOTE | 2020-03-08 07:13 | NUR ---
RN CLOSING NOTES NO SIGNIFICANT CHANGES IN Pt's CONDITION. Pt REMAINED STABLE PER BASELINE. NO S/S OF ACUTE DISTRESS OR SOB NOTED DURING THE NIGHT. ALL NEEDS MET AND ATTENDED. SAFETY MEASURES IN PLACE. Pt IS RESTING COMFORTABLY IN BED. WILL ENDORSE TO DAYSHIFT RN FOR Pt's AVERY.
--- NOTE | 2020-03-08 07:30 | NUR ---
MS/RN OPENING NOTES Patient is resting in bed with HOB elevated, A&O x4. Patient denies any pain or discomfort at this time. [place] was last given at 0237. Breathing even and unlabored on RA, no SOB noted. No respiratory or cardiac distress noted. Right upper arm incision is wrapped with gauze, no bleeding noted. IV access noted on midline in left upper arm, intact and patent with no s/s of infiltration noted, flushing well. Sensation intact from all peripheral extremities. Fall precautions maintained. Reminded patient to call for help by using the call light when getting up from bed. Patient verbalized understanding. Will continue with current medical management.
[2020-03-08 08:05] VITALS: BP 127/71
[2020-03-08] MEDS: DABIGATRAN ETEXILATE MESYLATE 150 MG CAPSULE PO SCH ×2 (08:16→16:58)
[2020-03-08] MEDS: PANTOPRAZOLE 40 MG VIAL IV SCH ×2 (08:16→21:12)
[2020-03-08] MEDS ORDERED: POTASSIUM CHLORIDE 20 MEQ TAB.PRT.SR PO SCH (09:30)
[2020-03-08 16:00] VITALS: BP 132/82
--- NOTE | 2020-03-08 18:13 | NUR ---
MS/RN CLOSING NOTES Patient is sitting on chair, A&O x 4. Patient rates 10/10 to 7/10 aching pain on the BLE, after taking new PRN medication at 1313, Percocet 5/325 mg, and states how that he feels a lot better from the pain endured before. VSS, afebrile, no SOB noted. No respiratory or cardiac distress noted. IV access noted on midline in left upper arm, intact and patent with no s/s of infiltration noted, flushing well. Ta catheter in place. All needs are met and attended. Fall precautions maintained. Will continue with current medical management. Addendum: 03/08/20 at 1825 by VALERIE ONEAL RN DISREGARD NOTES ABOVE, WRONG PATIENT NOTED. MS/RN CLOSING NOTES Patient is sleeping in bed. Patient states he does not want to be disturbed when asleep. VSS, afebrile, no SOB noted. No respiratory or cardiac distress noted. Right upper arm incision is wrapped with gauze, no bleeding noted. IV access noted on midline in left upper arm, intact and patent with no s/s of infiltration noted, flushing well. All needs are met and attended. Fall precautions maintained. Will continue with current medical management.
[2020-03-08] MEDS: ACETAMINOPHEN 325 MG TABLET PO PRN (19:31)
--- NOTE | 2020-03-08 19:45 | NUR ---
RN OPENING NOTES RECEIVED REPORT FROM DAYSHIFT RN. FOUND Pt AWAKE, RESTING IN BED, WATCHING TV. NO S/S OF ACUTE DISTRESS OR SOB NOTED AT THIS TIME. PER REPORT Pt IS A/OX4, VERBAL, ABLE TO MAKE NEEDS KNOWN. IV ACCESS ON LACHO MIDLINE, SL. S/P Rt ABOVE ELBOW AMPUTATION ON THE 03/[address] ROY. Pt IS REQUESTING FOR TYLENOL AT THIS TIME. SAFETY MEASURES IN PLACE. BED LOW, LOCKED, HOB ELEVATED, SIDE RAILS UP, CALL LIGHT AND BEDSIDE TABLE WITHIN REACH ON LEFT SIDE. WILL CONTINUE TO MONITOR Pt's CONDITION AND SAFETY THROUGHOUT THE NIGHT.
[2020-03-08 20:00] VITALS: BP 119/50
[2020-03-08 20:30] VITALS: BP 119/50
[2020-03-08] MEDS: INSULIN GLARGINE, 100 UNIT/ML CARTRIDGE SQ SCH (21:18)
[2020-03-08] MEDS: *INSULIN REGULAR(HUMULIN R)HUM 100 UNIT/ML VIAL SQ PRN (21:19)
--- NOTE | 2020-03-08 21:28 | NUR ---
RN NOTES BG 288. ADMINISTERED SCHEDULED 38UN OF LANTUS WITH ADDITIONAL REG INSULIN COVERAGE OF 6UN PER HS SLIDIDNG SCALE
[2020-03-09] MEDS: HYDROCODONE/APAP 10/325MG 1 EA TABLET PO PRN ×4 (03:14→21:01)
[2020-03-09] MEDS: BLOOD SUGAR DIAGNOSTIC 1 EACH STRIP IN SCH ×4 (06:03→21:41)
--- NOTE | 2020-03-09 06:04 | NUR ---
RN NOTES AC BG 85. NO INSULIN COVERAGE NEEDED AT THIS TIME.
[2020-03-09] MEDS: ACETAMINOPHEN 325 MG TABLET PO PRN (06:16)
[2020-03-09 07:32] LABS: CALCIUM, SERUM 9.1 mg/dL (8.5-10.1); CREATININE 0.7 mg/dL (0.6-1.3); POTASSIUM 3.9 mmol/L (3.5-5.1)
[2020-03-09 07:33] LABS: BASOPHILS # (AUTO) 0.1 /CMM (0.0-0.2); BASOPHILS % (AUTO) 1.4 % (0.0-2.0); EOSINOPHILS % (AUTO) 8.9 % (0.0-6.0); HEMATOCRIT 34 % (39-51); HEMOGLOBIN 10.8 g/dL (13.5-17.5); LYMPHOCYTES # (AUTO) 2.7 /CMM (0.8-4.8); LYMPHOCYTES % (AUTO) 26.7 % (20.0-44.0); MEAN CORPUSCULAR HGB CONC 32 g/dl (31.0-36.0); MEAN CORPUSCULAR VOLUME 84 fL (80-96); MONOCYTES # (AUTO) 1.2 /CMM (0.1-1.30); MONOCYTES % (AUTO) 11.9 % (2.0-12.0); NEUTROPHILS # (AUTO) 5.1 /CMM (1.8-8.9); NEUTROPHILS % (AUTO) 51.1 % (43.0-81.0); PLATELET COUNT (AUTO) 751 /CMM (150-450); RED BLOOD CELL COUNT(AUTO) 4.02 MIL/uL (4.5-6.0)
[2020-03-09 08:00] VITALS: BP 124/68
[2020-03-09 08:03] VITALS: BP 124/68
[2020-03-09] MEDS: PANTOPRAZOLE 40 MG VIAL IV SCH ×2 (08:58→21:01)
[2020-03-09] MEDS: DABIGATRAN ETEXILATE MESYLATE 150 MG CAPSULE PO SCH ×2 (09:00→16:56)
[2020-03-09] MEDS: INSULIN REGULAR, HUMAN 100 UNIT/ML 3 ML VIAL SQ PRN ×2 (11:36→16:55)
[2020-03-09 16:00] VITALS: BP 114/71
--- NOTE | 2020-03-09 18:17 | NUR ---
Patient awake alert and oriented x3, stable on room air, med compliant. Right upper arm dressing changed. Pain med administrated as needed. Midline intact and patent , flushing well, HL. Gait stable and able to use bathroom. All needs attended. Placement is pending. Will endorse to next shift for AVERY
--- NOTE | 2020-03-09 19:29 | NUR ---
MS RN OPENING NOTES PATIENT RECEIVED RESTING IN BED A/O X 4. STABLE ON RA WITH BREATHING EVEN AND UNLABORED, NO SOB NOTED. NO SIGNS OF ACUTE DISTRESS. COMPLAINTS OF TOLERABLE PAIN ON R EXTREMITY. MIDLINE ON LACHO EXTREMITY SL. SAFETY PRECAUTIONS IN PLACE WITH BED IN LOWEST POSITION, CALL LIGHT WITHIN REACH, BREAKS ON, SIDE RAILS UP. WILL CONTINUE TO MONITOR THROUGHOUT THE NIGHT.
[2020-03-09 20:00] VITALS: BP 112/68
[2020-03-09] MEDS: INSULIN GLARGINE, 100 UNIT/ML CARTRIDGE SQ SCH (21:10)
[2020-03-09] MEDS: *INSULIN REGULAR(HUMULIN R)HUM 100 UNIT/ML VIAL SQ PRN (21:15)
[2020-03-10] MEDS: HYDROCODONE/APAP 10/325MG 1 EA TABLET PO PRN ×3 (02:57→21:00)
[2020-03-10] MEDS: BLOOD SUGAR DIAGNOSTIC 1 EACH STRIP IN SCH ×4 (06:35→22:18)
[2020-03-10] MEDS: INSULIN REGULAR, HUMAN 100 UNIT/ML 3 ML VIAL SQ PRN ×3 (06:37→16:49)
--- NOTE | 2020-03-10 07:07 | NUR ---
MS RN CLOSING NOTES PATIENT RESTING IN BED A/O X 4. STABLE ON RA WITH BREATHING EVEN AND UNLABORED, NO SOB NOTED. NO SIGNS OF ACUTE DISTRESS. COMPLAINTS OF TOLERABLE PAIN ON R EXTREMITY. MIDLINE ON LACHO EXTREMITY SL. SAFETY PRECAUTIONS IN PLACE WITH BED IN LOWEST POSITION, CALL LIGHT WITHIN REACH, BREAKS ON, SIDE RAILS UP. ALL NEEDS ATTENDED TO THROUGHOUT THE NIGHT. WILL ENDORSE TO ONCOMING SHIFT ABOUT AVERY.
--- NOTE | 2020-03-10 07:35 | NUR ---
MS RN OPENING NOTE PATIENT IN BED RESTING COMFORTABLY. PATIENT IN NO ACUTE DISTRESS. NO SOB NOTED. PATIENT BREATHING IS EVEN AND UNLABORED. SAFETY PRECAUTIONS IN PLACE. PATIENT BED IS LOCKED AND IN LOWEST POSITION. CALL LIGHT WITHIN REACH. WILL CONTINUE TO MONITOR.
[2020-03-10 08:00] VITALS: BP 108/77
[2020-03-10] MEDS: PANTOPRAZOLE 40 MG VIAL IV SCH ×2 (08:09→20:23)
[2020-03-10] MEDS: DABIGATRAN ETEXILATE MESYLATE 150 MG CAPSULE PO SCH ×2 (08:10→16:43)
[2020-03-10] MEDS ORDERED: DABI150C PO (10:09)
[2020-03-10] MEDS ORDERED: INSU100V39 SQ (10:09)
[2020-03-10] MEDS ORDERED: INSU100V7 SQ (10:09)
--- NOTE | 2020-03-10 15:37 | NUR ---
MS RN NOTE PATIENT REFUSING TO HAVE WOUND CARE PERFORMED. PATIENT STATED " I DONT WANT YOU TO DO ANYTHING PLEASE, THANK YOU FOR TRYING BUT I AM REFUSING. IT HURTS AND IRRITATES I DONT WANT YOU TO CHANGE ANYTHING TODAY". EDUCATED RISKS VS BENEFITS AND THE IMPORTANCE OF CHANGING DRESSING 3X. PATIENT CONTINUED TO REFUSE.
[2020-03-10 16:00] VITALS: BP 126/73
--- NOTE | 2020-03-10 18:42 | NUR ---
MS RN CLOSING NOTE PATIENT IN BED RESTING COMFORTABLY. PATIENT IN NO ACUTE DISTRESS. NO SOB NOTED. PATIENT BREATHING IS EVEN AND UNLABORED. PATIENT STATES NO PAIN AT THIS TIME. NEEDS AND CONCERNS ADDRESSED. SAFETY PRECAUTIONS IN PLACE. PATIENT BED IS LOCKED AND IN LOWEST POSITION. CALL LIGHT WITHIN REACH. WILL ENDORSE CARE TO PM SHIFT FOR AVERY.
[2020-03-10 20:00] VITALS: BP 112/68
--- NOTE | 2020-03-10 20:00 | NUR ---
RN NOTES RECEIVED PT. AWAKE ON BED, A/OX4, S/P RIGHT ELBOW AMPUTATION, DRESSING IS INTACT, DENIES PAIN AT THIS TROY, NO SOB, CALL LIGHT WITHIN REACH, [id number], CONTINUE TO MONITOR
--- NOTE | 2020-03-10 21:00 | NUR ---
RN NOTES COMPLAINED OF RIGHT ARM PAIN- NORCO 10/325MG PO GIVEN ORDERED, V/S STABLE
[2020-03-10] MEDS: *INSULIN REGULAR(HUMULIN R)HUM 100 UNIT/ML VIAL SQ PRN (21:02)
[2020-03-10] MEDS: INSULIN GLARGINE, 100 UNIT/ML CARTRIDGE SQ SCH (21:03)
[2020-03-11] MEDS: HYDROCODONE/APAP 10/325MG 1 EA TABLET PO PRN ×3 (03:55→18:21)
--- NOTE | 2020-03-11 04:03 | NUR ---
RN NOTES COMPLAINED OF RIGHT ARM PAIN- NORCO 10/325MG PO GIVEN ORDERED, V/S STABLE
[2020-03-11] MEDS: INSULIN REGULAR, HUMAN 100 UNIT/ML 3 ML VIAL SQ PRN ×3 (06:16→16:47)
[2020-03-11] MEDS: BLOOD SUGAR DIAGNOSTIC 1 EACH STRIP IN SCH ×4 (06:17→21:35)
--- NOTE | 2020-03-11 06:26 | NUR ---
RN NOTES AWAKE, PAIN ON THE RIGHT ARM IS TOLERABLE AT THIS TIME, NO SOB, CALL LIGHT WITHIN REACH, [id number], PT. NEEDS ATTENDED
[2020-03-11 08:00] VITALS: BP 119/81
[2020-03-11] MEDS: DABIGATRAN ETEXILATE MESYLATE 150 MG CAPSULE PO SCH ×2 (09:10→16:47)
[2020-03-11] MEDS: PANTOPRAZOLE 40 MG VIAL IV SCH ×2 (09:10→21:35)
[2020-03-11 16:00] VITALS: BP 132/84
--- NOTE | 2020-03-11 18:27 | NUR ---
MS RN CLOSING NOTE PATIENT IN BED RESTING COMFORTABLY. PATIENT IN NO ACUTE DISTRESS. NO SOB NOTED. PATIENT BREATHING IS EVEN AND UNLABORED. PATIENT STATES NO PAIN AT THIS TIME. WOUND CARE PROVIDED ORDERED. NEEDS AND CONCERNS ADDRESSED. SAFETY PRECAUTIONS IN PLACE. PATIENT BED IS LOCKED AND IN LOWEST POSITION. CALL LIGHT WITHIN REACH. WILL ENDORSE CARE TO PM SHIFT FOR AVERY.
--- NOTE | 2020-03-11 19:30 | NUR ---
MS RN OPENING NOTE RECEIVED PATIENT IN BED. A/OX 4. TOLERATING ROOM AIR, RESPIRATIONS ARE EVEN AND UNLABORED. NO S/S SOB NOTED. NO C/O PAIN AT THIS TIME. IN NO APPARENT DISTRESS. IV ACCESS IN LACHO MIDLINE PATENT AND SALINE LOCKED. BED IS LOW AND LOCKED HOB ELEVATED IN HIGH FOWLERS, SIDE RIALS UP X2. CALL LIGHT WITHIN REACH. WILL CONTINUE TO MONITOR.
[2020-03-11 20:00] VITALS: BP 112/68
[2020-03-11] MEDS: INSULIN GLARGINE, 100 UNIT/ML CARTRIDGE SQ SCH (21:44)
[2020-03-11] MEDS: *INSULIN REGULAR(HUMULIN R)HUM 100 UNIT/ML VIAL SQ PRN (21:46)
[2020-03-12] MEDS: HYDROCODONE/APAP 10/325MG 1 EA TABLET PO PRN ×3 (00:25→14:47)
--- NOTE | 2020-03-12 00:26 | NUR ---
ms rn note administered prn norco 10/325 for pain 04/20 in [facility]. will continue to monitor.
--- NOTE | 2020-03-12 06:54 | NUR ---
MS RN CLOSING NOTE PATIENT IN BED. A/OX 4. REMAINS TOLERATING ROOM AIR, RESPIRATIONS ARE EVEN AND UNLABORED. NO SOB NOTED. NO DISTRESS. IV ACCESS MAINTAINED IN LACHO MIDLINE PATENT AND SALINE LOCKED. BED REMAINS LOW AND LOCKED HOB ELEVATED IN HIGH FOWLERS, SIDE RIALS UP X2. CALL LIGHT WITHIN REACH. WILL ENDORSE TO NEXT SHIFT.
--- NOTE | 2020-03-12 07:34 | NUR ---
MS RN OPENING NOTES RECEIVED PATIENT IN BED, AWAKE, A/O X4. PATIENT IS ON ROOM AIR; BREATHING IS EVEN AND UNLABORED; NO SOB PRESENT AT THIS TIME. MILD, TOLERABLE PAIN. PATIENT WITH A MIDLINE AT LACHO, SL; FLUSHING WELL. SAFETY PRECAUTIONS IN PLACE; BED IN LOW POSITION AND LOCKED, RAILS UP X2, CALL LIGHT WITHIN REACH. WILL CONTINUE TO MONITOR PATIENT.
[2020-03-12] MEDS: BLOOD SUGAR DIAGNOSTIC 1 EACH STRIP IN SCH ×4 (07:45→22:21)
[2020-03-12 08:00] VITALS: BP 118/78
[2020-03-12] MEDS: PANTOPRAZOLE 40 MG VIAL IV SCH ×2 (08:14→22:21)
[2020-03-12] MEDS: DABIGATRAN ETEXILATE MESYLATE 150 MG CAPSULE PO SCH ×2 (08:17→17:30)
[2020-03-12] MEDS: INSULIN REGULAR, HUMAN 100 UNIT/ML 3 ML VIAL SQ PRN ×2 (08:31→17:32)
--- NOTE | 2020-03-12 08:39 | NUR ---
MS RN NOTES TOOK OUT MORNING MEDICATIONS; WHEN I OPENED PRODAXA THE PILL WAS BROKEN AND GRANULES FREE. SHOWED CHARGE NURSE AND DISPOSED IT IN THE PHARMACY CONTAINER. CALLED THE PHARMACY AND NOTIFIED. TOOK ONE MORE MEDICATION FOR ADMINISTRATION.
[2020-03-12 16:00] VITALS: BP 127/69
--- NOTE | 2020-03-12 18:44 | NUR ---
MS RN CLOSING NOTES PATIENT REMAINS IN BED, ASLEPP AT THIS TIME. PATIENT ON ROOM AIR; BREATHING IS EVEN AND UNLABORED; NO SOB PRESENT AT THIS TIME. MILD, TOLERABLE PAIN. PAIN TREATED THROUGHOUT THE DY WITH PRN MEDICATIONS. PATIENT WITH A MIDLINE AT LACHO, SL; FLUSHING WELL. ALL NEEDS ATTENDED TO THROUGHOUT THE DAY. SAFETY PRECAUTIONS REMAIN IN PLACE; BED IN LOW POSITION AND LOCKED, RAILS UP X2, CALL LIGHT WITHIN REACH. WILL ENDORSE TO PRISONER CLASSIFICATION INTERVIEWER NURSE.
--- NOTE | 2020-03-12 19:30 | NUR ---
MS RN OPENING NOTE RECEIVED PATIENT IN BED. A/OX 4. TOLERATING ROOM AIR, RESPIRATIONS ARE EVEN AND UNLABORED. NO S/S SOB NOTED. INFORMED WILL ADMINISTER PAIN MEDICATION SOON AVAILABLE. IN NO APPARENT DISTRESS. IV ACCESS IN LACHO MIDLINE PATENT AND SALINE LOCKED. BED IS LOW AND LOCKED HOB ELEVATED IN HIGH FOWLERS, SIDE RIALS UP X2. CALL LIGHT WITHIN REACH. WILL CONTINUE TO MONITOR.
[2020-03-12 20:00] VITALS: BP 118/70
[2020-03-12 20:16] VITALS: BP 118/70
--- NOTE | 2020-03-12 22:21 | NUR ---
MS GALINDO NOTE ADMINISTERED MITCHEL SANTOS FOR PAIN 04/20 IN [facility]. WILL CONTINUE TO MONITOR. Addendum: 03/13/20 at 0446 by MARIO LAGOS RN SCANNED MEDICATION BUT COMPUTER AND DID NOT RECORD THE MEDICATION ADMINISTRATION. WILL CALL PHARMACY IN AM. Addendum: 03/13/20 at 0700 by MARIO LAGOS RN CALLED PHARMACY , INFORMED ME TO ELVISO [id number] MEDICATION ADMINISTRATION AND MANUALL ENTER ADMINISTRATION FOR [id number] AND [id number]. WILL TRY.
[2020-03-12] MEDS: INSULIN GLARGINE, 100 UNIT/ML CARTRIDGE SQ SCH (22:22)
[2020-03-12] MEDS: *INSULIN REGULAR(HUMULIN R)HUM 100 UNIT/ML VIAL SQ PRN (22:23)
[2020-03-13] MEDS: HYDROCODONE/APAP 10/325MG 1 EA TABLET PO PRN ×4 (04:57→19:55)
--- NOTE | 2020-03-13 04:57 | NUR ---
MS RN NOTE ADMINISTERED PRN NORCO 10/325 FOR PAIN 7/10 IN RIGHT ARM AMPUTATION. WILL CONTINUE TO MONITOR.
[2020-03-13] MEDS: BLOOD SUGAR DIAGNOSTIC 1 EACH STRIP IN SCH ×4 (06:01→21:17)
[2020-03-13] MEDS: INSULIN REGULAR, HUMAN 100 UNIT/ML 3 ML VIAL SQ PRN ×3 (06:07→17:09)
--- NOTE | 2020-03-13 06:36 | NUR ---
MS RN CLOSING NOTE PATIENT IN BED. A/OX 4. TOLERATING ROOM AIR, RESPIRATIONS ARE EVEN AND UNLABORED. NO SOB NOTED. ADMINISTERED NORCO 10/325 FOR PAIN. NO DISTRESS. IV ACCESS MAINTAINED IN LACHO MIDLINE PATENT AND SALINE LOCKED. BED REMAINS LOW AND LOCKED HOB ELEVATED IN HIGH FOWLERS, SIDE RIALS UP X2. CALL LIGHT WITHIN REACH. WILL ENDORSE TO NEXT SHIFT
--- NOTE | 2020-03-13 07:05 | NUR ---
MS RN NOTE FOR PHARMACY INFORMED PHARMACY I AM NOT ABLE TO UNDO THE ADMINISTRATION AND ENTER THE ADMINISTRATION FOR THE EARLIER MISSED DOSE AT 2221 WHEN THE COMPUTER LIKE INSTRUCTED TO. PER PHARMACY: ENTER AN ADMINISTRATION OF THE MEDICATION NOW AGAIN AND NOTE THAT THIS IS THE ADMINISTRATION FOR THE MISSING MEDICATION ADMINISTRATION GIVEN AT 2221, TO DOCUMENT I DID GIVE THE DOSE AND DID NOT HOLD ONTO THE MEDICATION. THIS SHIFT I GAVE A DOSE OF NORCO 10/325 AT 2221 AND AT 0457. I WILL INFORM MORNING RN.
--- NOTE | 2020-03-13 07:27 | NUR ---
MS RN NOTE RECEIVED PATIENT IN BED RESTING COMFORTABLY IN MODERATE HIGH BACK REST. A/OX 4. TOLERATING ROOM AIR, RESPIRATIONS ARE EVEN AND UNLABORED. NO SIGNS OF DISTRESS NOTED AT THIS TIME. IV ACCESS MAINTAINED IN LACHO MIDLINE PATENT AND SALINE LOCKED. SAFETY MEASURES IN PLACE, BED REMAINS LOW AND LOCKED, SIDE RIALS UP X2. CALL LIGHT WITHIN REACH. WILL CONTINUE TO MONITOR.
[2020-03-13 08:00] VITALS: BP 135/74
[2020-03-13 08:01] VITALS: BP 120/81
[2020-03-13] MEDS: PANTOPRAZOLE 40 MG VIAL IV SCH ×2 (08:25→21:17)
[2020-03-13] MEDS: DABIGATRAN ETEXILATE MESYLATE 150 MG CAPSULE PO SCH ×2 (08:25→17:05)
--- NOTE | 2020-03-13 11:36 | NUR ---
RN NOTES CALLED PHARMACY REGARDING THE NORCO FOR PATIENT, THERE IS A DISCREPANCY LAST NIGHT, PHARMACY IS AWARE, SPOKE TO LAISHA AND SAID IT IS OKAY TO GET THE MEDICATION.
[2020-03-13 16:00] VITALS: BP 117/74
--- NOTE | 2020-03-13 18:31 | NUR ---
MS RN NOTES PATIENT IN BED RESTING COMFORTABLY IN MODERATE HIGH BACK REST. A/OX 4. TOLERATING ROOM AIR, RESPIRATIONS ARE EVEN AND UNLABORED. NO SIGNS OF DISTRESS NOTED THROUGHOUT THE SHIFT. IV ACCESS MAINTAINED IN LACHO MIDLINE PATENT AND SALINE LOCKED. SAFETY MEASURES IN PLACE, BED REMAINS LOW AND LOCKED, SIDE RIALS UP X2. CALL LIGHT WITHIN REACH. WILL ENDORSE TO MANAGER MECHANICAL NURSE FOR AVERY.
--- NOTE | 2020-03-13 19:56 | NUR ---
MS RN NOTE ADMINISTERED PRN NORCO 10/325 FOR PAIN 10 /10 IN RIGHT AMPUTATED ARM. WILL CONTINUE TO MONITOR.
[2020-03-13 20:00] VITALS: BP 120/76
[2020-03-13] MEDS: INSULIN GLARGINE, 100 UNIT/ML CARTRIDGE SQ SCH (21:28)
[2020-03-13] MEDS: *INSULIN REGULAR(HUMULIN R)HUM 100 UNIT/ML VIAL SQ PRN (21:31)
[2020-03-14] MEDS: BLOOD SUGAR DIAGNOSTIC 1 EACH STRIP IN SCH ×4 (06:05→21:35)
[2020-03-14] MEDS: INSULIN REGULAR, HUMAN 100 UNIT/ML 3 ML VIAL SQ PRN ×3 (06:08→17:41)
[2020-03-14] MEDS: HYDROCODONE/APAP 10/325MG 1 EA TABLET PO PRN ×2 (06:09→20:12)
--- NOTE | 2020-03-14 06:09 | NUR ---
ms rn note administered prn norco 10/325 for pain 10/10 will continue to monitor.
[2020-03-14 08:00] VITALS: BP 118/83
--- NOTE | 2020-03-14 08:00 | NUR ---
MS RN NOTES PATIENT IN BED RESTING NO SOB OR ACUTE DISTRESS NOTED. PATIENT ALERT, ORIENTED X4. PATIENT WITH SURGICAL WOUND ON THE RIGHT ARM OPEN TO AIR. PER [employer] PATIENT REFUSED DRESSING SINCE IT CAME OF. BED IN LOW LOCKED POSITION. CALL LIGHT WITHIN REACH. SAFETY MEASURES IN PLACE WILL CONTINUE TO MONITOR.
[2020-03-14] MEDS: PANTOPRAZOLE 40 MG VIAL IV SCH ×2 (09:16→20:11)
[2020-03-14] MEDS: DABIGATRAN ETEXILATE MESYLATE 150 MG CAPSULE PO SCH ×2 (09:17→17:22)
--- NOTE | 2020-03-14 10:16 | NUR ---
LINE DEPARTMENT SUPERVISOR contacted [facility] [place] office and spoke with Agent Dre since pt's juvenile probation officer Mr. Reese was not available. LINE DEPARTMENT SUPERVISOR informed Agent Dre, pt is hospitalized at [facility] since February 14, 2020 and left a contact number. Agent Dre will informed chief quality officer Mr. Reese with aforementioned information. LINE DEPARTMENT SUPERVISOR updated [facility]IN Collier and requested for her to update Dr. Kirkpatrick and RN Reina. Medical Job Setter to be available for support as needed.
--- NOTE | 2020-03-14 12:52 | NUR ---
[facility] received a call back from pt's chief security officer Agent Hugh "Mr Vazquez". MINE SURVEYOR updated him regarding pt's plan of care and notified him that pt will be going to a congregate or detention once medically cleared. [facility] will call Agent Hugh and update him regarding the name and location of pt's placement once available.
--- NOTE | 2020-03-14 15:00 | NUR ---
MS RN NOTES PATIENT REFUSED WOUND CARE, STATES IF HIS WOUND GETS WRAPPED HE WILL JUST REMOVE IT. DESPITE EXPLANATION OF RISKS AND BENEFITS PATIENT REFUSED WOUND CARE. MD AWARE WILL CONTINUE TO MONITOR.
[2020-03-14 16:00] VITALS: BP 117/84
--- NOTE | 2020-03-14 19:24 | NUR ---
MS RN OPENING NOTE RECEIVED PATIENT IN BED. A/OX 4. TOLERATING ROOM AIR, RESPIRATIONS ARE EVEN AND UNLABORED. NO S/S SOB NOTED. C/O PAIN WILL ADMINISTER SOON ABLE TO. IN NO APPARENT DISTRESS. IV ACCESS IN LACHO MIDLINE PATENT AND SALINE LOCKED. BED IS LOW AND LOCKED HOB ELEVATED IN HIGH FOWLERS, SIDE RIALS UP X2. CALL LIGHT WITHIN REACH. WILL CONTINUE TO MONITOR
--- NOTE | 2020-03-14 19:31 | NUR ---
MS RN NOTES PATIENT IN BED RESTING NO SOB OR ACUTE DISTRESS NOTED. ALL DUE MEDICATIONS ADMINISTERED. ALL NEEDS MET. NO ACUTE CHANGES NOTED DURING SHIFT. WILL ENDORSE CARE TO PM SHIFT.
[2020-03-14 20:00] VITALS: BP 129/79
--- NOTE | 2020-03-14 20:12 | NUR ---
ms rn note administered prn norco 10/325 for pain 10/10 in right arm. will continue to monitor.
[2020-03-14] MEDS: *INSULIN REGULAR(HUMULIN R)HUM 100 UNIT/ML VIAL SQ PRN (21:38)
[2020-03-14] MEDS: INSULIN GLARGINE, 100 UNIT/ML CARTRIDGE SQ SCH (21:38)
[2020-03-15] MEDS: BLOOD SUGAR DIAGNOSTIC 1 EACH STRIP IN SCH ×4 (06:03→22:02)
[2020-03-15] MEDS: INSULIN REGULAR, HUMAN 100 UNIT/ML 3 ML VIAL SQ PRN ×3 (06:05→16:45)
[2020-03-15 06:15] LABS: BASOPHILS # (AUTO) 0.1 /CMM (0.0-0.2); BASOPHILS % (AUTO) 1.3 % (0.0-2.0); EOSINOPHILS % (AUTO) 5.6 % (0.0-6.0); HEMATOCRIT 32 % (39-51); HEMOGLOBIN 10.2 g/dL (13.5-17.5); LYMPHOCYTES # (AUTO) 2.4 /CMM (0.8-4.8); LYMPHOCYTES % (AUTO) 25.3 % (20.0-44.0); MEAN CORPUSCULAR HGB CONC 32 g/dl (31.0-36.0); MEAN CORPUSCULAR VOLUME 82 fL (80-96); MONOCYTES # (AUTO) 1.3 /CMM (0.1-1.30); MONOCYTES % (AUTO) 14.1 % (2.0-12.0); NEUTROPHILS % (AUTO) 53.7 % (43.0-81.0); PLATELET COUNT (AUTO) 699 /CMM (150-450); RED BLOOD CELL COUNT(AUTO) 3.92 MIL/uL (4.5-6.0); WHITE BLOOD COUNT (AUTO) 9.3 K/uL (4.3-11.0)
[2020-03-15 06:29] LABS: CALCIUM, SERUM 8.9 mg/dL (8.5-10.1); CREATININE 0.8 mg/dL (0.6-1.3); MAGNESIUM 1.7 mg/dL (1.8-2.4); PHOSPHORUS 3.9 mg/dL (2.5-4.9); POTASSIUM 3.7 mmol/L (3.5-5.1)
[2020-03-15 08:00] VITALS: BP 123/82
[2020-03-15] MEDS: PANTOPRAZOLE 40 MG VIAL IV SCH ×2 (08:29→22:02)
[2020-03-15] MEDS: DABIGATRAN ETEXILATE MESYLATE 150 MG CAPSULE PO SCH ×2 (08:30→16:48)
[2020-03-15] MEDS: HYDROCODONE/APAP 10/325MG 1 EA TABLET PO PRN ×2 (08:41→16:53)
[2020-03-15] MEDS: Magnesium 1GM/D5W 100ML PREMIX 100 ML IV SCH ×2 (11:47→12:41)
--- NOTE | 2020-03-15 15:00 | NUR ---
MS RN NOTES PATIENT SHOWERED IN THE SHOWER ROOM, PATIENT REFUSES WOUND CARE DESPITE EXPLANATION OF RISKS AND BENEFITS. MD IS AWARE. INCISION IS CLEAN AND DRY.
[2020-03-15 16:00] VITALS: BP 116/74
--- NOTE | 2020-03-15 18:55 | NUR ---
PRINTING SHOP SUPERVISOR NOTES PATIENT IN BED RESTING NO SOB OR ACUTE DISTRESS NOTED. PATIENT IN STABLE CONDITION. ALL DUE MEDICATIONS ADMINISTERED. ALL NEEDS MET. NO ACUTE CHANGES NOTED DURING SHIFT. WILL ENDORSE CARE TO PM SHIFT.
--- NOTE | 2020-03-15 19:20 | NUR ---
MS RN NOTE RECEIVED PT IN BED AWAKE AND ABLE TO MAKE NEEDS KNOWN. PT A/OX 3. RESPIRATIONS EVEN AND UNLABORED WITH NO S/S OF ACUTE DISTRESS OR SOB NOTED. NO COMPLAINTS OF PAIN AT THIS TIME. SAFETY MEASURES IN PLACE WITH BED IN LOWEST LOCKED POSITION WITH SIDE RAILS UP X2. CALL LIGHT WITHIN REACH. WILL CONTINUE TO MONITOR.
[2020-03-15 20:00] VITALS: BP 125/75
[2020-03-15] MEDS: INSULIN GLARGINE, 100 UNIT/ML CARTRIDGE SQ SCH (22:03)
[2020-03-15] MEDS: *INSULIN REGULAR(HUMULIN R)HUM 100 UNIT/ML VIAL SQ PRN (22:07)
[2020-03-16] MEDS: HYDROCODONE/APAP 10/325MG 1 EA TABLET PO PRN ×2 (06:07→19:28)
[2020-03-16 08:00] VITALS: BP 135/73
[2020-03-16] MEDS: BLOOD SUGAR DIAGNOSTIC 1 EACH STRIP IN SCH ×4 (08:08→21:06)
--- NOTE | 2020-03-16 08:20 | NUR ---
MS RN NOTE PT IN BED AWAKE AND ABLE TO MAKE NEEDS KNOWN. PT A/OX 3. RESPIRATIONS EVEN AND UNLABORED WITH NO S/S OF ACUTE DISTRESS OR SOB NOTED THROUGHOUT SHIFT. NO COMPLAINTS OF PAIN AT THIS TIME. SAFETY MEASURES IN PLACE WITH BED IN LOWEST LOCKED POSITION WITH SIDE RAILS UP X2. CALL LIGHT WITHIN REACH. WILL ENDORSE TO ONCOMING NURSE FOR AVERY.
[2020-03-16] MEDS: PANTOPRAZOLE 40 MG VIAL IV SCH ×2 (09:04→20:59)
[2020-03-16] MEDS: DABIGATRAN ETEXILATE MESYLATE 150 MG CAPSULE PO SCH ×2 (09:05→16:51)
[2020-03-16] MEDS: INSULIN REGULAR, HUMAN 100 UNIT/ML 3 ML VIAL SQ PRN ×3 (09:08→18:00)
[2020-03-16] MEDS: Magnesium 1GM/D5W 100ML PREMIX 100 ML IV SCH ×2 (12:21→13:19)
[2020-03-16 16:00] VITALS: BP 125/77
--- NOTE | 2020-03-16 18:26 | NUR ---
MS RN CLOSING NOTE PATIENT IN BED. A/OX 3. TOLERATING ROOM AIR, RESPIRATIONS ARE EVEN AND UNLABORED. NO SOB NOTED. NO acute DISTRESS. IV ACCESS MAINTAINED IN LACHO MIDLINE PATENT AND SALINE LOCKED. BED REMAINS LOW AND LOCKED HOB ELEVATED IN HIGH FOWLERS, SIDE RIALS UP X2. CALL LIGHT WITHIN REACH. WILL ENDORSE TO NEXT SHIFT
--- NOTE | 2020-03-16 19:10 | NUR ---
RN NOTES PATIENT A/OX3, ABLE TO MAKE NEEDS KNOWN. ON ROOM AIR,, TOLERATING WELL, NO SOB OR RESPIRATORY DISTRESS NOTED, C/O OF ACHING PAIN 10/10 ON RIGHT ARM AMPUTATION, SITE C/D/I, WILL ADMINISTER PRN PAIN MEDICATION. PATIENT AMBULATORY. LACHO MIDLINE FLUSHING AND PATENT, SITE C/D/I. SAFETY MEASURES MAINTAINED; CALL LIGHT WITHIN REACH, SIDE RAILS UP X2, BED LOCKED AND IN LOWEST POSITION. WILL CONT TO MONITOR.
--- NOTE | 2020-03-16 19:40 | NUR ---
REPORT GIVEN TO JOSIE GIMENEZ FOR AVERY.
--- NOTE | 2020-03-16 19:45 | NUR ---
MS RN: RECEIVED PATIENT Patient in bed, awake, A/O x4. Right upper arm amputation with ken intact open to air, reports pain. Patient received PRN [place] at 1928, pain scale, indication and side effect explained to patient patient, verbalized understanding. Fall precaution maintained.
[2020-03-16 20:22] VITALS: BP 153/77
[2020-03-16 20:27] VITALS: BP 153/77
[2020-03-16] MEDS: INSULIN GLARGINE, 100 UNIT/ML CARTRIDGE SQ SCH (21:08)
[2020-03-16] MEDS: *INSULIN REGULAR(HUMULIN R)HUM 100 UNIT/ML VIAL SQ PRN (21:10)
[2020-03-17] MEDS: HYDROCODONE/APAP 10/325MG 1 EA TABLET PO PRN ×3 (03:35→21:34)
--- NOTE | 2020-03-17 06:23 | NUR ---
MS RN: END OF SHIFT REPORT Patient in bed, slept well, adequate oxygenation on room air. Good appetite. Right arm incision, ken open to air, no bleeding, no discharge. Pain controlled with PRN [place]. Ambulates independently, no c/o nausea no vomiting. Plan for dc, pending placement.
[2020-03-17] MEDS: BLOOD SUGAR DIAGNOSTIC 1 EACH STRIP IN SCH ×4 (06:38→21:15)
[2020-03-17] MEDS: INSULIN REGULAR, HUMAN 100 UNIT/ML 3 ML VIAL SQ PRN ×3 (06:40→16:43)
--- NOTE | 2020-03-17 07:20 | NUR ---
MS RN NOTES RECEIVED PT IN BED, ASLEEP, EASILY AROUSED, A/OX4. PT TOLERATING RA, WITH NO ACUTE RESPIRATORY DISTRESS NOTED. PT DENIES ANY PAIN OR DISCOMFORT AT THIS TIME. PT DENIES ANY CONCERNS OR QUESTIONS WELL. PIV TO LACHO MIDLINE, FLUSHED WITH NS, INTACT AND OPERATIONAL. PT KEPT COMFORTABLE. CALL LIGHT KEPT WITHIN REACH. PT'S BED IN LOWEST, LOCKED POSITION WITH SRX3. WILL CONTINUE PLAN OF CARE.
[2020-03-17 08:00] VITALS: BP 137/79
[2020-03-17] MEDS: PANTOPRAZOLE 40 MG VIAL IV SCH ×2 (08:01→21:15)
[2020-03-17] MEDS: DABIGATRAN ETEXILATE MESYLATE 150 MG CAPSULE PO SCH ×2 (08:01→16:42)
[2020-03-17 08:51] LABS: CALCIUM, SERUM 8.9 mg/dL (8.5-10.1); CREATININE 0.7 mg/dL (0.6-1.3); MAGNESIUM 1.8 mg/dL (1.8-2.4); POTASSIUM 3.8 mmol/L (3.5-5.1)
[2020-03-17 16:00] VITALS: BP 112/73
--- NOTE | 2020-03-17 18:40 | NUR ---
MS RN NOTES PT REMAINS IN BED, AWAKE, A/OX4. PT TOLERATING RA, WITH NO ACUTE RESPIRATORY DISTRESS NOTED. PT DENIES ANY PAIN OR DISCOMFORT AT THIS TIME. PIV TO LACHO MIDLINE, FLUSHED WITH NS, INTACT AND OPERATIONAL. ALL NEEDS AND CARE ATTENDED. PT KEPT COMFORTABLE. CALL LIGHT KEPT WITHIN REACH. PT'S BED IN LOWEST, LOCKED POSITION WITH SRX3. WILL ENDORSE TO INCOMING NIGHT NURSE FOR AVERY.
[2020-03-17 20:00] VITALS: BP 105/62
[2020-03-17] MEDS: INSULIN GLARGINE, 100 UNIT/ML CARTRIDGE SQ SCH (21:31)
[2020-03-17] MEDS: *INSULIN REGULAR(HUMULIN R)HUM 100 UNIT/ML VIAL SQ PRN (21:33)
--- NOTE | 2020-03-18 03:55 | NUR ---
RN NOTE REPORT GIVEN TO ARTI GALINDO FOR CONTINUATION OF CARE. Addendum: 03/18/20 at 0356 by STEVEN SOARES RN PT GOING TO ROOM 208-1.
--- NOTE | 2020-03-18 04:10 | NUR ---
RN NOTE PT TRANSFERRED TO MED SURG 2 BED 208-1 IN STABLE CONDITION VIA WHEELCHAIR.
--- NOTE | 2020-03-18 04:38 | NUR ---
received from room 320-1 via w/c alert and orientated smiling and verbalizing his needs. right arm wound GUEST SERVICES ASSISTANT ken seen clean incision. Mrsa of the wound sign posted to alert Hospital staff. Gowns and gloves available.
[2020-03-18] MEDS: HYDROCODONE/APAP 10/325MG 1 EA TABLET PO PRN ×3 (06:37→19:37)
[2020-03-18] MEDS: BLOOD SUGAR DIAGNOSTIC 1 EACH STRIP IN SCH ×4 (06:48→21:23)
[2020-03-18] MEDS: INSULIN REGULAR, HUMAN 100 UNIT/ML 3 ML VIAL SQ PRN ×3 (06:52→17:07)
--- NOTE | 2020-03-18 07:44 | NUR ---
MS RN OPENING NOTE PATIENT IN BED RESTING COMFORTABLY. PATIENT IN NO ACUTE DISTRESS. NO SOB NOTED. PATIENT BREATHING IS EVEN AND UNLABORED. SAFETY PRECAUTIONS IN PLACE. RIGHT UPPER ARM INCISION CLEAN AND INTACT WITH DEVORAH PRESENT AND INTACT. NO S/S OF BLEEDING NOTED. PATIENT BED IS LOCKED AND IN LOWEST POSITION. CALL LIGHT WITHIN REACH. WILL CONTINUE TO MONITOR.
[2020-03-18] MEDS: PANTOPRAZOLE 40 MG VIAL IV SCH ×2 (08:33→21:23)
[2020-03-18 08:54] VITALS: BP 128/66
[2020-03-18] MEDS: DABIGATRAN ETEXILATE MESYLATE 150 MG CAPSULE PO SCH ×2 (09:08→17:09)
[2020-03-18 12:12] VITALS: BP 131/69
[2020-03-18 16:10] VITALS: BP 125/77
--- NOTE | 2020-03-18 17:00 | NUR ---
MS RN NOTE PATIENT REFUSING TO HAVE WOUND CARE PERFORMED. PATIENT STATED " I DONT WANT YOU TO DO ANYTHING PLEASE, THANK YOU BUT IT HURTS MORE WITH THE DRESSING NO MATTER HOW YOU DO IT. I WOULD JUST RATHER LEAVE IT ALONE, DONT WORRY IM REFUSING". EDUCATED RISKS VS BENEFITS AND THE IMPORTANCE OF CHANGING DRESSING 3X. PATIENT CONTINUED TO REFUSE.
--- NOTE | 2020-03-18 18:28 | NUR ---
MS RN CLOSING NOTE PATIENT IN BED RESTING COMFORTABLY. PATIENT IN NO ACUTE DISTRESS. NO SOB NOTED. PATIENT BREATHING IS EVEN AND UNLABORED. SAFETY PRECAUTIONS IN PLACE. RIGHT UPPER ARM INCISION CLEAN AND INTACT WITH DEVORAH PRESENT AND INTACT, OPEN TO AIR. PATIENT REFUSING WOUND CARE DRESSING DESPITE EDUCATION OF RISKS VS BENEFITS. NO S/S OF BLEEDING NOTED. PATIENT KEPT CLEAN, DRY AND COMFORTABLE THROUGHOUT SHIFT. NEEDS AND CONCERNS ADDRESSED. PATIENT BED IS LOCKED AND IN LOWEST POSITION. CALL LIGHT WITHIN REACH. WILL ENDORSE CARE TO PM SHIFT FOR AVERY.
--- NOTE | 2020-03-18 19:40 | NUR ---
MS RN OPENING NOTES RECEIVED PATIENT FROM MORNING SHIFT, ALERT AND ORIENTED X 3. VERBALLY RESPONSIVE AND ABLE TO FOLLOW DIRECTIONS. BREATHING REGULAR AND UNLABORED ON ROOM AIR. LEFT UPPER ARM MIDLINE INTACT AND PATENT, FLUSHING WELL WITH NO BLEEDING OR S/S OF INFILTRATION NOTED. DENIES SUICIDAL IDEATION. COMPLAINED OF 7/10 RIGHT UPPER ARM PAIN, NON-PHARMACOLOGICAL INTERVENTIONS PROVIDED. RIGHT AMPUTATED ARM CLEAN WITH DEVORAH INTACT, NO BLEEDING OR S/S OF INFECTION OBSERVED. BED LOW AND LOCKED ON SEMI FOWLERS POSITION. CALL LIGHT IN REACH. WILL CONTINUE TO MONITOR.
--- NOTE | 2020-03-18 19:45 | NUR ---
MS RN NOTES COMPLAINED OF 7/10 RIGHT UPPER ARM PAIN, NORCO 10/325 GIVEN BY MOUTH. NON-PHARMACOLOGICAL INTERVENTIONS PROVIDED. VITAL SIGNS WNL. WILL CONTINUE TO MONITOR.
[2020-03-18 20:00] VITALS: BP 115/73
[2020-03-18 20:10] VITALS: BP 115/73
[2020-03-18] MEDS: INSULIN GLARGINE, 100 UNIT/ML CARTRIDGE SQ SCH (21:25)
[2020-03-18] MEDS: *INSULIN REGULAR(HUMULIN R)HUM 100 UNIT/ML VIAL SQ PRN (21:28)
--- NOTE | 2020-03-18 22:00 | NUR ---
MS RN NOTES BS 274mg/dl, 38UNITS LANTUS AND 6UNITS REGULAR INSULIN GIVEN SQ. SITE ROTATED. SNACKS PROVIDED ON BEDSIDE. WILL CONTINUE TO MONITOR.
[2020-03-19] MEDS: HYDROCODONE/APAP 10/325MG 1 EA TABLET PO PRN ×2 (01:37→08:55)
[2020-03-19 04:00] VITALS: BP 110/68
--- NOTE | 2020-03-19 06:25 | NUR ---
MS RN CLOSING NOTES PATIENT IN BED, ALERT AND ORIENTED X 3. AFEBRILE WITH NO S/S OF DISTRESS OBSERVED. LEFT UPPER ARM MIDLINE PATENT AND FLUSHING WELL. DENIES ANY PAIN/DISCOMFORT AT THIS TIME. REFUSED WOUND TREATMENT, RISK AND BENEFITS EXPLAINED. BED LOW AND LOCKED ON SEMI FOWLERS POSITION. CALL LIGHT IN REACH. WILL ENDORSE TO MORNING SHIFT FOR AVERY.
[2020-03-19] MEDS: BLOOD SUGAR DIAGNOSTIC 1 EACH STRIP IN SCH ×3 (06:54→16:37)
[2020-03-19] MEDS: INSULIN REGULAR, HUMAN 100 UNIT/ML 3 ML VIAL SQ PRN ×3 (06:56→16:37)
--- NOTE | 2020-03-19 07:35 | NUR ---
MS RN NOTES PATIENT IN BED RESTING NO SOB OR ACUTE DISTRESS NOTED. PATIENT ALERT, ORIENTED X 3. BED IN LOW LOCKED POSITION. SAFETY MEASURES IN PLACE. CALL LIGHT WITHIN REACH. WILL CONTINUE TO MONITOR.
[2020-03-19] MEDS: PANTOPRAZOLE 40 MG VIAL IV SCH (08:43)
[2020-03-19] MEDS: DABIGATRAN ETEXILATE MESYLATE 150 MG CAPSULE PO SCH ×2 (08:44→16:35)
[2020-03-19 08:49] VITALS: BP 105/69
[2020-03-19 10:00] VITALS: BP 105/69
--- NOTE | 2020-03-19 12:54 | NUR ---
EHS SPECIALIST returned pt's light armored vehicle officer Agent Hugh's (Mr. Vazquez) call and informed him, case management is looking for a placement for the pt. Susanne Vazquez wanted to speak to the pt. EHS SPECIALIST transferred call to [facility] nursing station.
[2020-03-19 16:55] VITALS: BP 136/79
--- NOTE | 2020-03-19 17:07 | NUR ---
MS RN NOTES CALLED [facility] CONFIRMED PATIENTS PRESCRIPTIONS WAITING FOR [facility] RINDER.
[2020-03-19] MEDS: ACETAMINOPHEN 325 MG TABLET PO PRN (18:22)
--- NOTE | 2020-03-19 18:40 | NUR ---
MS RN NOTES PATIENT DISCHARGED TO [facility] IN STABLE CONDITION. ALL DISCHARGE TEACHING PROVIDED VERBALIZED UNDERSTANDING. DISCHARGE PROTOCOL FOLLOWED. PATIENT PROVIDED WITH DONATED CLOTHS. PICTURES TAKEN FOR DISCHARGE. PATIENT REFUSED WOUND CARE. INCISION APPEARS INTACT PATENT. PERIPHERAL IV REMOVED WITH MINIMAL BLEEDING. ID BAND REMOVED. PATIENT ESCORTED TO [facility]. PATIENT PROVIDED WITH PHONE NUMBER TO DR. ROY FOR FOLLOW UP. PHARMACY HAD MEDICATIONS READY FOR PATIENT. PATIENT ESCORTED TO [facility] BY [facility].
== END 2020-03-19 18:40 | disposition home or self-care (01) | DRG 182 ==
LOC: ICU 20:54 → TELE-TD 02-16 13:48 → TELE1 02-16 13:52 → MEDSG1 02-19 15:16 → TELE1 02-19 22:02 → MEDSG1 02-25 15:23 → TELE1 02-26 11:10 → MED 02-29 10:23 → MEDSG2 03-18 03:51
PROVIDERS: ADMIT Nurse Practitioner Acute Care; ATTEND Nurse Practitioner Acute Care
PROC: 03C70ZZ Extirpation of Matter from Right Brachial Artery, Open Approach (ICD-10-PCS; 2020-02-14)
PROC: 03C90ZZ Extirpation of Matter from Right Ulnar Artery, Open Approach (ICD-10-PCS; 2020-02-14)
PROC: 03CY0ZZ Extirpation of Matter from Upper Artery, Open Approach (ICD-10-PCS; 2020-02-14)
PROC: 03C50ZZ Extirpation of Matter from Right Axillary Artery, Open Approach (ICD-10-PCS; 2020-02-14)
PROC: 03CB0ZZ Extirpation of Matter from Right Radial Artery, Open Approach (ICD-10-PCS; 2020-02-14)
PROC: 0KN70ZZ Release Right Upper Arm Muscle, Open Approach (ICD-10-PCS; principal; 2020-02-15)
PROC: 05HY33Z Insertion of Infusion Device into Upper Vein, Percutaneous Approach (ICD-10-PCS; 2020-02-16)
PROC: 30233N1 Transfusion of Nonautologous Red Blood Cells into Peripheral Vein, Percutaneous Approach (ICD-10-PCS; 2020-02-28)
PROC: 0KX Muscles, Transfer (ICD-10-PCS; 2020-03-02)
PROC: 0X6B0ZZ Detachment at Right Elbow Region, Open Approach (ICD-10-PCS; 2020-03-02)
PROC: 0DB68ZX Excision of Stomach, Via Natural or Artificial Opening Endoscopic, Diagnostic (ICD-10-PCS; 2020-03-05)
DX: I82.621 Acute embolism and thrombosis of deep veins of right upper extremity (principal); N17.0 Acute kidney failure with tubular necrosis; U07.1 COVID-19; E11.10 Type 2 diabetes mellitus with ketoacidosis without coma; J12.89 Other viral pneumonia; D62 Acute posthemorrhagic anemia; D68.59 Other primary thrombophilia; E11.65 Type 2 diabetes mellitus with hyperglycemia; E87.1 Hypo-osmolality and hyponatremia; Z59.0 Homelessness; Z86.19 Personal history of other infectious and parasitic diseases; E11.52 Type 2 diabetes mellitus with diabetic peripheral angiopathy with gangrene; E86.1 Hypovolemia; F19.11 Other psychoactive substance abuse, in remission; F17.200 Nicotine dependence, unspecified, uncomplicated; F10.11 Alcohol abuse, in remission; Y90.9 Presence of alcohol in blood, level not specified; E87.0 Hyperosmolality and hypernatremia; E87.6 Hypokalemia; I10 Essential (primary) hypertension; I99.8 Other disorder of circulatory system; Z91.19 Patient's noncompliance with other medical treatment and regimen; Z79.01 Long term (current) use of anticoagulants; K29.80 Duodenitis without bleeding; K29.70 Gastritis, unspecified, without bleeding; J98.11 Atelectasis
CPT/HCPCS: 36410; 36415; 71045-TC; 80048-TC; 80053-TC; 80061-TC; 80202-TC; 81000-TC; 82272-TC; 82728-TC; 82962-TC; 83540-TC; 83735-TC; 84100-TC; 85025-TC; 85027-TC; 85385-TC; 85396; 85610-TC; 85730-TC; 86140-TC; 86850-TC; 86921-TC; 87040-TC; 87070-TC; 87081-TC; 87086-TC; 87186-TC; 88304-TC; 88305-TC; 88307-TC; 88312-TC; 93307-TC; 97110-TC; 97116-TC; 97530-TC; A4216; A4349; A4565; A6209; A6253; A6403; A9563; C1757; C1769; C9113; G0378; J0330; J0690; J0692; J1100; J1170; J1642; J1644; J1650; J1815; J1885; J2060; J2185; J2250; J2270; J2274; J2405; J2704; J2710; J3370; J3475; J3480; J3490; J7030; J7050; J7060; J7070; P9016-BL; Q9966; U0003-CS